=== PATIENT | male | born 1955 | race Caucasian/White ===

== ENCOUNTER 2017-04-25 14:02 | Inpatient (IN) | payer MEDICARE, MEDICAID ==
[~2017-04-25] VITALS: Ht 177.8 cm; Wt 103.9 kg
[2017-04-25 14:04] VITALS: BP 107/56
[2017-04-25 15:07] LABS: BASOPHILS % (AUTO) 0.5 % (0.0-2.0); EOSINOPHILS % (AUTO) 0.4 % (0.0-3.0); HEMATOCRIT 26.7 % (42.0-52.0); HEMOGLOBIN 8.1 G/DL (14.2-18.0); LYMPHOCYTES % (AUTO) 16.9 % (20.0-45.0); MEAN CORPUSCULAR VOLUME 71 FL (80-99); MONOCYTES % (AUTO) 6.1 % (1.0-10.0); NEUTROPHILS % (AUTO) 76.1 % (45.0-75.0); PLATELET COUNT 514 K/UL (150-450); RED BLOOD COUNT 3.78 M/UL (4.70-6.10); RED CELL DISTRIBUTION WIDTH 16.4 % (11.6-14.8); WHITE BLOOD COUNT 12.7 K/UL (4.8-10.8)
[2017-04-25 15:17] LABS: ANION GAP 4 mmol/L (5-15); BLOOD UREA NITROGEN 12 mg/dL (7-18); CARBON DIOXIDE 29 MMOL/L (21-32); CHLORIDE 102 MMOL/L (98-107); CREATININE 0.6 MG/DL (0.55-1.30); POTASSIUM 3.9 MMOL/L (3.5-5.1); SODIUM 135 MMOL/L (136-145)
[2017-04-25 15:19] LABS: INR 1.4 (0.9-1.1)
[2017-04-25] MEDS ORDERED: ATIVAN1 MG ORAL (15:22)
[2017-04-25] MEDS ORDERED: XARELTO10 MG ORAL (15:22)
[2017-04-25] MEDS ORDERED: ASPIR 8181 MG ORAL (15:22)
[2017-04-25] MEDS ORDERED: ZYPREXA5 MG ORAL (15:22)
[2017-04-25] MEDS ORDERED: METOPROLOL SUCC25 MG ORAL (15:22)
[2017-04-25] MEDS ORDERED: HYDRALAZINE HCL50 MG ORAL (15:22)
[2017-04-25] MEDS ORDERED: TRAZODONE HCL50 MG ORAL (15:22)
[2017-04-25] MEDS ORDERED: NORCO 10-325 T1 EACH ORAL (15:22)
[2017-04-25] MEDS ORDERED: ABILIFY2 MG ORAL (15:22)
[2017-04-25] MEDS ORDERED: FERROUS SULFAT325 MG ORAL (15:22)
[2017-04-25] MEDS ORDERED: CARDIZEM30 M1 PO (15:22)
[2017-04-25] MEDS ORDERED: BISACODYL5 MG ORAL (15:22)
--- NOTE | 2017-04-25 15:27 | Diagnostic Imaging Report ---
Indication: Cough, shortness of breath Technique: One view of the chest Comparison: none Findings: The heart is enlarged. There is pleural fluid on the left. Hazy opacities are seen at both lung bases, may reflect overlying soft tissue but infiltrates/edema suspected Impression: Left-sided pleural effusion Bibasilar infiltrates or edema Cardiomegaly
[2017-04-25 15:28] LABS: APPEARANCE,URINE CLEAR; BILIRUBIN, URINE NEGATIVE (NEGATIVE); GLUCOSE, URINE (UA) NEGATIVE (NEGATIVE); KETONES,URINE 1+ (NEGATIVE); LEUKOCYTE ESTERASE ,URINE 1+ (NEGATIVE); NITRITE,URINE NEGATIVE (NEGATIVE); PH,URINE 5 (4.5-8.0); PROTEIN,URINE 1+ (NEGATIVE); UROBILINOGEN,URINE 1 MG/DL (0.0-1.0)
[2017-04-25 15:31] LABS: COLOR,URINE YELLOW
[2017-04-25 15:31] LABS: ALANINE AMINOTRANSFERASE 52 U/L (12-78); ALBUMIN 1.5 G/DL (3.4-5.0); ALBUMIN/GLOBULIN RATIO 0.3 (1.0-2.7); ALKALINE PHOSPHATASE 108 U/L (46-116); ASPARTATE AMINO TRANSFERASE 67 U/L (15-37); BILIRUBIN,TOTAL 0.4 MG/DL (0.2-1.0); CKMB < 0.5 NG/ML (0.0-3.6); CREATINE KINASE 32 U/L (26-308)
[2017-04-25 16:05] VITALS: BP 119/70
--- NOTE | 2017-04-25 16:12 | Diagnostic Imaging Report ---
Indications: Head trauma Technique: Spiral acquisitions obtained through the brain. Angled axial and coronal 5 x 5 mm slices were reconstructed. Total dose length product 1537.87 mGycm. CTDI vol(s) 70.38 mGy. Dose reduction achieved using automated exposure control Comparison: None. Findings: There is a bilobed subcutaneous lesion in the left posterior temporal parietal scalp which measures 3.7 cm AP by 4.3 cm craniocaudad, elevates the overlying skin. No acute intracranial hemorrhage or edema, mass effect, nor midline shift. Normal burger-white differentiation. There is minimal age-related enlargement of the ventricles and extra axial CSF spaces and minimal periventricular deep white matter low-attenuation. The calvarium is intact. There is mastoid opacification on the left, and minimal mastoid opacification on the right. Visualized orbits and sinuses are unremarkable Impression: Negative for acute intracranial bleed or mass effect Mild chronic and age-related changes, as described Left temporoparietal subcutaneous scalp lesion, presumably a dermal lesion, should be clinically evident The CT scanner at [facility] is accredited by the [employer] and the scans are performed using protocols designed to limit radiation exposure to as low as reasonably achievable to attain images of sufficient resolution adequate for diagnostic evaluation.
[2017-04-25] MEDS ORDERED: Albuterol/Ipratropium 3ml neb HHN PRN (18:45)
--- NOTE | 2017-04-25 19:13 | Emergency Room Report ---
History of Present Illness General Chief Complaint: Abnormal Labs Source: Patient, EMS Present Illness HPI 62-year-old male presents ED for evaluation. Patient coming from intermediate for low hemoglobin. Patient also complaining of shortness of breath. Denies any chest pain. Denies any cough. Denies any fevers or chills. Denies any blood in stool. No other aggravating or relieving factors. 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 Hx Gastrointestinal Problems: No Review of Systems All Other Systems: negative except mentioned in HPI Physical Exam Vital Signs Date Time Temp Pulse Resp B/P (MAP) Pulse Ox O2 Delivery O2 Flow Rate FiO2 04/25/17 13:54 97.9 73 19 102/67 97 Nasal Cannula 3.0 97.9 Sp02 EP Interpretation: reviewed, normal General Appearance: no apparent distress, alert, GCS 15, non-toxic Head: normocephalic, atraumatic Eyes: bilateral eye normal inspection, bilateral eye PERRL ENT: hearing grossly normal, normal pharynx, no angioedema, normal voice Neck: full range of motion, supple/symm/no masses Respiratory: chest non-tender, lungs clear, normal breath sounds, speaking full sentences Cardiovascular #1: regular rate, rhythm, no edema Cardiovascular #2: 2+ carotid (R), 2+ carotid (L), 2+ radial (R), 2+ radial (L) , 2+ dorsalis pedis (R), 2+ dorsalis pedis (L) Gastrointestinal: normal bowel sounds, non tender, soft, non-distended, no guarding, no rebound Rectal: deferred Genitourinary: normal inspection, no CVA tenderness Musculoskeletal: back normal, gait/station normal, normal range of motion, non- tender Neurologic: alert, oriented x3, responsive, motor strength/tone normal, sensory intact, speech normal Psychiatric: judgement/insight normal, memory normal, mood/affect normal, no suicidal/homicidal ideation Reflexes: 3+ bicep (R), 3+ bicep (L), 3+ tricep (R), 3+ tricep (L), 3+ knee (R) , 3+ knee (L) Skin: normal color, no rash, warm/dry, well hydrated Lymphatic: no adenopathy Medical Decision Making Diagnostic Impression: Primary Impression: Shortness of breath Additional Impressions: Pneumonia Qualified Codes: J18.1 - Lobar pneumonia, unspecified organism Anemia Qualified Codes: D64.9 - Anemia, unspecified ER Course Hospital Course 62-year-old male presents ED with shortness of breath, weakness, sent in for low hemoglobin Differential diagnoses include: Pneumonia, CHF exacerbation, pneumothorax, fluid overload Clinical course Patient placed on stretcher. 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 After initial history and physical, I ordered labs, IV fluids, EKG, chest x-ray, blood cultures, UA. Patient placed on nasal cannula with O2 saturation improving Labs -leukocytosis noted, hemoglobin 8.1, electrolytes ok, trop negative CXR - bilateral interstitial edema vs infiltrates abx given. no indication for tranfusions at this time Case discussed with Dr. Lira and he agreed to the patient to his service for further care and support I feel this is a highly complex case requiring extensive working including EKG/ Rhythm strip, Xray/CT/US, Blood/urine lab work, repeat exams while in ED, and administration of strong opiates/narcotics for pain control, admission to hospital or close patient follow up. Diagnosis - pneumonia, sob, anemia Patient admitted to telemetry in serious condition Labs Test 04/25/17 14:40 04/25/17 14:50 White Blood Count 12.7 K/UL (4.8-10.8) Red Blood Count 3.78 M/UL (4.70-6.10) Hemoglobin 8.1 G/DL (14.2-18.0) Hematocrit 26.7 % (42.0-52.0) Mean Corpuscular Volume 71 FL (80-99) Mean Corpuscular Hemoglobin 21.4 PG (27.0-31.0) Mean Corpuscular Hemoglobin Concent 30.4 G/DL (32.0-36.0) Red Cell Distribution Width 16.4 % (11.6-14.8) Platelet Count 514 K/UL (150-450) Mean Platelet Volume 5.0 FL (6.5-10.1) Neutrophils (%) (Auto) 76.1 % (45.0-75.0) Lymphocytes (%) (Auto) 16.9 % (20.0-45.0) Monocytes (%) (Auto) 6.1 % (1.0-10.0) Eosinophils (%) (Auto) 0.4 % (0.0-3.0) Basophils (%) (Auto) 0.5 % (0.0-2.0) Prothrombin Time 14.7 SEC (9.30-11.50) Prothromb Time International Ratio 1.4 (0.9-1.1) Activated Partial Thromboplast Time 41 SEC (23-33) Sodium Level 135 MMOL/L (136-145) Potassium Level 3.9 MMOL/L (3.5-5.1) Chloride Level 102 MMOL/L (98-107) Carbon Dioxide Level 29 MMOL/L (21-32) Anion Gap 4 mmol/L (5-15) Blood Urea Nitrogen 12 mg/dL (7-18) Creatinine 0.6 MG/DL (0.55-1.30) Estimat Glomerular Filtration Rate > 60 mL/min (>60) Glucose Level 115 MG/DL (74-106) Lactic Acid Level 0.80 mmol/L (0.66-2.22) Calcium Level 10.0 MG/DL (8.5-10.1) Total Bilirubin 0.4 MG/DL (0.2-1.0) Aspartate Amino Transf (AST/SGOT) 67 U/L (15-37) Alanine Aminotransferase (ALT/SGPT) 52 U/L (12-78) Alkaline Phosphatase 108 U/L (46-116) Total Creatine Kinase 32 U/L (26-308) Creatine Kinase MB < 0.5 NG/ML (0.0-3.6) Creatine Kinase MB Relative Index 1.5 Troponin I 0.000 ng/mL (0.000-0.056) Pro-B-Type Natriuretic Peptide 454 pg/mL (0-125) Total Protein 7.2 G/DL (6.4-8.2) Albumin 1.5 G/DL (3.4-5.0) Globulin 5.7 g/dL Albumin/Globulin Ratio 0.3 (1.0-2.7) Urine Color Yellow Urine Appearance Clear Urine pH 5 (4.5-8.0) Urine Specific [place] 1.020 (1.005-1.035) Urine Protein 1+ (NEGATIVE) Urine Glucose (UA) Negative (NEGATIVE) Urine Ketones 1+ (NEGATIVE) Urine Occult Blood Negative (NEGATIVE) Urine Nitrite Negative (NEGATIVE) Urine Bilirubin Negative (NEGATIVE) Urine Urobilinogen 1 MG/DL (0.0-1.0) Urine Leukocyte Esterase 1+ (NEGATIVE) Urine RBC 0-2 /HPF (0 - 0) Urine WBC 0-2 /HPF (0 - 0) Urine Squamous Epithelial Cells Occasional /LPF Urine Bacteria Occasional /HPF (NONE) Urine Mucus Occasional /LPF Chest X-Ray Diagnostic Results Chest X-Ray Diagnostic Results : Chest X-Ray Ordered: Yes # of Views/Limited/Complete: 1 View Indication: Shortness of Breath EP Interpretation: Yes Interpretation: no pneumothorax, other - bilateral effusion ? infiltrates Impression: Other - chf vs pna Electronically Signed by: Electronically signed by Phoenix Snyder MD Last Vital Signs Date Time Temp Pulse Resp B/P (MAP) Pulse Ox O2 Delivery O2 Flow Rate FiO2 04/25/17 17:01 98.0 65 15 119/70 97 Nasal Cannula 3.0 98.0 Status: improved Disposition: ADMITTED INPATIENT Condition: Serious Referrals: ANNA LIRA (PCP) PHOENIX SNYDER M.D. Apr 25, 2017 19:13
[2017-04-25 20:00] VITALS: BP 130/67
[2017-04-25] MEDS: Zoysn 3.37gm in NS 100ML IVPB SCH (20:00)
[2017-04-25] MEDS: Heparin 5000 units/ml inj SUBQ SCH (21:02)
[2017-04-25] MEDS: Albuterol ud Inhalation HHN SCH (21:31)
[2017-04-25] MEDS: HYDROcodone/Acetamin 10/325 tab ORAL PRN (23:03)
[2017-04-26] VITALS (7 sets, daily range): BP systolic 99–152; BP diastolic 55–81
[2017-04-26] MEDS: Zoysn 3.37gm in NS 100ML IVPB SCH ×2 (04:23→12:27)
[2017-04-26] MEDS: Heparin 5000 units/ml inj SUBQ SCH ×2 (09:59→20:51)
--- NOTE | 2017-04-26 10:42 | Consultation ---
History of Present Illness General Date patient seen: Apr 26, 2017 Time patient seen: 10:35 Chief Complaint: Abnormal Labs Present Illness HPI 62 y/o M with hx of HTN, Afib presents to ED on 04/25 from [place] for anemia, SOB, cough. Denies CP, f/c, melena, rash n/v/d Leukocytosis to 12.7, afebrile. CXR with bibasilar infiltartes. u/a neg. Allergies: Coded Allergies: FUROSEMIDE (Verified Allergy, Unknown, 04/25/17) Medication History Scheduled Aripiprazole* (Abilify*), 2 MG ORAL BID, (Reported) Aspirin* (Aspir 81*), 81 MG ORAL DAILY, (Reported) Bisacodyl* (Dulcolax*), 5 MG ORAL DAILY, (Reported) Diltiazem Hcl* (Cardizem*), 30 MG PO QID, (Reported) Ferrous Sulfate* (Ferrous Sulfate*), 325 MG ORAL DAILY, (Reported) Hydralazine Hcl* (Hydralazine Hcl*), 50 MG ORAL EVERY 8 HOURS, (Reported) Lorazepam* (Ativan*), 1 MG ORAL EVERY 8 HOURS, (Reported) Metoprolol Succinate* (Metoprolol Succinate*), 12.5 MG ORAL BID, (Reported) Olanzapine* (Zyprexa*), 5 MG ORAL DAILY, (Reported) Rivaroxaban (Xarelto*), 20 MG ORAL DAILY, (Reported) Trazodone Hcl* (Desyrel*), 50 MG ORAL BEDTIME, (Reported) Scheduled PRN Hydrocodone Bit/Acetaminophen 10-325* ([place] 10-325*), 1 TAB ORAL Q6H PRN for For Pain, (Reported) Patient History Healthcare decision maker PT Resuscitation status Advanced Directive on File Patient History Narrative Pmhx: as above Shx: Denies: smoking, alcohol use, drug use Fhx: non contributory Review of Systems All Other Systems: negative except mentioned in HPI Physical Exam Physical Exam Narrative General Appearance: no apparent distress, alert,non-toxic HEENT: normocephalic, atraumatic, normal pharynx, Neck: full range of motion, supple/symm/no masses Respiratory: chest non-tender, lungs clear, normal breath sounds, speaking full sentences Cardiovascular : regular rate, rhythm, no edema Gastrointestinal: normal bowel sounds, non tender, soft, non-distended, no guarding, no rebound Genitourinary: normal inspection, no CVA tenderness Musculoskeletal: back normal, gait/station normal, normal range of motion, non- tender Neurologic: alert, oriented x3, responsive, motor strength/tone normal, sensory intact, speech normal Skin: normal color, no rash, warm/dry, well hydrated Lymphatic: no adenopathy Last 24 Hour Vital Signs Date Time Temp Pulse Resp B/P (MAP) Pulse Ox O2 Delivery O2 Flow Rate FiO2 04/26/17 08:00 98.2 81 19 129/81 96 Room Air 98.2 04/26/17 04:00 77 04/26/17 04:00 98.6 81 20 99/56 95 Room Air 98.6 04/26/17 00:00 98.2 89 24 106/55 92 Room Air 98.2 04/26/17 00:00 94 04/25/17 21:42 87 18 97 Nasal Cannula 2.0 28 04/25/17 21:41 28 04/25/17 21:32 81 18 93 Nasal Cannula 2.0 28 04/25/17 21:29 Nasal Cannula 2.0 28 04/25/17 21:27 94 18 Nasal Cannula 2.0 28 04/25/17 20:00 98.1 72 20 130/67 96 Nasal Cannula 3.0 98.1 04/25/17 20:00 77 04/25/17 17:01 98.0 65 15 119/70 97 Nasal Cannula 3.0 98.0 04/25/17 16:05 98.0 65 15 119/70 97 Nasal Cannula 3.0 98.0 04/25/17 14:04 97.7 71 23 107/56 98 Nasal Cannula 3.0 97.7 04/25/17 13:54 97.9 73 19 102/67 97 Nasal Cannula 3.0 97.9 Intake and Output 04/25/17 04/26/17 19:00 07:00 Intake Total 1000 ml Output Total 100 ml 200 ml Balance 900 ml -200 ml Intake IV Total 1000 ml Output Urine Total 100 ml 200 ml # Voids 1 Laboratory Tests Test 04/25/17 14:40 04/25/17 14:50 White Blood Count 12.7 K/UL (4.8-10.8) H Red Blood Count 3.78 M/UL (4.70-6.10) L Hemoglobin 8.1 G/DL (14.2-18.0) L Hematocrit 26.7 % (42.0-52.0) L Mean Corpuscular Volume 71 FL (80-99) L Mean Corpuscular Hemoglobin 21.4 PG (27.0-31.0) L Mean Corpuscular Hemoglobin Concent 30.4 G/DL (32.0-36.0) L Red Cell Distribution Width 16.4 % (11.6-14.8) H Platelet Count 514 K/UL (150-450) H Mean Platelet Volume 5.0 FL (6.5-10.1) L Neutrophils (%) (Auto) 76.1 % (45.0-75.0) H Lymphocytes (%) (Auto) 16.9 % (20.0-45.0) L Monocytes (%) (Auto) 6.1 % (1.0-10.0) Eosinophils (%) (Auto) 0.4 % (0.0-3.0) Basophils (%) (Auto) 0.5 % (0.0-2.0) Prothrombin Time 14.7 SEC (9.30-11.50) H Prothromb Time International Ratio 1.4 (0.9-1.1) H Activated Partial Thromboplast Time 41 SEC (23-33) H Sodium Level 135 MMOL/L (136-145) L Potassium Level 3.9 MMOL/L (3.5-5.1) Chloride Level 102 MMOL/L (98-107) Carbon Dioxide Level 29 MMOL/L (21-32) Anion Gap 4 mmol/L (5-15) L Blood Urea Nitrogen 12 mg/dL (7-18) Creatinine 0.6 MG/DL (0.55-1.30) Estimat Glomerular Filtration Rate > 60 mL/min (>60) Glucose Level 115 MG/DL (74-106) H Lactic Acid Level 0.80 mmol/L (0.66-2.22) Calcium Level 10.0 MG/DL (8.5-10.1) Total Bilirubin 0.4 MG/DL (0.2-1.0) Aspartate Amino Transf (AST/SGOT) 67 U/L (15-37) H Alanine Aminotransferase (ALT/SGPT) 52 U/L (12-78) Alkaline Phosphatase 108 U/L (46-116) Total Creatine Kinase 32 U/L (26-308) Creatine Kinase MB < 0.5 NG/ML (0.0-3.6) Creatine Kinase MB Relative Index 1.5 Troponin I 0.000 ng/mL (0.000-0.056) Pro-B-Type Natriuretic Peptide 454 pg/mL (0-125) H Total Protein 7.2 G/DL (6.4-8.2) Albumin 1.5 G/DL (3.4-5.0) L Globulin 5.7 g/dL Albumin/Globulin Ratio 0.3 (1.0-2.7) L Urine Color Yellow Urine Appearance Clear Urine pH 5 (4.5-8.0) Urine Specific [place] 1.020 (1.005-1.035) Urine Protein 1+ (NEGATIVE) H Urine Glucose (UA) Negative (NEGATIVE) Urine Ketones 1+ (NEGATIVE) H Urine Occult Blood Negative (NEGATIVE) Urine Nitrite Negative (NEGATIVE) Urine Bilirubin Negative (NEGATIVE) Urine Urobilinogen 1 MG/DL (0.0-1.0) H Urine Leukocyte Esterase 1+ (NEGATIVE) H Urine RBC 0-2 /HPF (0 - 0) H Urine WBC 0-2 /HPF (0 - 0) Urine Squamous Epithelial Cells Occasional /LPF Urine Bacteria Occasional /HPF (NONE) Urine Mucus Occasional /LPF Height (Feet): 5 Height (Inches): 10.00 Weight (Pounds): 230 Medications Current Medications Medications (Trade) Dose Ordered Sig/[place] Route PRN Reason Start Time Stop Time Status Last Admin Dose Admin Acetaminophen (Tylenol) 650 mg Q4H PRN ORAL Mild Pain/Temp > 100.5 04/25/17 18:45 05/25/17 18:44 Acetaminophen/ Hydrocodone Bitart ([place] 10/325) 1 tab Q6HR PRN ORAL For Pain 04/25/17 22:15 05/02/17 22:14 04/25/17 23:03 Albuterol Sulfate (Proventil) 2.5 mg BIDRT HHN 04/25/17 17:15 04/30/17 17:14 04/25/17 21:31 Albuterol/ Ipratropium (Albuterol/ Ipratropium) 3 ml Q4HRT PRN HHN shortness of breath 04/25/17 18:45 04/30/17 18:44 Heparin Sodium (Porcine) (Heparin 5000 units/ml) 5,000 units EVERY 12 HOURS SUBQ 04/25/17 21:00 05/25/17 20:59 04/26/17 09:59 Piperacillin Sod/ Tazobactam Sod 3.375 gm/Sodium Chloride 110 ml @ 27.5 mls/hr Q8H IVPB 04/25/17 20:00 05/02/17 23:59 04/26/17 04:23 Assessment/Plan Assessment/Plan Abx: Zosyn 04/25- Levaquin x1 04/25 Assessment: SOB- PNA vs pulmonary edema -sp cx p -influenza sc p Mild leukocytosis -afebrile -u/a neg -Bcx p HTN Afib Plan: -Switch Zosyn #2 to Ceftrixone and Azithromycin for possible PNA -f/u cx -Monitor CBC/CMP, temperatures Thank you for this consultation. Will continue to follow along with you. Discussed with Ofelia Saravia M.D. Apr 26, 2017 10:42
[2017-04-26] MEDS: HYDROcodone/Acetamin 10/325 tab ORAL PRN ×2 (11:07→20:38)
[2017-04-26] MEDS: Albuterol ud Inhalation HHN SCH ×2 (11:15→21:17)
--- NOTE | 2017-04-26 13:23 | Consultation ---
History of Present Illness General Date patient seen: Apr 26, 2017 Chief Complaint: Abnormal Labs Present Illness HPI 62-year-old male with hx of Afib, COPD, smoking, presents ED for evaluation of shortness of breath and cough for a few days. He was smoking up to a few month ago. Denies any chest pain. Denies any cough. Denies any fevers or chills. He was borderline hypotensive and tachycardic and admitted to telemetry. Allergies: Coded Allergies: FUROSEMIDE (Verified Allergy, Unknown, 04/25/17) Medication History Scheduled Aripiprazole* (Abilify*), 2 MG ORAL BID, (Reported) Aspirin* (Aspir 81*), 81 MG ORAL DAILY, (Reported) Bisacodyl* (Dulcolax*), 5 MG ORAL DAILY, (Reported) Diltiazem Hcl* (Cardizem*), 30 MG PO QID, (Reported) Ferrous Sulfate* (Ferrous Sulfate*), 325 MG ORAL DAILY, (Reported) Hydralazine Hcl* (Hydralazine Hcl*), 50 MG ORAL EVERY 8 HOURS, (Reported) Lorazepam* (Ativan*), 1 MG ORAL EVERY 8 HOURS, (Reported) Metoprolol Succinate* (Metoprolol Succinate*), 12.5 MG ORAL BID, (Reported) Olanzapine* (Zyprexa*), 5 MG ORAL DAILY, (Reported) Rivaroxaban (Xarelto*), 20 MG ORAL DAILY, (Reported) Trazodone Hcl* (Desyrel*), 50 MG ORAL BEDTIME, (Reported) Scheduled PRN Hydrocodone Bit/Acetaminophen 10-325* ([place] 10-325*), 1 TAB ORAL Q6H PRN for For Pain, (Reported) Patient History Healthcare decision maker PT Resuscitation status Advanced Directive on File Past Medical/Surgical History Past Medical/Surgical History: (1) COPD (chronic obstructive pulmonary disease) (2) History of smoking Review of Systems All Other Systems: negative except mentioned in HPI Physical Exam General Appearance: WD/WN Lines, tubes and drains: peripheral HEENT: normocephalic, atraumatic Neck: non-tender, normal alignment Respiratory/Chest: chest wall non-tender, lungs clear Breasts: no masses Cardiovascular/Chest: normal peripheral pulses, normal rate Abdomen: normal bowel sounds, non tender Last 24 Hour Vital Signs Date Time Temp Pulse Resp B/P (MAP) Pulse Ox O2 Delivery O2 Flow Rate FiO2 04/26/17 12:06 98.2 04/26/17 12:00 98.2 89 19 136/72 97 Room Air 98.2 04/26/17 08:00 98.2 81 19 129/81 96 Room Air 98.2 04/26/17 04:00 77 04/26/17 04:00 98.6 81 20 99/56 95 Room Air 98.6 04/26/17 00:00 98.2 89 24 106/55 92 Room Air 98.2 04/26/17 00:00 94 04/25/17 21:42 87 18 97 Nasal Cannula 2.0 28 04/25/17 21:41 28 04/25/17 21:32 81 18 93 Nasal Cannula 2.0 28 04/25/17 21:29 Nasal Cannula 2.0 28 04/25/17 21:27 94 18 Nasal Cannula 2.0 28 04/25/17 20:00 98.1 72 20 130/67 96 Nasal Cannula 3.0 98.1 04/25/17 20:00 77 04/25/17 17:01 98.0 65 15 119/70 97 Nasal Cannula 3.0 98.0 04/25/17 16:05 98.0 65 15 119/70 97 Nasal Cannula 3.0 98.0 04/25/17 14:04 97.7 71 23 107/56 98 Nasal Cannula 3.0 97.7 04/25/17 13:54 97.9 73 19 102/67 97 Nasal Cannula 3.0 97.9 Intake and Output 04/25/17 04/26/17 19:00 07:00 Intake Total 1000 ml Output Total 100 ml 200 ml Balance 900 ml -200 ml Intake IV Total 1000 ml Output Urine Total 100 ml 200 ml # Voids 1 Laboratory Tests Test 04/25/17 14:40 04/25/17 14:50 White Blood Count 12.7 K/UL (4.8-10.8) H Red Blood Count 3.78 M/UL (4.70-6.10) L Hemoglobin 8.1 G/DL (14.2-18.0) L Hematocrit 26.7 % (42.0-52.0) L Mean Corpuscular Volume 71 FL (80-99) L Mean Corpuscular Hemoglobin 21.4 PG (27.0-31.0) L Mean Corpuscular Hemoglobin Concent 30.4 G/DL (32.0-36.0) L Red Cell Distribution Width 16.4 % (11.6-14.8) H Platelet Count 514 K/UL (150-450) H Mean Platelet Volume 5.0 FL (6.5-10.1) L Neutrophils (%) (Auto) 76.1 % (45.0-75.0) H Lymphocytes (%) (Auto) 16.9 % (20.0-45.0) L Monocytes (%) (Auto) 6.1 % (1.0-10.0) Eosinophils (%) (Auto) 0.4 % (0.0-3.0) Basophils (%) (Auto) 0.5 % (0.0-2.0) Prothrombin Time 14.7 SEC (9.30-11.50) H Prothromb Time International Ratio 1.4 (0.9-1.1) H Activated Partial Thromboplast Time 41 SEC (23-33) H Sodium Level 135 MMOL/L (136-145) L Potassium Level 3.9 MMOL/L (3.5-5.1) Chloride Level 102 MMOL/L (98-107) Carbon Dioxide Level 29 MMOL/L (21-32) Anion Gap 4 mmol/L (5-15) L Blood Urea Nitrogen 12 mg/dL (7-18) Creatinine 0.6 MG/DL (0.55-1.30) Estimat Glomerular Filtration Rate > 60 mL/min (>60) Glucose Level 115 MG/DL (74-106) H Lactic Acid Level 0.80 mmol/L (0.66-2.22) Calcium Level 10.0 MG/DL (8.5-10.1) Total Bilirubin 0.4 MG/DL (0.2-1.0) Aspartate Amino Transf (AST/SGOT) 67 U/L (15-37) H Alanine Aminotransferase (ALT/SGPT) 52 U/L (12-78) Alkaline Phosphatase 108 U/L (46-116) Total Creatine Kinase 32 U/L (26-308) Creatine Kinase MB < 0.5 NG/ML (0.0-3.6) Creatine Kinase MB Relative Index 1.5 Troponin I 0.000 ng/mL (0.000-0.056) Pro-B-Type Natriuretic Peptide 454 pg/mL (0-125) H Total Protein 7.2 G/DL (6.4-8.2) Albumin 1.5 G/DL (3.4-5.0) L Globulin 5.7 g/dL Albumin/Globulin Ratio 0.3 (1.0-2.7) L Urine Color Yellow Urine Appearance Clear Urine pH 5 (4.5-8.0) Urine Specific [place] 1.020 (1.005-1.035) Urine Protein 1+ (NEGATIVE) H Urine Glucose (UA) Negative (NEGATIVE) Urine Ketones 1+ (NEGATIVE) H Urine Occult Blood Negative (NEGATIVE) Urine Nitrite Negative (NEGATIVE) Urine Bilirubin Negative (NEGATIVE) Urine Urobilinogen 1 MG/DL (0.0-1.0) H Urine Leukocyte Esterase 1+ (NEGATIVE) H Urine RBC 0-2 /HPF (0 - 0) H Urine WBC 0-2 /HPF (0 - 0) Urine Squamous Epithelial Cells Occasional /LPF Urine Bacteria Occasional /HPF (NONE) Urine Mucus Occasional /LPF Height (Feet): 5 Height (Inches): 10.00 Weight (Pounds): 230 Medications Current Medications Medications (Trade) Dose Ordered Sig/[place] Route PRN Reason Start Time Stop Time Status Last Admin Dose Admin Acetaminophen (Tylenol) 650 mg Q4H PRN ORAL Mild Pain/Temp > 100.5 04/25/17 18:45 05/25/17 18:44 Acetaminophen/ Hydrocodone Bitart ([place] 10/325) 1 tab Q6HR PRN ORAL For Pain 04/25/17 22:15 05/02/17 22:14 04/26/17 11:07 Albuterol Sulfate (Proventil) 2.5 mg BIDRT HHN 04/25/17 17:15 04/30/17 17:14 04/26/17 11:15 Albuterol/ Ipratropium (Albuterol/ Ipratropium) 3 ml Q4HRT PRN HHN shortness of breath 04/25/17 18:45 04/30/17 18:44 Heparin Sodium (Porcine) (Heparin 5000 units/ml) 5,000 units EVERY 12 HOURS SUBQ 04/25/17 21:00 05/25/17 20:59 04/26/17 09:59 Piperacillin Sod/ Tazobactam Sod 3.375 gm/Sodium Chloride 110 ml @ 27.5 mls/hr Q8H IVPB 04/25/17 20:00 05/02/17 23:59 04/26/17 12:27 Assessment/Plan Problem List: (1) Shortness of breath ICD Codes: R06.02 - Shortness of breath SNOMED: 685947608 (2) COPD (chronic obstructive pulmonary disease) ICD Codes: J44.9 - Chronic obstructive pulmonary disease, unspecified SNOMED: 37765155 (3) History of smoking ICD Codes: Z87.891 - Personal history of nicotine dependence SNOMED: [id number] (4) Urinary tract infection ICD Codes: N39.0 - Urinary tract infection, site not specified SNOMED: 90182598 (5) Anemia ICD Codes: D64.9 - Anemia, unspecified SNOMED: 558977626 Qualifiers: Qualified Codes: D64.9 - Anemia, unspecified Assessment/Plan respiratory treatment check sputum titrate fio2 chest pt ID evaluation cardiac evaluation echo anemia w/u Iker Avina MD Apr 26, 2017 13:23
--- NOTE | 2017-04-26 15:54 | Cardiology Report ---
APPROVED REPORT EKG Measurement Heart [id number] Normal sinus rhythm with sinus arrhythmia Right bundle branch block T wave abnormality, consider inferolateral ischemia Abnormal ECG
--- NOTE | 2017-04-26 19:30 | History and Physical Report ---
DATE OF ADMISSION: 04/25/2017 ATTENDING PHYSICIAN: Ameya Fulton D.O. CONSULTANTS: 1. Iker Avina M.D. 2. Law Ann M.D. 3. Juaquin Carpenter M.D. CHIEF COMPLAINT: Shortness of breath, respiratory distress, pneumonia, sepsis, and anemia. BRIEF HISTORY: This is a 62-year-old male from [facility], presented with the above-mentioned diagnosis with shortness of breath for two days, getting worse, slight coughing, came in to [facility], diagnosed with pneumonia and sepsis, admitted to telemetry for further care. Currently slightly weak, slightly short of breath in bed. No complaint. PAST MEDICAL HISTORY: COPD, hypertension, and psychiatric history. PAST SURGICAL HISTORY: Unknown. The patient does not know. MEDICATIONS: [place], heparin, Zosyn, albuterol, Tylenol, levofloxacin, and IV fluids. ALLERGIES: Lasix. SOCIAL HISTORY: No smoking. No alcohol. No intravenous drug abuse. FAMILY HISTORY: Noncontributory. REVIEW OF SYSTEMS: No chest pain. Slight shortness of breath. No nausea, vomiting, or diarrhea. PHYSICAL EXAMINATION: GENERAL: Calm in bed, oriented x2, slightly short of breath. VITAL SIGNS: Temperature is 98 degrees, pulse 89, respirations 19, and blood pressure 136/72. CARDIOVASCULAR: No murmur. LUNGS: Poor air exchange. ABDOMEN: Bowel sounds distant. EXTREMITIES: No cyanosis, clubbing, or edema. NEUROLOGIC: The patient moves all extremities, but slightly weak. LABORATORY AND DIAGNOSTIC DATA: Labs at this time show white count 12.7, hemoglobin and hematocrit 8.1 and 26 and platelets 514. BMP shows sodium 135, glucose 115. AST 67. Troponin 0.00. BNP is 454. Albumin 1.5. INR is 1.4 and PTT is 41. Urinalysis shows 1+ leukocyte esterase. ASSESSMENT: 1. Shortness of breath. 2. Pneumonia. 3. Urinary tract infection. 4. Sepsis. 5. Chronic obstructive pulmonary disease. 6. Hypertension. 7. Psychiatric history. 8. Hypoalbumin. 9. Respiratory distress. 10. Anemia. PLAN: Continue previous medications. O2 and pulmonary treatment. Antibiotics per Infectious Disease. OT/PT. Dietary evaluation. CBC and BMP in the morning. Dr. Avina, Dr. Ann, Dr. Carpenter and Dr. Dahl to consult. We will continue to follow this patient medically. Ameya Fulton D.O. DR: MERNA JOB#: [id number] CC:
[2017-04-26] MEDS: Azithromycin 250mg tab ORAL SCH (20:32)
[2017-04-26] MEDS: cefTRIAXone 1 GM in NS 55 ML IVPB SCH (20:39)
--- NOTE | 2017-04-26 23:40 | Cardiology Progress Note ---
Assessment/Plan Assessment/Plan The patient is seen and examined, full consult note will be dictated shortly. Objective Last 24 Hour Vital Signs Date Time Temp Pulse Resp B/P (MAP) Pulse Ox O2 Delivery O2 Flow Rate FiO2 04/26/17 22:14 86 04/26/17 22:06 98.0 86 20 152/78 91 Room Air 98.0 04/26/17 20:38 98.0 04/26/17 20:00 98.0 86 20 152/78 91 Room Air 98.0 04/26/17 19:43 88 18 96 Room Air 21 04/26/17 19:37 Room Air 21 04/26/17 19:36 87 18 Room Air 21 04/26/17 19:36 82 17 93 Room Air 21 04/26/17 16:00 91 04/26/17 16:00 98.0 89 19 121/68 94 Room Air 98.0 04/26/17 12:06 98.2 04/26/17 12:00 109 04/26/17 12:00 98.2 89 19 136/72 97 Room Air 98.2 04/26/17 11:00 84 18 97 Room Air 04/26/17 10:50 89 17 97 Room Air 04/26/17 10:50 Room Air 04/26/17 10:50 89 17 Room Air 04/26/17 08:00 98.2 81 19 129/81 96 Room Air 98.2 04/26/17 08:00 75 04/26/17 04:00 77 04/26/17 04:00 98.6 81 20 99/56 95 Room Air 98.6 04/26/17 00:00 98.2 89 24 106/55 92 Room Air 98.2 04/26/17 00:00 94 Intake and Output 04/25/17 04/26/17 19:00 07:00 Intake Total 1000 ml Output Total 100 ml 200 ml Balance 900 ml -200 ml Intake IV Total 1000 ml Output Urine Total 100 ml 200 ml # Voids 1 ELISABETH CONTE Apr 26, 2017 23:40
[2017-04-27] VITALS: BP 152/72
[2017-04-27 04:00] VITALS: BP 130/75
[2017-04-27 08:00] LABS: HEMATOCRIT 25.5 % (42.0-52.0); HEMOGLOBIN 7.9 G/DL (14.2-18.0); MEAN CORPUSCULAR VOLUME 71 FL (80-99); PLATELET COUNT 420 K/UL (150-450); RED BLOOD COUNT 3.61 M/UL (4.70-6.10); WHITE BLOOD COUNT 12.3 K/UL (4.8-10.8)
[2017-04-27] MEDS: Heparin 5000 units/ml inj SUBQ SCH ×2 (08:06→20:15)
[2017-04-27 08:17] LABS: ANION GAP 9 mmol/L (5-15); BLOOD UREA NITROGEN 8 mg/dL (7-18); CALCIUM 9.3 MG/DL (8.5-10.1); CARBON DIOXIDE 26 MMOL/L (21-32); CHLORIDE 104 MMOL/L (98-107); CREATININE 0.6 MG/DL (0.55-1.30); POTASSIUM 3.6 MMOL/L (3.5-5.1); SODIUM 139 MMOL/L (136-145)
[2017-04-27] MEDS: HYDROcodone/Acetamin 10/325 tab ORAL PRN ×2 (08:30→14:40)
[2017-04-27 08:36] VITALS: BP 132/74
[2017-04-27] MEDS: dilTIAZem HCl 30mg tab ORAL SCH ×3 (09:35→21:16)
[2017-04-27] MEDS: Metoprolol Tartrate 12.5mg TAB ORAL SCH ×2 (09:35→21:16)
[2017-04-27] MEDS: HydrALAZINE 50mg tab ORAL SCH ×3 (09:35→21:16)
--- NOTE | 2017-04-27 10:43 | GI Initial Consult Note ---
History of Present Illness General Date patient seen: Apr 27, 2017 Time patient seen: 10:36 Reason for Hospitalization: Abnormal Labs Referring physician: ANNA LIRA Reason for Consultation: GI BLEED Present Illness HPI 62-year-old male presents ED for evaluation. Patient coming [facility] for low hemoglobin. Patient also complaining of shortness of breath. Denies any chest pain. Denies any cough. Denies any fevers or chills. Denies any blood in stool. No other aggravating or relieving factors. Denies any other associated symptoms. GI consulted for anemia, possible GI bleed per reports of black stools. Pt seen, awake A&Ox4 NAD with no active s/sx of N/V/D. Per RN report, the patient had recent BM reported as black. No reports of any iron supplementation or uses of pepto bismo. He presents today with anemia and mild leukocytosis. Last colonoscopy was over 10 years ago. Home Meds Reported Medications Hydrocodone Bit/Acetaminophen 10-325* (NORCO 10-325*) 1 Each Tablet, 1 TAB ORAL Q6H Y for For Pain, #10 TAB 0 Refills PRN PAIN 04/25/17 Lorazepam* (ATIVAN*) 1 Mg Tablet, 1 MG ORAL EVERY 8 HOURS, TAB 04/25/17 Bisacodyl* (DULCOLAX*) 5 Mg Tablet.dr, 5 MG ORAL DAILY, #10 TAB 0 Refills 04/25/17 Trazodone Hcl* (DESYREL*) 50 Mg Tablet, 50 MG ORAL BEDTIME, TAB 04/25/17 Aspirin* (ASPIR 81*) 81 Mg Tablet.dr, 81 MG ORAL DAILY, TAB 04/25/17 Rivaroxaban (XARELTO*) 10 Mg Tablet, 20 MG ORAL DAILY, #30 TAB 0 Refills 04/25/17 Metoprolol Succinate* (METOPROLOL SUCCINATE*) 25 Mg Tab.er.24h, 12.5 MG ORAL BID , TAB 04/25/17 Ferrous Sulfate* (FERROUS SULFATE*) 325 Mg Tablet, 325 MG ORAL DAILY, #30 TAB 0 Refills 04/25/17 Aripiprazole* (ABILIFY*) 2 Mg Tablet, 2 MG ORAL BID, TAB 04/25/17 Olanzapine* (ZYPREXA*) 5 Mg Tablet, 5 MG ORAL DAILY, TAB 04/25/17 Hydralazine Hcl* (HYDRALAZINE HCL*) 50 Mg Tablet, 50 MG ORAL EVERY 8 HOURS, TAB 04/25/17 Diltiazem Hcl* (CARDIZEM*) 30 Mg Tablet, 30 MG PO QID, TAB 04/25/17 Med list reviewed/reconciled: Yes Allergies: Coded Allergies: FUROSEMIDE (Verified Allergy, Unknown, 04/25/17) Patient History Limited by: medical condition History Provided By: Patient, Medical Record PMH Narrative Past Medical History: HTN, AFib Past Surgical History: none Pertinent Family History: none Social History: Denies: smoking, alcohol use, drug use Immunizations: UTD Reviewed Nursing Documentation: PMH: Agreed, PSxH: Agreed Nursing Documentation-PMH Hx Cardiac Problems: Yes - AFIB, CP Hx Hypertension: Yes 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 Hx Gastrointestinal Problems: No Review of Systems All Other Systems: negative except mentioned in HPI Physical Exam Vital Signs Date Time Temp Pulse Resp B/P (MAP) Pulse Ox O2 Delivery O2 Flow Rate FiO2 04/25/17 13:54 97.9 73 19 102/67 97 Nasal Cannula 3.0 97.9 04/25/17 21:27 28 Sp02 EP Interpretation: reviewed, normal Labs Laboratory Tests Test 04/27/17 07:10 04/27/17 09:00 White Blood Count 12.3 K/UL (4.8-10.8) H Red Blood Count 3.61 M/UL (4.70-6.10) L Hemoglobin 7.9 G/DL (14.2-18.0) L Hematocrit 25.5 % (42.0-52.0) L Mean Corpuscular Volume 71 FL (80-99) L Mean Corpuscular Hemoglobin 21.9 PG (27.0-31.0) L Mean Corpuscular Hemoglobin Concent 30.9 G/DL (32.0-36.0) L Red Cell Distribution Width 17.0 % (11.6-14.8) H Platelet Count 420 K/UL (150-450) Mean Platelet Volume 5.0 FL (6.5-10.1) L Neutrophils (%) (Auto) % (45.0-75.0) Lymphocytes (%) (Auto) % (20.0-45.0) Monocytes (%) (Auto) % (1.0-10.0) Eosinophils (%) (Auto) % (0.0-3.0) Basophils (%) (Auto) % (0.0-2.0) Differential Total Cells Counted 100 Neutrophils % (Manual) 80 % (45-75) H Lymphocytes % (Manual) 13 % (20-45) L Monocytes % (Manual) 7 % (1-10) Eosinophils % (Manual) 0 % (0-3) Basophils % (Manual) 0 % (0-2) Band Neutrophils 0 % (0-8) Platelet Estimate Adequate Platelet Morphology Normal Hypochromasia 1+ Anisocytosis 1+ Microcytosis 1+ Sodium Level 139 MMOL/L (136-145) Potassium Level 3.6 MMOL/L (3.5-5.1) Chloride Level 104 MMOL/L (98-107) Carbon Dioxide Level 26 MMOL/L (21-32) Anion Gap 9 mmol/L (5-15) Blood Urea Nitrogen 8 mg/dL (7-18) Creatinine 0.6 MG/DL (0.55-1.30) Estimat Glomerular Filtration Rate > 60 mL/min (>60) Glucose Level 92 MG/DL (74-106) Calcium Level 9.3 MG/DL (8.5-10.1) Stool Occult Blood Pending General Appearance: well appearing, no apparent distress, alert Head: normocephalic EENT: PERRL/EOMI, normal ENT inspection Neck: supple Respiratory: normal breath sounds, no respiratory distress Cardiovascular: normal rate Gastrointestinal: normal inspection, non tender, soft, normal bowel sounds, non -distended Rectal: deferred Genitourinary: deferred Musculoskeletal: normal inspection, back normal Neurologic: normal inspection, alert, oriented x3, responsive Psychiatric: normal inspection, judgement/insight normal, memory normal Skin: normal inspection, normal color, no rash, warm/dry, palpation normal, well hydrated Lymphatic: normal inspection, no adenopathy Current Medications Current Medications Medications (Trade) Dose Ordered Sig/Juan Pablo Route PRN Reason Start Time Stop Time Status Last Admin Dose Admin Acetaminophen (Tylenol) 650 mg Q4H PRN ORAL Mild Pain/Temp > 100.5 04/25/17 18:45 05/25/17 18:44 Acetaminophen/ Hydrocodone Bitart (Dracut 10/325) 1 tab Q6HR PRN ORAL For Pain 04/25/17 22:15 05/02/17 22:14 04/27/17 08:30 Albuterol/ Ipratropium (Albuterol/ Ipratropium) 3 ml Q4HRT PRN HHN shortness of breath 04/25/17 18:45 04/30/17 18:44 Azithromycin (Zithromax) 500 mg Q24H ORAL 04/26/17 20:00 05/03/17 19:59 04/26/17 20:32 Ceftriaxone Sodium 1 gm/ Sodium Chloride 55 ml @ 110 mls/hr Q24H IVPB 04/26/17 20:00 05/03/17 19:59 04/26/17 20:39 Diltiazem HCl (Cardizem) 30 mg EVERY 8 HOURS ORAL 04/27/17 09:15 05/27/17 09:14 04/27/17 09:35 Heparin Sodium (Porcine) (Heparin 5000 units/ml) 5,000 units EVERY 12 HOURS SUBQ 04/25/17 21:00 05/25/17 20:59 04/26/17 20:51 Hydralazine HCl (Apresoline) 50 mg Q8HR ORAL 04/27/17 09:15 05/27/17 09:14 04/27/17 09:35 Metoprolol Tartrate (Lopressor) 12.5 mg Q12HR ORAL 04/27/17 09:15 05/27/17 09:14 04/27/17 09:35 GI: Plan Problems: (1) GI bleed (2) Anemia Plan OB stool pending EGD/colonoscopy tentatively scheduled for tomorrow. - maintain CLD, NPO @ [facility]. - hold all blood thinners tonight prn transfusions ppi fu labs additional recommendations to follow Discussed with Dr. Milner. Thank you for this patient referral, we will follow. Jammie Cote N.P. Apr 27, 2017 10:42
[2017-04-27 12:10] VITALS: BP 107/62
[2017-04-27] MEDS: Pantoprazole Inj IVP SCH ×2 (12:56→20:13)
--- NOTE | 2017-04-27 13:21 | Infectious Diseases Prog Note ---
Assessment/Plan Assessment/Plan Assessment: SOB- PNA vs pulmonary edema -CXR: Left-sided pleural effusion. Bibasilar infiltrates or edema. Cardiomegaly -sp cx normal winnie to date -influenza sc p Mild leukocytosis, stable -afebrile -u/a neg -Bcx NTD Anemia- -occult blood neg HTN Afib Plan: -Continue Ceftriaxone and Azithromycin abx d #3/ for possible PNA -04/26 SP ZOsyn #2 -04/25 SP LEvaquin x1 -f/u cx -Monitor CBC/CMP, temperatures -For EGD/COlo per GI -CBC, CXR am -f/u influenza Thank you for this consultation. Will continue to follow along with you. Discussed with RN. Subjective Allergies: Coded Allergies: FUROSEMIDE (Verified Allergy, Unknown, 04/25/17) Subjective afebrile leukocytosis stable sp cx NF to date Bcx NTD Objective Vital Signs Last 24 Hour Vital Signs Date Time Temp Pulse Resp B/P (MAP) Pulse Ox O2 Delivery O2 Flow Rate FiO2 04/27/17 12:10 98.2 75 18 107/62 90 Room Air 98.2 04/27/17 09:35 79 132/74 04/27/17 09:35 79 132/74 04/27/17 09:35 132/74 04/27/17 09:29 98.2 04/27/17 08:59 79 04/27/17 08:41 84 18 Room Air 04/27/17 08:41 Room Air 04/27/17 08:36 98.2 80 18 132/74 90 Room Air 98.2 04/27/17 08:30 98.2 04/27/17 04:00 83 04/27/17 04:00 98.2 76 20 130/75 90 Room Air 98.2 04/27/17 00:42 80 04/27/17 00:00 98.2 82 16 152/72 93 Room Air 98.2 04/26/17 22:14 86 04/26/17 22:06 98.0 86 20 152/78 91 Room Air 98.0 04/26/17 20:38 98.0 04/26/17 20:00 98.0 86 20 152/78 91 Room Air 98.0 04/26/17 19:43 88 18 96 Room Air 21 3/14/18 19:37 Room Air 21 04/26/17 19:36 87 18 Room Air 21 04/26/17 19:36 82 17 93 Room Air 21 04/26/17 16:00 91 04/26/17 16:00 98.0 89 19 121/68 94 Room Air 98.0 Height (Feet): 5 Height (Inches): 10.00 Weight (Pounds): 230 Objective General Appearance: no apparent distress, alert,non-toxic HEENT: normocephalic, atraumatic, normal pharynx, Neck: full range of motion, supple/symm/no masses Respiratory: chest non-tender, lungs clear, normal breath sounds, speaking full sentences Cardiovascular : regular rate, rhythm, no edema Gastrointestinal: normal bowel sounds, non tender, soft, non-distended, no guarding, no rebound Genitourinary: normal inspection, no CVA tenderness Musculoskeletal: back normal, gait/station normal, normal range of motion, non- tender Neurologic: alert, oriented x3, responsive, motor strength/tone normal, sensory intact, speech normal Skin: normal color, no rash, warm/dry, well hydrated Lymphatic: no adenopathy Microbiology Date/Time Source Procedure Growth Status 04/25/17 14:35 Blood Blood Culture - Preliminary NO GROWTH AFTER 24 HOURS Resulted 04/25/17 14:30 Blood Blood Culture - Preliminary NO GROWTH AFTER 24 HOURS Resulted 04/25/17 21:57 Sputum Induced Gram Stain Pending Resulted 04/25/17 21:57 Sputum Induced Sputum Culture - Preliminary NORMAL UPPER RESPIRATORY WINNIE AT 24 ... Resulted 04/25/17 17:00 Nasal Nares MRSA Culture - Final NO METHICILLIN RESISTANT STAPH AUREUS... Complete 04/25/17 17:00 Rectum VRE Culture - Final NO VANCOMYCIN RESISTANT ENTEROCOCCUS ... Complete Laboratory Tests Test 04/27/17 07:10 04/27/17 09:00 White Blood Count 12.3 K/UL (4.8-10.8) H Red Blood Count 3.61 M/UL (4.70-6.10) L Hemoglobin 7.9 G/DL (14.2-18.0) L Hematocrit 25.5 % (42.0-52.0) L Mean Corpuscular Volume 71 FL (80-99) L Mean Corpuscular Hemoglobin 21.9 PG (27.0-31.0) L Mean Corpuscular Hemoglobin Concent 30.9 G/DL (32.0-36.0) L Red Cell Distribution Width 17.0 % (11.6-14.8) H Platelet Count 420 K/UL (150-450) Mean Platelet Volume 5.0 FL (6.5-10.1) L Neutrophils (%) (Auto) % (45.0-75.0) Lymphocytes (%) (Auto) % (20.0-45.0) Monocytes (%) (Auto) % (1.0-10.0) Eosinophils (%) (Auto) % (0.0-3.0) Basophils (%) (Auto) % (0.0-2.0) Differential Total Cells Counted 100 Neutrophils % (Manual) 80 % (45-75) H Lymphocytes % (Manual) 13 % (20-45) L Monocytes % (Manual) 7 % (1-10) Eosinophils % (Manual) 0 % (0-3) Basophils % (Manual) 0 % (0-2) Band Neutrophils 0 % (0-8) Platelet Estimate Adequate Platelet Morphology Normal Hypochromasia 1+ Anisocytosis 1+ Microcytosis 1+ Sodium Level 139 MMOL/L (136-145) Potassium Level 3.6 MMOL/L (3.5-5.1) Chloride Level 104 MMOL/L (98-107) Carbon Dioxide Level 26 MMOL/L (21-32) Anion Gap 9 mmol/L (5-15) Blood Urea Nitrogen 8 mg/dL (7-18) Creatinine 0.6 MG/DL (0.55-1.30) Estimat Glomerular Filtration Rate > 60 mL/min (>60) Glucose Level 92 MG/DL (74-106) Calcium Level 9.3 MG/DL (8.5-10.1) Stool Occult Blood Negative (NEGATIVE) Current Medications Medications (Trade) Dose Ordered Sig/Juan Pablo Route PRN Reason Start Time Stop Time Status Last Admin Dose Admin Acetaminophen (Tylenol) 650 mg Q4H PRN ORAL Mild Pain/Temp > 100.5 04/25/17 18:45 05/25/17 18:44 Acetaminophen/ Hydrocodone Bitart (Ruth 10/325) 1 tab Q6HR PRN ORAL For Pain 04/25/17 22:15 05/02/17 22:14 04/27/17 08:30 Albuterol/ Ipratropium (Albuterol/ Ipratropium) 3 ml Q4HRT PRN HHN shortness of breath 04/25/17 18:45 04/30/17 18:44 Azithromycin (Zithromax) 500 mg Q24H ORAL 04/26/17 20:00 05/03/17 19:59 04/26/17 20:32 Ceftriaxone Sodium 1 gm/ Sodium Chloride 55 ml @ 110 mls/hr Q24H IVPB 04/26/17 20:00 05/03/17 19:59 04/26/17 20:39 Diltiazem HCl (Cardizem) 30 mg EVERY 8 HOURS ORAL 04/27/17 09:15 05/27/17 09:14 04/27/17 09:35 Heparin Sodium (Porcine) (Heparin 5000 units/ml) 5,000 units EVERY 12 HOURS SUBQ 04/25/17 21:00 05/25/17 20:59 04/26/17 20:51 Hydralazine HCl (Apresoline) 50 mg Q8HR ORAL 04/27/17 09:15 05/27/17 09:14 04/27/17 09:35 Metoprolol Tartrate (Lopressor) 12.5 mg Q12HR ORAL 04/27/17 09:15 05/27/17 09:14 04/27/17 09:35 Pantoprazole (Protonix) 40 mg Q12HR IVP 04/27/17 11:00 05/27/17 10:59 04/27/17 12:56 Ofelia Mak M.D. Apr 27, 2017 13:21
--- NOTE | 2017-04-27 13:48 | Pulmonology Progress Note ---
Assessment/Plan Problems: (1) Pneumonia (2) Pleural effusion (3) COPD (chronic obstructive pulmonary disease) (4) History of smoking (5) Urinary tract infection (6) Anemia (7) Arrhythmia Assessment/Plan respiratory treatment US of chest to assess the pleural effusion iv abx echo reviewed cardiology following check electrolytes check labs in am all notes reviewed. Subjective Interval Events: feeding better Allergies: Coded Allergies: FUROSEMIDE (Verified Allergy, Unknown, 04/25/17) Objective Last 24 Hour Vital Signs Date Time Temp Pulse Resp B/P (MAP) Pulse Ox O2 Delivery O2 Flow Rate FiO2 04/27/17 13:26 75 107/62 04/27/17 13:26 107/62 04/27/17 12:10 98.2 75 18 107/62 90 Room Air 98.2 04/27/17 09:35 79 132/74 04/27/17 09:35 79 132/74 04/27/17 09:35 132/74 04/27/17 09:29 98.2 04/27/17 08:59 79 04/27/17 08:41 84 18 Room Air 04/27/17 08:41 Room Air 04/27/17 08:36 98.2 80 18 132/74 90 Room Air 98.2 04/27/17 08:30 98.2 04/27/17 04:00 83 04/27/17 04:00 98.2 76 20 130/75 90 Room Air 98.2 04/27/17 00:42 80 04/27/17 00:00 98.2 82 16 152/72 93 Room Air 98.2 04/26/17 22:14 86 04/26/17 22:06 98.0 86 20 152/78 91 Room Air 98.0 04/26/17 20:38 98.0 04/26/17 20:00 98.0 86 20 152/78 91 Room Air 98.0 04/26/17 19:43 88 18 96 Room Air 21 04/26/17 19:37 Room Air 21 04/26/17 19:36 87 18 Room Air 21 04/26/17 19:36 82 17 93 Room Air 21 04/26/17 16:00 91 04/26/17 16:00 98.0 89 19 121/68 94 Room Air 98.0 Intake and Output 04/26/17 04/27/17 19:00 07:00 Output Total 450 ml Balance -450 ml Output Urine Total 450 ml # Voids 3 3 # Bowel Movements 1 2 Objective General Appearance: cachetic HEENT: normocephalic Neck: non-tender, normal alignment Respiratory/Chest: chest wall non-tender, lungs clear Breasts: no masses Cardiovascular/Chest: normal peripheral pulses Abdomen: normal bowel sounds, non tender, no organomegaly Extremities: normal range of motion Skin Exam: normal pigmentation Microbiology Date/Time Source Procedure Growth Status 04/25/17 14:35 Blood Blood Culture - Preliminary NO GROWTH AFTER 24 HOURS Resulted 04/25/17 14:30 Blood Blood Culture - Preliminary NO GROWTH AFTER 24 HOURS Resulted 04/25/17 21:57 Sputum Induced Gram Stain Pending Resulted 04/25/17 21:57 Sputum Induced Sputum Culture - Preliminary NORMAL UPPER RESPIRATORY RUKHSANA AT 24 ... Resulted 04/25/17 17:00 Nasal Nares MRSA Culture - Final NO METHICILLIN RESISTANT STAPH AUREUS... Complete 04/25/17 17:00 Rectum VRE Culture - Final NO VANCOMYCIN RESISTANT ENTEROCOCCUS ... Complete Laboratory Tests 04/27/17 07:10: White Blood Count 12.3H, Red Blood Count 3.61L, Hemoglobin 7.9L, Hematocrit 25.5L, Mean Corpuscular Volume 71L, Mean Corpuscular Hemoglobin 21.9L, Mean Corpuscular Hemoglobin Concent 30.9L, Red Cell Distribution Width 17.0H, Platelet Count 420, Mean Platelet Volume 5.0L, Neutrophils (%) (Auto) , Lymphocytes (%) (Auto) , Monocytes (%) (Auto) , Eosinophils (%) (Auto) , Basophils (%) (Auto) , Differential Total Cells Counted 100, Neutrophils % ( Manual) 80H, Lymphocytes % (Manual) 13L, Monocytes % (Manual) 7, Eosinophils % ( Manual) 0, Basophils % (Manual) 0, Band Neutrophils 0, Platelet Estimate Adequate, Platelet Morphology Normal, Hypochromasia 1+, Anisocytosis 1+, Microcytosis 1+, Sodium Level 139, Potassium Level 3.6, Chloride Level 104, Carbon Dioxide Level 26, Anion Gap 9, Blood Urea Nitrogen 8, Creatinine 0.6, Estimat Glomerular Filtration Rate > 60, Glucose Level 92, Calcium Level 9.3 04/27/17 09:00: Stool Occult Blood Negative Current Medications Medications (Trade) Dose Ordered Sig/Juan Pablo Route PRN Reason Start Time Stop Time Status Last Admin Dose Admin Acetaminophen (Tylenol) 650 mg Q4H PRN ORAL Mild Pain/Temp > 100.5 04/25/17 18:45 05/25/17 18:44 Acetaminophen/ Hydrocodone Bitart (Effie 10/325) 1 tab Q6HR PRN ORAL For Pain 04/25/17 22:15 05/02/17 22:14 04/27/17 08:30 Albuterol/ Ipratropium (Albuterol/ Ipratropium) 3 ml Q4HRT PRN HHN shortness of breath 04/25/17 18:45 04/30/17 18:44 Azithromycin (Zithromax) 500 mg Q24H ORAL 04/26/17 20:00 05/03/17 19:59 04/26/17 20:32 Ceftriaxone Sodium 1 gm/ Sodium Chloride 55 ml @ 110 mls/hr Q24H IVPB 04/26/17 20:00 05/03/17 19:59 04/26/17 20:39 Diltiazem HCl (Cardizem) 30 mg EVERY 8 HOURS ORAL 04/27/17 09:15 05/27/17 09:14 04/27/17 09:35 Heparin Sodium (Porcine) (Heparin 5000 units/ml) 5,000 units EVERY 12 HOURS SUBQ 04/25/17 21:00 05/25/17 20:59 04/26/17 20:51 Hydralazine HCl (Apresoline) 50 mg Q8HR ORAL 04/27/17 09:15 05/27/17 09:14 04/27/17 09:35 Metoprolol Tartrate (Lopressor) 12.5 mg Q12HR ORAL 04/27/17 09:15 05/27/17 09:14 04/27/17 09:35 Pantoprazole (Protonix) 40 mg Q12HR IVP 04/27/17 11:00 05/27/17 10:59 04/27/17 12:56 Iker Avina MD Apr 27, 2017 13:48
--- NOTE | 2017-04-27 14:32 | General Progress Note ---
Assessment/Plan Problem List: (1) HTN (hypertension) ICD Codes: I10 - Essential (primary) hypertension SNOMED: 46553928 (2) Hypoalbuminemia ICD Codes: E88.09 - Other disorders of plasma-protein metabolism, not elsewhere classified SNOMED: 675611264 (3) Anemia ICD Codes: D64.9 - Anemia, unspecified SNOMED: 991557311 Qualifiers: Qualified Codes: D64.9 - Anemia, unspecified (4) Pneumonia ICD Codes: J18.9 - Pneumonia, unspecified organism SNOMED: 258583471 Qualifiers: Qualified Codes: J18.1 - Lobar pneumonia, unspecified organism (5) COPD (chronic obstructive pulmonary disease) ICD Codes: J44.9 - Chronic obstructive pulmonary disease, unspecified SNOMED: 62595822 (6) Urinary tract infection ICD Codes: N39.0 - Urinary tract infection, site not specified SNOMED: 94931333 (7) Shortness of breath ICD Codes: R06.02 - Shortness of breath SNOMED: 898791478 Status: unchanged Assessment/Plan ot pt diet abx cbc bmp am Subjective Constitutional: Reports: weakness Allergies: Coded Allergies: FUROSEMIDE (Verified Allergy, Unknown, 04/25/17) All Systems: reviewed and negative except above Subjective calm in bed sl confused Objective Last 24 Hour Vital Signs Date Time Temp Pulse Resp B/P (MAP) Pulse Ox O2 Delivery O2 Flow Rate FiO2 04/27/17 13:26 75 107/62 04/27/17 13:26 107/62 04/27/17 12:10 98.2 75 18 107/62 90 Room Air 98.2 04/27/17 09:35 79 132/74 04/27/17 09:35 79 132/74 04/27/17 09:35 132/74 04/27/17 09:29 98.2 04/27/17 08:59 79 04/27/17 08:41 84 18 Room Air 04/27/17 08:41 Room Air 04/27/17 08:36 98.2 80 18 132/74 90 Room Air 98.2 04/27/17 08:30 98.2 04/27/17 04:00 83 04/27/17 04:00 98.2 76 20 130/75 90 Room Air 98.2 04/27/17 00:42 80 04/27/17 00:00 98.2 82 16 152/72 93 Room Air 98.2 04/26/17 22:14 86 04/26/17 22:06 98.0 86 20 152/78 91 Room Air 98.0 04/26/17 20:38 98.0 04/26/17 20:00 98.0 86 20 152/78 91 Room Air 98.0 04/26/17 19:43 88 18 96 Room Air 21 04/26/17 19:37 Room Air 21 04/26/17 19:36 87 18 Room Air 21 04/26/17 19:36 82 17 93 Room Air 21 04/26/17 16:00 91 04/26/17 16:00 98.0 89 19 121/68 94 Room Air 98.0 Intake and Output 04/26/17 04/27/17 19:00 07:00 Output Total 450 ml Balance -450 ml Output Urine Total 450 ml # Voids 3 3 # Bowel Movements 1 2 Laboratory Tests 04/27/17 07:10: White Blood Count 12.3H, Red Blood Count 3.61L, Hemoglobin 7.9L, Hematocrit 25.5L, Mean Corpuscular Volume 71L, Mean Corpuscular Hemoglobin 21.9L, Mean Corpuscular Hemoglobin Concent 30.9L, Red Cell Distribution Width 17.0H, Platelet Count 420, Mean Platelet Volume 5.0L, Neutrophils (%) (Auto) , Lymphocytes (%) (Auto) , Monocytes (%) (Auto) , Eosinophils (%) (Auto) , Basophils (%) (Auto) , Differential Total Cells Counted 100, Neutrophils % ( Manual) 80H, Lymphocytes % (Manual) 13L, Monocytes % (Manual) 7, Eosinophils % ( Manual) 0, Basophils % (Manual) 0, Band Neutrophils 0, Platelet Estimate Adequate, Platelet Morphology Normal, Hypochromasia 1+, Anisocytosis 1+, Microcytosis 1+, Sodium Level 139, Potassium Level 3.6, Chloride Level 104, Carbon Dioxide Level 26, Anion Gap 9, Blood Urea Nitrogen 8, Creatinine 0.6, Estimat Glomerular Filtration Rate > 60, Glucose Level 92, Calcium Level 9.3 04/27/17 09:00: Stool Occult Blood Negative Height (Feet): 5 Height (Inches): 10.00 Weight (Pounds): 230 General Appearance: lethargic, confused EENT: normal ENT inspection Neck: normal alignment Cardiovascular: normal peripheral pulses, normal rate, regular rhythm Respiratory/Chest: decreased breath sounds Abdomen: normal bowel sounds, non tender, soft Extremities: normal inspection Edema: no edema noted Arm (L), no edema noted Arm (R), no edema noted Leg (L), no edema noted Leg (R), no edema noted Pedal (L), no edema noted Pedal (R), no edema noted Generalized Neurologic: motor weakness Skin: normal pigmentation, warm/dry ANNA LIRA Apr 27, 2017 14:32
[2017-04-27] MEDS ORDERED: Nulytely 4L ORAL ONE (16:00)
[2017-04-27] MEDS ORDERED: Bisacodyl EC 5mg tab ORAL ONE (16:00)
[2017-04-27 19:01] VITALS: BP 110/68
[2017-04-27 20:00] VITALS: BP 129/73
[2017-04-27] MEDS: cefTRIAXone 1 GM in NS 55 ML IVPB SCH (20:12)
[2017-04-27] MEDS: Azithromycin 250mg tab ORAL SCH (20:13)
[2017-04-27] MEDS ORDERED: Fleet's Enema 133ml RECTAL ONE (23:00)
[2017-04-27] MEDS: HydrALAZINE 25mg tab ORAL SCH (23:15)
--- NOTE | 2017-04-27 23:50 | Cardiology Progress Note ---
Assessment/Plan Assessment/Plan 1. Paroxysmal atrial fibrillation, in sinus rhythm at this time, continue metoprolol, consider Xarelto for protection against stroke. 2. History of hypertension, will monitor the patient's blood pressure as he was hypotensive on admission. A 2D echocardiography reviewed, had shown hyperdynamic left ventricle with left ventricular ejection fraction above 75%. 3. Large left pleural effusion. 4. History of anemia. 5. History of psychiatric disorder. Subjective Subjective Sinus rhythm at 86. Objective Last 24 Hour Vital Signs Date Time Temp Pulse Resp B/P (MAP) Pulse Ox O2 Delivery O2 Flow Rate FiO2 04/27/17 23:15 141/81 04/27/17 21:16 86 129/73 04/27/17 21:16 86 129/73 04/27/17 20:26 Room Air 04/27/17 20:26 86 18 Room Air 04/27/17 20:00 98.6 92 20 129/73 91 Room Air 98.6 04/27/17 19:01 98.2 75 18 110/68 90 Room Air 98.2 04/27/17 15:39 98.2 04/27/17 15:15 69 04/27/17 14:40 98.2 04/27/17 13:26 75 107/62 04/27/17 13:26 107/62 04/27/17 12:10 98.2 75 18 107/62 90 Room Air 98.2 04/27/17 11:47 66 04/27/17 09:35 79 132/74 04/27/17 09:35 79 132/74 04/27/17 09:35 132/74 04/27/17 08:59 79 04/27/17 08:41 84 18 Room Air 04/27/17 08:41 Room Air 04/27/17 08:36 98.2 80 18 132/74 90 Room Air 98.2 04/27/17 08:30 98.2 04/27/17 04:00 83 04/27/17 04:00 98.2 76 20 130/75 90 Room Air 98.2 04/27/17 00:42 80 04/27/17 00:00 98.2 82 16 152/72 93 Room Air 98.2 Intake and Output 04/26/17 04/27/17 19:00 07:00 Output Total 450 ml Balance -450 ml Output Urine Total 450 ml # Voids 3 3 # Bowel Movements 1 2 2D Echo: EF 60%,Mod LVH,Grade I LVDD,mild MR,Pleural eff.,RVSP 41, Small Pericar Eff Laboratory Tests Test 04/27/17 07:10 04/27/17 09:00 White Blood Count 12.3 K/UL (4.8-10.8) H Red Blood Count 3.61 M/UL (4.70-6.10) L Hemoglobin 7.9 G/DL (14.2-18.0) L Hematocrit 25.5 % (42.0-52.0) L Mean Corpuscular Volume 71 FL (80-99) L Mean Corpuscular Hemoglobin 21.9 PG (27.0-31.0) L Mean Corpuscular Hemoglobin Concent 30.9 G/DL (32.0-36.0) L Red Cell Distribution Width 17.0 % (11.6-14.8) H Platelet Count 420 K/UL (150-450) Mean Platelet Volume 5.0 FL (6.5-10.1) L Neutrophils (%) (Auto) % (45.0-75.0) Lymphocytes (%) (Auto) % (20.0-45.0) Monocytes (%) (Auto) % (1.0-10.0) Eosinophils (%) (Auto) % (0.0-3.0) Basophils (%) (Auto) % (0.0-2.0) Differential Total Cells Counted 100 Neutrophils % (Manual) 80 % (45-75) H Lymphocytes % (Manual) 13 % (20-45) L Monocytes % (Manual) 7 % (1-10) Eosinophils % (Manual) 0 % (0-3) Basophils % (Manual) 0 % (0-2) Band Neutrophils 0 % (0-8) Platelet Estimate Adequate Platelet Morphology Normal Hypochromasia 1+ Anisocytosis 1+ Microcytosis 1+ Sodium Level 139 MMOL/L (136-145) Potassium Level 3.6 MMOL/L (3.5-5.1) Chloride Level 104 MMOL/L (98-107) Carbon Dioxide Level 26 MMOL/L (21-32) Anion Gap 9 mmol/L (5-15) Blood Urea Nitrogen 8 mg/dL (7-18) Creatinine 0.6 MG/DL (0.55-1.30) Estimat Glomerular Filtration Rate > 60 mL/min (>60) Glucose Level 92 MG/DL (74-106) Calcium Level 9.3 MG/DL (8.5-10.1) Stool Occult Blood Negative (NEGATIVE) Microbiology Date/Time Source Procedure Growth Status 04/25/17 14:35 Blood Blood Culture - Preliminary NO GROWTH AFTER 24 HOURS Resulted 04/25/17 14:30 Blood Blood Culture - Preliminary NO GROWTH AFTER 24 HOURS Resulted 04/25/17 21:57 Sputum Induced Gram Stain - Final Resulted 04/25/17 21:57 Sputum Induced Sputum Culture - Preliminary NORMAL UPPER RESPIRATORY RUKHSANA AT 24 ... Resulted 04/25/17 17:00 Nasal Nares MRSA Culture - Final NO METHICILLIN RESISTANT STAPH AUREUS... Complete 04/25/17 17:00 Rectum VRE Culture - Final NO VANCOMYCIN RESISTANT ENTEROCOCCUS ... Complete Objective HEENT: Atraumatic and normocephalic. Anicteric. Pupils are equal, round, and reactive to light and accommodation. Extraocular muscles intact. There is poor dentition. NECK: JVP less than 5 centimeter. No carotid bruit. Carotid upstrokes 2+ bilaterally. CARDIOVASCULAR: Normal S1 and S2. Regular rate and rhythm. No murmurs, gallops, or rubs. PMI is at fourth intercostal space in the midclavicular line. LUNGS: Diminished breath sounds in both bases. ABDOMEN: Soft, nontender, and nondistended. No hepatosplenomegaly. Positive bowel sounds. EXTREMITIES: No evidence of edema, clubbing, or cyanosis. ELISABETH CONTE Apr 27, 2017 23:50
[2017-04-28] VITALS (9 sets, daily range): BP systolic 119–168; BP diastolic 65–86
--- NOTE | 2017-04-28 01:00 | Consultation ---
DATE OF CONSULTATION: 04/26/2017 CARDIOLOGY CONSULTATION CONSULTING PHYSICIAN: Juaquin Carpenter M.D. REFERRING PHYSICIAN: Ameya Fulton D.O. REASON FOR CONSULTATION: Management of shortness of breath. HISTORY OF PRESENT ILLNESS: The patient is a very unfortunate 62-year-old gentleman who is a resident of a nursing facility, who was brought in for evaluation of low hemoglobin and shortness of breath. The patient has underlying psychiatric disorder and is not capable of providing any history. The patient at time of arrival to the hospital had a blood pressure of 102/67 and heart rate of 73. His chest x-ray showed cardiomegaly and pulmonary edema. A 12-lead electrocardiogram done in the emergency department was significant for sinus rhythm with right bundle-branch block and prolongation of QT interval. The patient admitted to the hospital for management of shortness of breath and low hemoglobin level. PAST MEDICAL HISTORY: History of hypertension, history of paroxysmal atrial fibrillation. 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 PAST SURGICAL HISTORY: None. MEDICATIONS: List of medications in the nursing facility including Abilify mg p.o. twice daily, aspirin 81 mg p.o. daily, Dulcolax 5 mg p.o. daily, Cardizem 30 mg p.o. q.i.d., ferrous sulfate 325 mg daily, hydralazine 50 mg q.8 h., [place] 10/325 mg one tablet q.6 h. p.r.n. pain, Ativan 1 mg p.o. q.8 h., metoprolol 12.5 mg twice daily, Zyprexa 5 mg p.o. daily, Xarelto 20 mg p.o. daily, and Desyrel 50 mg p.o. at bedtime. ALLERGIES: Furosemide. SOCIAL HISTORY: Denies any history of tobacco, alcohol, or illicit drug use. FAMILY HISTORY: No premature coronary artery disease in first-degree relatives. REVIEW OF SYSTEMS: HEENT: Denies any headache, diplopia, or blurred vision. CONSTITUTIONAL: Denies any fever, chills, night sweats, or weight loss. CARDIOVASCULAR: Complains of shortness of breath, but no chest pain. No PND, orthopnea, leg swelling, syncope, or palpitation. PULMONARY: Denies any cough, hemoptysis, or wheezing. GASTROINTESTINAL: Denies any nausea, vomiting, diarrhea, constipation, abdominal pain, or GI bleed. GENITOURINARY: Denies any hematuria, dysuria, or incontinence. NEUROLOGY: Denies any motor dysfunction, sensory deficit, or altered speech. PHYSICAL EXAMINATION: VITAL SIGNS: Blood pressure at time of arrival to the hospital was 102/67, respirations 19, pulse of 73, temperature 97.9 degrees Fahrenheit, and O2 saturation 97% on nasal cannula. GENERAL: The patient is a very unfortunate 62-year-old gentleman, in no apparent respiratory distress. Awake and answers to my questions appropriately. HEENT: Atraumatic and normocephalic. Anicteric. Pupils are equal, round, and reactive to light and accommodation. Extraocular muscles intact. There is poor dentition. NECK: JVP less than 5 centimeter. No carotid bruit. Carotid upstrokes 2+ bilaterally. CARDIOVASCULAR: Normal S1 and S2. Regular rate and rhythm. No murmurs, gallops, or rubs. PMI is at fourth intercostal space in the midclavicular line. LUNGS: Diminished breath sounds in both bases. ABDOMEN: Soft, nontender, and nondistended. No hepatosplenomegaly. Positive bowel sounds. EXTREMITIES: No evidence of edema, clubbing, or cyanosis. LABORATORY AND DIAGNOSTIC DATA: WBC is 12.7, hemoglobin 8.1, hematocrit 26.7, and platelet count is 514. Sodium is 135, potassium is 3.9, chloride 102, bicarbonate 29, BUN of 12, creatinine 0.6, and glucose is 115. Calcium is 10.0. Troponin I is 0.0 and proBNP was 454. INR is 1.4. Chest x-ray showed cardiomegaly with left-sided pleural effusion, bibasilar infiltrates or edema. ASSESSMENT AND PLAN: The patient is a very unfortunate 62-year-old gentleman, who is seen in Cardiology consultation at request of Dr. Fulton. 1. Paroxysmal atrial fibrillation. The patient's rhythm is currently sinus with frequent premature atrial complexes at times. There is short runs of supraventricular tachycardia, which could be atrial flutter versus atrial tachycardia and we would like to switch to higher dose of metoprolol 50 mg twice daily and discontinuing Cardizem. There is no need for two different AV phill agents. The patient will also benefit from continuation of Xarelto for protection against stroke. I would also make sure that the patient is not hypovolemic, clinically appears to be dry. I would avoid diuretics. 2. History of hypertension. At the time of arrival to the hospital, the patient was borderline hypotensive. I would like to taper down hydralazine and monitor the patient's blood pressure throughout the hospitalization. A 2D echocardiography reviewed, had shown hyperdynamic left ventricle with left ventricular ejection fraction above 75%. 3. Large left pleural effusion. Pulmonary consideration for left thoracentesis as the patient is symptomatic. 4. History of anemia. 5. History of psychiatric disorder. 6. Elevated beta-natriuretic peptide, in this patient is most likely due to short runs of Supraventricular tachycardia/atrial flutter that is evident on the rhythm strip. I would like to thank, Dr. Fulton, for the courtesy of this consultation. Juaquin Carpenter M.D. DR: SAROJ JOB#: [id number] CC:
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
[2017-04-28] MEDS: HydrALAZINE 25mg tab ORAL SCH ×3 (06:31→21:42)
--- NOTE | 2017-04-28 06:32 | Anethesia Preoperative Eval ---
Anesthesia Pre-op PMH/ROS General Date of Evaluation: Apr 28, 2017 Time of Evaluation: 06:29 Anesthesiologist: bev ASA Score: ASA 3 Mallampati Score Class I : Soft palate, uvula, fauces, pillars visible Class II: Soft palate, uvula, fauces visible Class III: Soft palate, base of uvula visible Class IV: Only hard plate visible Mallampati Classification: Class II Surgeon: huey Diagnosis: anemia, gi bleed Surgical Procedure: egd/colonoscopy Anesthesia History: none Social History: smoking Family History: no anesthesia problems Allergies: Coded Allergies: FUROSEMIDE (Verified Allergy, Unknown, 04/25/17) Medications: see eMAR Past Medical History Cardiovascular: Reports: HTN, arrhythmia Pulmonary: Reports: COPD, other - pneumonia, pleural effusion Gastrointestinal/Genitourinary: Reports: other - uti Other: obesity Anesthesia Pre-op Phys. Exam Physician Exam Last Vital Signs Date Time Temp Pulse Resp B/P (MAP) Pulse Ox O2 Delivery O2 Flow Rate FiO2 04/28/17 04:00 95.0 81 20 143/78 91 Room Air 95.0 04/26/17 19:43 21 04/25/17 21:42 2.0 Constitutional: NAD Neurologic: CN 2-12 intact Cardiovascular: RRR Respiratory: CTA Gastrointestinal: S/NT/ND Airway Exam Mallampati Score: Class II MO: limited Neck: short TMD: 2fb ROM: limited Teeth: missing Anesthesia Pre-op A/P Labs Hematology Test 04/27/17 07:10 White Blood Count 12.3 K/UL (4.8-10.8) H Red Blood Count 3.61 M/UL (4.70-6.10) L Hemoglobin 7.9 G/DL (14.2-18.0) L Hematocrit 25.5 % (42.0-52.0) L Mean Corpuscular Volume 71 FL (80-99) L Mean Corpuscular Hemoglobin 21.9 PG (27.0-31.0) L Mean Corpuscular Hemoglobin Concent 30.9 G/DL (32.0-36.0) L Red Cell Distribution Width 17.0 % (11.6-14.8) H Platelet Count 420 K/UL (150-450) Mean Platelet Volume 5.0 FL (6.5-10.1) L Neutrophils (%) (Auto) % (45.0-75.0) Lymphocytes (%) (Auto) % (20.0-45.0) Monocytes (%) (Auto) % (1.0-10.0) Eosinophils (%) (Auto) % (0.0-3.0) Basophils (%) (Auto) % (0.0-2.0) Differential Total Cells Counted 100 Neutrophils % (Manual) 80 % (45-75) H Lymphocytes % (Manual) 13 % (20-45) L Monocytes % (Manual) 7 % (1-10) Eosinophils % (Manual) 0 % (0-3) Basophils % (Manual) 0 % (0-2) Band Neutrophils 0 % (0-8) Platelet Estimate Adequate Platelet Morphology Normal Hypochromasia 1+ Anisocytosis 1+ Microcytosis 1+ Chemistry Test 04/27/17 07:10 Sodium Level 139 MMOL/L (136-145) Potassium Level 3.6 MMOL/L (3.5-5.1) Chloride Level 104 MMOL/L (98-107) Carbon Dioxide Level 26 MMOL/L (21-32) Anion Gap 9 mmol/L (5-15) Blood Urea Nitrogen 8 mg/dL (7-18) Creatinine 0.6 MG/DL (0.55-1.30) Estimat Glomerular Filtration Rate > 60 mL/min (>60) Glucose Level 92 MG/DL (74-106) Calcium Level 9.3 MG/DL (8.5-10.1) Risk Assessment & Plan Assessment: asa3 Plan: mac Status Change Before Surgery: No Pre-Antibiotics Drug: YUMI Angelo Apr 28, 2017 06:31
[2017-04-28] MEDS ORDERED: fentaNYL 100 mcg/2 mL IV PRN (06:45)
[2017-04-28] MEDS ORDERED: Midazolam 2mg/2ml Inj IVP PRN (06:45)
[2017-04-28] MEDS ORDERED: DiphenhydrAMINE 50mg/ml Inj IVP PRN (06:45)
[2017-04-28] MEDS ORDERED: Atropine Inj 1mg/10ml Syr IV PRN (06:45)
[2017-04-28] MEDS: Heparin 5000 units/ml inj SUBQ SCH ×2 (07:20→20:56)
[2017-04-28] MEDS: Metoprolol Tartrate 50mg tab ORAL SCH ×2 (07:20→20:54)
[2017-04-28] MEDS: Sertraline 50mg tab ORAL SCH (07:20)
[2017-04-28] MEDS: Pantoprazole Inj IVP SCH ×2 (08:37→20:52)
[2017-04-28] MEDS ORDERED: Propofol 200mg/20ml IV ONE (10:00)
[2017-04-28] MEDS ORDERED: Lidocaine 1% MPF 10mg/ml 5ml ONE (10:00)
[2017-04-28 10:05] LABS: BASOPHILS % (AUTO) 0.6 % (0.0-2.0); EOSINOPHILS % (AUTO) 0.1 % (0.0-3.0); HEMATOCRIT 26.5 % (42.0-52.0); HEMOGLOBIN 8.1 G/DL (14.2-18.0); LYMPHOCYTES % (AUTO) 13.5 % (20.0-45.0); MEAN CORPUSCULAR VOLUME 71 FL (80-99); MONOCYTES % (AUTO) 10.1 % (1.0-10.0); NEUTROPHILS % (AUTO) 75.7 % (45.0-75.0); PLATELET COUNT 480 K/UL (150-450); RED BLOOD COUNT 3.73 M/UL (4.70-6.10); WHITE BLOOD COUNT 15.4 K/UL (4.8-10.8)
--- NOTE | 2017-04-28 10:15 | Diagnostic Imaging Report ---
Indication: Shortness of breath Technique: One view of the chest Comparison: 04/25/2017 Findings: Left midlung and bilateral basilar hazy opacities appear slightly improved, although disease persists. The heart remains enlarged. There is mild interstitial congestion still present. Impression: Persistent interstitial congestion. Suggestion of slight improvement of bilateral basilar hazy opacities, may indicate decreasing airspace disease or decreasing pleural fluid Persistent cardiomegaly
[2017-04-28 10:21] LABS: ANION GAP 8 mmol/L (5-15); BLOOD UREA NITROGEN 8 mg/dL (7-18); CALCIUM 9.3 MG/DL (8.5-10.1); CARBON DIOXIDE 29 MMOL/L (21-32); CHLORIDE 102 MMOL/L (98-107); CREATININE 0.7 MG/DL (0.55-1.30); POTASSIUM 3.5 MMOL/L (3.5-5.1); SODIUM 139 MMOL/L (136-145)
[2017-04-28 10:24] LABS: INR 1.4 (0.9-1.1)
--- NOTE | 2017-04-28 10:50 | Diagnostic Imaging Report ---
Indication: Shortness of breath, abnormal chest radiograph Technique: Grayscale imaging of the bilateral hemithoraces Comparison: Reference made to chest radiograph 04/25/2017 Findings: Bilateral moderate-sized pleural effusions are demonstrated, approximately equal in size. Atelectatic right lower lobe is also noted. Impression: Positive for bilateral pleural effusions
--- NOTE | 2017-04-28 11:17 | General Progress Note ---
Assessment/Plan Problem List: (1) GI bleed ICD Codes: K92.2 - Gastrointestinal hemorrhage, unspecified SNOMED: 30350132 (2) COPD (chronic obstructive pulmonary disease) ICD Codes: J44.9 - Chronic obstructive pulmonary disease, unspecified SNOMED: 67314766 (3) Anemia ICD Codes: D64.9 - Anemia, unspecified SNOMED: 092902089 Qualifiers: Qualified Codes: D64.9 - Anemia, unspecified (4) HTN (hypertension) ICD Codes: I10 - Essential (primary) hypertension SNOMED: 87745922 Assessment/Plan plan EGD and colonoscopy today Subjective ROS Limited/Unobtainable: Yes Allergies: Coded Allergies: FUROSEMIDE (Verified Allergy, Unknown, 04/25/17) Objective Last 24 Hour Vital Signs Date Time Temp Pulse Resp B/P (MAP) Pulse Ox O2 Delivery O2 Flow Rate FiO2 04/28/17 09:18 80 18 Room Air 04/28/17 09:18 Room Air 04/28/17 08:00 96 04/28/17 08:00 97.7 87 18 129/65 91 Room Air 97.7 04/28/17 07:20 91 143/78 04/28/17 06:31 143/78 04/28/17 04:00 95.0 81 20 143/78 91 Room Air 95.0 04/28/17 04:00 91 04/28/17 00:00 97.5 82 20 138/78 90 Room Air 97.5 04/28/17 00:00 95 04/27/17 23:15 141/81 04/27/17 21:16 86 129/73 04/27/17 21:16 86 129/73 04/27/17 20:26 Room Air 04/27/17 20:26 86 18 Room Air 04/27/17 20:00 95 04/27/17 20:00 98.6 92 20 129/73 91 Room Air 98.6 04/27/17 19:01 98.2 75 18 110/68 90 Room Air 98.2 04/27/17 15:39 98.2 04/27/17 15:15 69 04/27/17 14:40 98.2 04/27/17 13:26 75 107/62 04/27/17 13:26 107/62 04/27/17 12:10 98.2 75 18 107/62 90 Room Air 98.2 04/27/17 11:47 66 Intake and Output 04/27/17 04/28/17 19:00 07:00 Intake Total 600 ml 160 ml Output Total 300 ml Balance 300 ml 160 ml Intake Oral 600 ml 50 ml IV Total 110 ml Output Urine Total 300 ml # Voids 1 # Bowel Movements 1 4 Laboratory Tests 04/28/17 09:15: White Blood Count 15.4H, Red Blood Count 3.73L, Hemoglobin 8.1L, Hematocrit 26.5L, Mean Corpuscular Volume 71L, Mean Corpuscular Hemoglobin 21.7L, Mean Corpuscular Hemoglobin Concent 30.4L, Red Cell Distribution Width 17.0H, Platelet Count 480H, Mean Platelet Volume 5.1L, Neutrophils (%) (Auto) 75.7H, Lymphocytes (%) (Auto) 13.5L, Monocytes (%) (Auto) 10.1H, Eosinophils (%) (Auto ) 0.1, Basophils (%) (Auto) 0.6, Prothrombin Time 15.1H, Prothromb Time International Ratio 1.4H, Activated Partial Thromboplast Time 40H, Sodium Level 139, Potassium Level 3.5, Chloride Level 102, Carbon Dioxide Level 29, Anion Gap 8, Blood Urea Nitrogen 8, Creatinine 0.7, Estimat Glomerular Filtration Rate > 60, Glucose Level 88, Calcium Level 9.3 Height (Feet): 5 Height (Inches): 10.00 Weight (Pounds): 229 General Appearance: no apparent distress EENT: normal ENT inspection Neck: supple Cardiovascular: normal rate Respiratory/Chest: decreased breath sounds Abdomen: normal bowel sounds, non tender, soft Extremities: non-tender JUANITA MANCUSO Apr 28, 2017 11:17
[2017-04-28] MEDS ORDERED: NS 500ML IV ONE (11:20)
--- NOTE | 2017-04-28 11:23 | Pre-Procedure Note/Attestation ---
Pre-Procedure Note/Attestation Complete Prior to Procedure Planned Procedure: not applicable Procedure Narrative: esophagogastroduodenoscopy and colonoscopy Indications for Procedure Pre-Operative Diagnosis: GIB Attestation I attest that I discussed the nature of the procedure; its benefits; risks and complications; and alternatives (and the risks and benefits of such alternatives ), prior to the procedure, with the patient (or the patient's legal labor relations representative). I attest that, if there was a reasonable possibility of needing a blood transfusion, the patient (or the patient's legal labor relations representative) was given the [facility] standardized written summary, pursuant to the Christiano Ghazala Blood Safety Act ([place] Health and Safety Code # 1645, as amended). I attest that I re-evaluated the patient just prior to the surgery and that there has been no change in the patient's H&P, except as documented below: JUANITA MANCUSO Apr 28, 2017 11:23
--- NOTE | 2017-04-28 11:58 | Endoscopy Procedure Note ---
Endoscopy Procedure Note General Indication for Procedure: gib Procedures Performed: flexible sigmoidoscopy, EGD Operative Findings/Diagnosis: gastritis Specimen: yes Pt Tolerated Procedure Well: Yes Estimated Blood Loss: none Anesthesia Anesthesiologist: ken Anesthesia: MAC Inserted Devices Implant(s) used?: No Quality Quality of Bowel Preparation: Poor Did scope reach the cecum?: No Why scope didn't reach cecum: Bowel preparation poor Was there any complications?: No GI Core Measures 50 yrs or older w/o bx or poly: Not Applicable 10yrs. F/U not recommended: Not Applicable JUANITA MANCUSO Apr 28, 2017 11:58
--- NOTE | 2017-04-28 12:26 | Infectious Diseases Prog Note ---
Assessment/Plan Assessment/Plan Assessment: SOB- PNA vs pulmonary edema -CXR 04/28: Persistent interstitial congestion. Suggestion of slight improvement of bilateral basilar hazy opacities, may indicate decreasing airspace disease or decreasing pleural fluid -CXR: Left-sided pleural effusion. Bibasilar infiltrates or edema. Cardiomegaly -sp cx normal winnie to date Leukocytosis, increasing -afebrile -u/a neg -Bcx NTD B/L moderate pleural effusion- ?parapneumonic vs fluid related -Chest US: Bilateral moderate-sized pleural effusions are demonstrated, approximately equal in size. Atelectatic right lower lobe is also noted. Anemia- -occult blood neg HTN Afib Plan: -Continue Ceftriaxone and Azithromycin abx d #4/5-7 for possible PNA -04/26 SP ZOsyn #2 -04/25 SP LEvaquin x1 -Repeat 2 sets of Bcx -CMP, if elevated LFTs, obtain Abd US -?Thoracentesis -low thresdhold for CT abd/p w/ if worsneing leukocyotis, fever and/or abd pain -f/u cx -Monitor CBC/CMP, temperatures Thank you for this consultation. Will continue to follow along with you. Discussed with RN. Subjective Allergies: Coded Allergies: FUROSEMIDE (Verified Allergy, Unknown, 04/25/17) Subjective afebrile leukocytosis increasing sp cx NF to date Bcx NTD Colonoscopy unable to be done due to poor prep Objective Vital Signs Last 24 Hour Vital Signs Date Time Temp Pulse Resp B/P (MAP) Pulse Ox O2 Delivery O2 Flow Rate FiO2 04/28/17 12:10 90 20 125/75 95 Nasal Cannula 3.0 04/28/17 12:05 91 22 128/77 94 Nasal Cannula 3.0 04/28/17 12:00 98.8 94 20 119/69 95 Nasal Cannula 3.0 98.8 04/28/17 09:18 80 18 Room Air 04/28/17 09:18 Room Air 04/28/17 08:00 96 04/28/17 08:00 97.7 87 18 129/65 91 Room Air 97.7 04/28/17 07:20 91 143/78 04/28/17 06:31 143/78 04/28/17 04:00 95.0 81 20 143/78 91 Room Air 95.0 04/28/17 04:00 91 04/28/17 00:00 97.5 82 20 138/78 90 Room Air 97.5 04/28/17 00:00 95 04/27/17 23:15 141/81 04/27/17 21:16 86 129/73 04/27/17 21:16 86 129/73 04/27/17 20:26 Room Air 04/27/17 20:26 86 18 Room Air 04/27/17 20:00 95 04/27/17 20:00 98.6 92 20 129/73 91 Room Air 98.6 04/27/17 19:01 98.2 75 18 110/68 90 Room Air 98.2 04/27/17 15:39 98.2 04/27/17 15:15 69 04/27/17 14:40 98.2 04/27/17 13:26 75 107/62 04/27/17 13:26 107/62 Height (Feet): 5 Height (Inches): 10.00 Weight (Pounds): 229 Objective General Appearance: no apparent distress, alert,non-toxic HEENT: normocephalic, atraumatic, normal pharynx, Neck: full range of motion, supple/symm/no masses Respiratory: chest non-tender, lungs clear, normal breath sounds, speaking full sentences Cardiovascular : regular rate, rhythm, no edema Gastrointestinal: normal bowel sounds, non tender, soft, non-distended, no guarding, no rebound Genitourinary: normal inspection, no CVA tenderness Musculoskeletal: back normal, gait/station normal, normal range of motion, non- tender Neurologic: alert, oriented x3, responsive, motor strength/tone normal, sensory intact, speech normal Skin: normal color, no rash, warm/dry, well hydrated Lymphatic: no adenopathy Microbiology Date/Time Source Procedure Growth Status 04/25/17 14:35 Blood Blood Culture - Preliminary NO GROWTH AFTER 48 HOURS Resulted 04/25/17 14:30 Blood Blood Culture - Preliminary NO GROWTH AFTER 48 HOURS Resulted 04/25/17 21:57 Sputum Induced Gram Stain - Final Resulted 04/25/17 21:57 Sputum Culture - Preliminary YEAST Usual Respiratory Winnie Resulted 04/25/17 17:00 Nasal Nares MRSA Culture - Final NO METHICILLIN RESISTANT STAPH AUREUS... Complete 04/25/17 17:00 Rectum VRE Culture - Final NO VANCOMYCIN RESISTANT ENTEROCOCCUS ... Complete Laboratory Tests Test 04/28/17 09:15 White Blood Count 15.4 K/UL (4.8-10.8) H Red Blood Count 3.73 M/UL (4.70-6.10) L Hemoglobin 8.1 G/DL (14.2-18.0) L Hematocrit 26.5 % (42.0-52.0) L Mean Corpuscular Volume 71 FL (80-99) L Mean Corpuscular Hemoglobin 21.7 PG (27.0-31.0) L Mean Corpuscular Hemoglobin Concent 30.4 G/DL (32.0-36.0) L Red Cell Distribution Width 17.0 % (11.6-14.8) H Platelet Count 480 K/UL (150-450) H Mean Platelet Volume 5.1 FL (6.5-10.1) L Neutrophils (%) (Auto) 75.7 % (45.0-75.0) H Lymphocytes (%) (Auto) 13.5 % (20.0-45.0) L Monocytes (%) (Auto) 10.1 % (1.0-10.0) H Eosinophils (%) (Auto) 0.1 % (0.0-3.0) Basophils (%) (Auto) 0.6 % (0.0-2.0) Prothrombin Time 15.1 SEC (9.30-11.50) H Prothromb Time International Ratio 1.4 (0.9-1.1) H Activated Partial Thromboplast Time 40 SEC (23-33) H Sodium Level 139 MMOL/L (136-145) Potassium Level 3.5 MMOL/L (3.5-5.1) Chloride Level 102 MMOL/L (98-107) Carbon Dioxide Level 29 MMOL/L (21-32) Anion Gap 8 mmol/L (5-15) Blood Urea Nitrogen 8 mg/dL (7-18) Creatinine 0.7 MG/DL (0.55-1.30) Estimat Glomerular Filtration Rate > 60 mL/min (>60) Glucose Level 88 MG/DL (74-106) Calcium Level 9.3 MG/DL (8.5-10.1) Current Medications Medications (Trade) Dose Ordered Sig/Juan Pablo Route PRN Reason Start Time Stop Time Status Last Admin Dose Admin Acetaminophen (Tylenol) 650 mg Q4H PRN ORAL Mild Pain/Temp > 100.5 04/25/17 18:45 05/25/17 18:44 Acetaminophen/ Hydrocodone Bitart ([place] 10/325) 1 tab Q6HR PRN ORAL For Pain 04/25/17 22:15 05/02/17 22:14 04/27/17 14:40 Al Hydroxide/Mg Hydroxide (Mylanta) 15 ml Q1H PRN ORAL gi upset 04/28/17 06:45 04/28/17 13:00 Albuterol/ Ipratropium (Albuterol/ Ipratropium) 3 ml Q4HRT PRN HHN shortness of breath 04/25/17 18:45 04/30/17 18:44 Atropine Sulfate (Atropine) 0.5 mg Q5M PRN IV HR less than 45 BPM 04/28/17 06:45 04/28/17 13:00 Azithromycin (Zithromax) 500 mg Q24H ORAL 04/26/17 20:00 05/03/17 19:59 04/27/17 20:13 Ceftriaxone Sodium 1 gm/ Sodium Chloride 55 ml @ 110 mls/hr Q24H IVPB 04/26/17 20:00 05/03/17 19:59 04/27/17 20:12 Diphenhydramine HCl (Benadryl) 25 mg Q15M PRN IVP Itching 04/28/17 06:45 04/28/17 13:00 Fentanyl Citrate (Sublimaze 100 mcg/2 mL) 25 mcg Q10M PRN IV Moderate Pain (Pain Scale 4-6) 04/28/17 06:45 04/28/17 13:00 Heparin Sodium (Porcine) (Heparin 5000 units/ml) 5,000 units EVERY 12 HOURS SUBQ 04/25/17 21:00 05/25/17 20:59 04/26/17 20:51 Hydralazine HCl (Apresoline) 5 mg Q30M PRN IV SBP>160 /DBP>90 04/28/17 06:45 04/28/17 13:00 Hydralazine HCl (Apresoline) 25 mg Q8HR ORAL 04/27/17 22:30 05/27/17 22:29 04/28/17 06:31 Metoprolol Tartrate (Lopressor) 50 mg Q12HR ORAL 04/28/17 09:00 05/28/17 08:59 Midazolam HCl (Versed 2mg/2ml vial) 1 mg Q15M PRN IVP For Anxiety 04/28/17 06:45 04/28/17 13:00 Ondansetron HCl (Zofran) 4 mg Q1H PRN IVP Nausea & Vomiting 04/28/17 06:45 04/28/17 13:00 Pantoprazole (Protonix) 40 mg Q12HR IVP 04/27/17 11:00 05/27/17 10:59 04/28/17 08:37 Sertraline HCl (Zoloft) 25 mg DAILY ORAL 04/28/17 09:00 05/28/17 08:59 Ofelia Mak M.D. Apr 28, 2017 12:26
--- NOTE | 2017-04-28 13:13 | Immediate Post-Op Evaluation ---
Immediate Post-Op Evalulation Immediate Post-Op Evalulation Procedure: egd/colonoscopy Date of Evaluation: Apr 28, 2017 Time of Evaluation: 12:09 IV Fluids: 150ml 0.9ns Blood Products: none Estimated Blood Loss: negligble Blood Pressure Systolic: 119 Blood Pressure Diastolic: 69 Pulse Rate: 94 Respiratory Rate: 18 O2 Sat by Pulse Oximetry: 99 Temperature (Fahrenheit): 98.8 Pain Score (1-10): 0 Nausea: No Vomiting: No Complications none Patient Status: awake, reacts, patent Hydration Status: adequate Drug: YUMI Angelo Apr 28, 2017 13:13
--- NOTE | 2017-04-28 13:16 | 48 Hour Post Anesthesia Eval ---
Post Anesthesia Evaluation Procedure: egd/colonoscopy Date of Evaluation: Apr 28, 2017 Time of Evaluation: 12:11 Blood Pressure Systolic: 128 0: 77 Pulse Rate: 88 Respiratory Rate: 18 Temperature (Fahrenheit): 98.8 O2 Sat by Pulse Oximetry: 99 Airway: patent Nausea: No Vomiting: No Pain Intensity: 0 Hydration Status: adequate Cardiopulmonary Status: stable Mental Status/LOC: patient returned to baseline Post-Anesthesia Complications: none Follow-up care needed: N/A YUMI BURKS Apr 28, 2017 13:16
--- NOTE | 2017-04-28 13:34 | Pulmonology Progress Note ---
Assessment/Plan Problems: (1) Pneumonia (2) Pleural effusion (3) COPD (chronic obstructive pulmonary disease) (4) Arrhythmia (5) Anemia (6) Urinary tract infection (7) History of smoking Assessment/Plan svt controlled sinus tach with PAC's, cardiology following respiratory treatment US of chest to assess the pleural effusion, reviewed, equal size, iv abx echo reviewed check electrolytes check labs in am all notes reviewed. transfer to med/surg if ok with cardiology Subjective ROS Limited/Unobtainable: No Constitutional: Reports: no symptoms HEENT: Repors: no symptoms Respiratory: Reports: no symptoms Allergies: Coded Allergies: FUROSEMIDE (Verified Allergy, Unknown, 04/25/17) Objective Last 24 Hour Vital Signs Date Time Temp Pulse Resp B/P (MAP) Pulse Ox O2 Delivery O2 Flow Rate FiO2 04/28/17 13:16 209.8 88 18 99 04/28/17 13:13 209.8 94 18 99 04/28/17 12:30 98.6 90 19 129/74 94 Nasal Cannula 3.0 98.6 04/28/17 12:10 90 20 125/75 95 Nasal Cannula 3.0 04/28/17 12:05 91 22 128/77 94 Nasal Cannula 3.0 04/28/17 12:00 98.8 94 20 119/69 95 Nasal Cannula 3.0 98.8 04/28/17 09:18 80 18 Room Air 04/28/17 09:18 Room Air 04/28/17 08:00 96 04/28/17 08:00 97.7 87 18 129/65 91 Room Air 97.7 04/28/17 07:20 91 143/78 04/28/17 06:31 143/78 04/28/17 04:00 95.0 81 20 143/78 91 Room Air 95.0 04/28/17 04:00 91 04/28/17 00:00 97.5 82 20 138/78 90 Room Air 97.5 04/28/17 00:00 95 04/27/17 23:15 141/81 04/27/17 21:16 86 129/73 04/27/17 21:16 86 129/73 04/27/17 20:26 Room Air 04/27/17 20:26 86 18 Room Air 04/27/17 20:00 95 04/27/17 20:00 98.6 92 20 129/73 91 Room Air 98.6 04/27/17 19:01 98.2 75 18 110/68 90 Room Air 98.2 04/27/17 15:39 98.2 04/27/17 15:15 69 04/27/17 14:40 98.2 Intake and Output 04/27/17 04/28/17 19:00 07:00 Intake Total 600 ml 160 ml Output Total 300 ml Balance 300 ml 160 ml Intake Oral 600 ml 50 ml IV Total 110 ml Output Urine Total 300 ml # Voids 1 # Bowel Movements 1 4 Objective General Appearance: cachetic HEENT: normocephalic Neck: non-tender, normal alignment Respiratory/Chest: chest wall non-tender, lungs clear Breasts: no masses Cardiovascular/Chest: normal peripheral pulses Abdomen: normal bowel sounds, non tender, no organomegaly Extremities: normal range of motion Skin Exam: normal pigmentation Microbiology Date/Time Source Procedure Growth Status 04/25/17 14:35 Blood Blood Culture - Preliminary NO GROWTH AFTER 48 HOURS Resulted 04/25/17 14:30 Blood Blood Culture - Preliminary NO GROWTH AFTER 48 HOURS Resulted 04/25/17 21:57 Sputum Induced Gram Stain - Final Resulted 04/25/17 21:57 Sputum Culture - Preliminary YEAST Usual Respiratory [place] Resulted 04/25/17 17:00 Nasal Nares MRSA Culture - Final NO METHICILLIN RESISTANT STAPH AUREUS... Complete 04/25/17 17:00 Rectum VRE Culture - Final NO VANCOMYCIN RESISTANT ENTEROCOCCUS ... Complete Laboratory Tests 04/28/17 09:15: White Blood Count 15.4H, Red Blood Count 3.73L, Hemoglobin 8.1L, Hematocrit 26.5L, Mean Corpuscular Volume 71L, Mean Corpuscular Hemoglobin 21.7L, Mean Corpuscular Hemoglobin Concent 30.4L, Red Cell Distribution Width 17.0H, Platelet Count 480H, Mean Platelet Volume 5.1L, Neutrophils (%) (Auto) 75.7H, Lymphocytes (%) (Auto) 13.5L, Monocytes (%) (Auto) 10.1H, Eosinophils (%) (Auto ) 0.1, Basophils (%) (Auto) 0.6, Prothrombin Time 15.1H, Prothromb Time International Ratio 1.4H, Activated Partial Thromboplast Time 40H, Sodium Level 139, Potassium Level 3.5, Chloride Level 102, Carbon Dioxide Level 29, Anion Gap 8, Blood Urea Nitrogen 8, Creatinine 0.7, Estimat Glomerular Filtration Rate > 60, Glucose Level 88, Calcium Level 9.3 Current Medications Medications (Trade) Dose Ordered Sig/Juan Pablo Route PRN Reason Start Time Stop Time Status Last Admin Dose Admin Acetaminophen (Tylenol) 650 mg Q4H PRN ORAL Mild Pain/Temp > 100.5 04/25/17 18:45 05/25/17 18:44 Acetaminophen/ Hydrocodone Bitart ([place] 10/325) 1 tab Q6HR PRN ORAL For Pain 04/25/17 22:15 05/02/17 22:14 04/27/17 14:40 Albuterol/ Ipratropium (Albuterol/ Ipratropium) 3 ml Q4HRT PRN HHN shortness of breath 04/25/17 18:45 04/30/17 18:44 Azithromycin (Zithromax) 500 mg Q24H ORAL 04/26/17 20:00 05/03/17 19:59 04/27/17 20:13 Ceftriaxone Sodium 1 gm/ Sodium Chloride 55 ml @ 110 mls/hr Q24H IVPB 04/26/17 20:00 05/03/17 19:59 04/27/17 20:12 Heparin Sodium (Porcine) (Heparin 5000 units/ml) 5,000 units EVERY 12 HOURS SUBQ 04/25/17 21:00 05/25/17 20:59 04/26/17 20:51 Hydralazine HCl (Apresoline) 25 mg Q8HR ORAL 04/27/17 22:30 05/27/17 22:29 04/28/17 06:31 Metoprolol Tartrate (Lopressor) 50 mg Q12HR ORAL 04/28/17 09:00 05/28/17 08:59 Pantoprazole (Protonix) 40 mg Q12HR IVP 04/27/17 11:00 05/27/17 10:59 04/28/17 08:37 Sertraline HCl (Zoloft) 25 mg DAILY ORAL 04/28/17 09:00 05/28/17 08:59 Iker Avina MD Apr 28, 2017 13:33
--- NOTE | 2017-04-28 13:48 | General Progress Note ---
Assessment/Plan Problem List: (1) HTN (hypertension) ICD Codes: I10 - Essential (primary) hypertension SNOMED: 40557591 (2) Hypoalbuminemia ICD Codes: E88.09 - Other disorders of plasma-protein metabolism, not elsewhere classified SNOMED: 165281354 (3) Anemia ICD Codes: D64.9 - Anemia, unspecified SNOMED: 929405786 Qualifiers: Qualified Codes: D64.9 - Anemia, unspecified (4) Pneumonia ICD Codes: J18.9 - Pneumonia, unspecified organism SNOMED: 271785101 Qualifiers: Qualified Codes: J18.1 - Lobar pneumonia, unspecified organism (5) COPD (chronic obstructive pulmonary disease) ICD Codes: J44.9 - Chronic obstructive pulmonary disease, unspecified SNOMED: 77177868 (6) Urinary tract infection ICD Codes: N39.0 - Urinary tract infection, site not specified SNOMED: 95513250 (7) Shortness of breath ICD Codes: R06.02 - Shortness of breath SNOMED: 243133329 Status: unchanged Assessment/Plan ot pt diet abx cbc bmp am ltach eval Subjective Constitutional: Reports: weakness Allergies: Coded Allergies: FUROSEMIDE (Verified Allergy, Unknown, 04/25/17) All Systems: reviewed and negative except above Subjective calm in bed sl confused Objective Last 24 Hour Vital Signs Date Time Temp Pulse Resp B/P (MAP) Pulse Ox O2 Delivery O2 Flow Rate FiO2 04/28/17 13:16 209.8 88 18 99 04/28/17 13:13 209.8 94 18 99 04/28/17 12:30 98.6 90 19 129/74 94 Nasal Cannula 3.0 98.6 04/28/17 12:10 90 20 125/75 95 Nasal Cannula 3.0 04/28/17 12:05 91 22 128/77 94 Nasal Cannula 3.0 04/28/17 12:00 98.8 94 20 119/69 95 Nasal Cannula 3.0 98.8 04/28/17 09:18 80 18 Room Air 04/28/17 09:18 Room Air 04/28/17 08:00 96 04/28/17 08:00 97.7 87 18 129/65 91 Room Air 97.7 04/28/17 07:20 91 143/78 04/28/17 06:31 143/78 04/28/17 04:00 95.0 81 20 143/78 91 Room Air 95.0 04/28/17 04:00 91 04/28/17 00:00 97.5 82 20 138/78 90 Room Air 97.5 04/28/17 00:00 95 04/27/17 23:15 141/81 04/27/17 21:16 86 129/73 04/27/17 21:16 86 129/73 04/27/17 20:26 Room Air 04/27/17 20:26 86 18 Room Air 04/27/17 20:00 95 04/27/17 20:00 98.6 92 20 129/73 91 Room Air 98.6 04/27/17 19:01 98.2 75 18 110/68 90 Room Air 98.2 04/27/17 15:39 98.2 04/27/17 15:15 69 04/27/17 14:40 98.2 Intake and Output 04/27/17 04/28/17 19:00 07:00 Intake Total 600 ml 160 ml Output Total 300 ml Balance 300 ml 160 ml Intake Oral 600 ml 50 ml IV Total 110 ml Output Urine Total 300 ml # Voids 1 # Bowel Movements 1 4 Laboratory Tests 04/28/17 09:15: White Blood Count 15.4H, Red Blood Count 3.73L, Hemoglobin 8.1L, Hematocrit 26.5L, Mean Corpuscular Volume 71L, Mean Corpuscular Hemoglobin 21.7L, Mean Corpuscular Hemoglobin Concent 30.4L, Red Cell Distribution Width 17.0H, Platelet Count 480H, Mean Platelet Volume 5.1L, Neutrophils (%) (Auto) 75.7H, Lymphocytes (%) (Auto) 13.5L, Monocytes (%) (Auto) 10.1H, Eosinophils (%) (Auto ) 0.1, Basophils (%) (Auto) 0.6, Prothrombin Time 15.1H, Prothromb Time International Ratio 1.4H, Activated Partial Thromboplast Time 40H, Sodium Level 139, Potassium Level 3.5, Chloride Level 102, Carbon Dioxide Level 29, Anion Gap 8, Blood Urea Nitrogen 8, Creatinine 0.7, Estimat Glomerular Filtration Rate > 60, Glucose Level 88, Calcium Level 9.3 Height (Feet): 5 Height (Inches): 10.00 Weight (Pounds): 229 General Appearance: lethargic EENT: normal ENT inspection Neck: normal alignment Cardiovascular: normal peripheral pulses, normal rate, regular rhythm Respiratory/Chest: chest wall non-tender, lungs clear, normal breath sounds Abdomen: normal bowel sounds, non tender, soft Extremities: normal inspection Edema: no edema noted Arm (L), no edema noted Arm (R), no edema noted Leg (L), no edema noted Leg (R), no edema noted Pedal (L), no edema noted Pedal (R), no edema noted Generalized Neurologic: motor weakness Skin: normal pigmentation, warm/dry ANNA LIRA Apr 28, 2017 13:48
--- NOTE | 2017-04-28 16:00 | Progress Note ---
DATE: 04/28/2017 SUBJECTIVE: This is a 62-year-old male patient with shortness of breath and weakness. This is a male patient, who has confusion and disorganized thought process and got mood lability. He has got . He has shortness of breath and generalized weakness. He also has high levels of anxiety and depression worsened by the stress of his medical illness. That is why, his attending physician has requested daily psychiatric consultation. MENTAL STATUS EXAMINATION: This is a 62-year-old male with psychomotor agitation. Mood is irritable and agitated. Affect guarded and restricted. Thought process disorganized and illogical. No signs of any suicidal or homicidal thoughts. Insight and judgment is poor. He does have mood lability and tearfulness. DIAGNOSIS: Major depressive disorder, mild, recurrent without psychotic features. PLAN: Treat him with Zoloft 25 mg daily. Provided 20 minutes of supportive therapy. Encouraged him to interact appropriately with staff. Chart was reviewed. Discussed with staff. Seen and assessed at bedside. Jazmyn Dahl M.D. DR: BECKIE JOB#: [id number] CC:
[2017-04-28] MEDS: HYDROcodone/Acetamin 10/325 tab ORAL PRN (17:53)
--- NOTE | 2017-04-28 19:02 | Cardiology Progress Note ---
Assessment/Plan Assessment/Plan 1. Paroxysmal atrial fibrillation, in sinus rhythm, continue metoprolol, consider Xarelto for protection against stroke. 2. History of hypertension, will monitor the patient's blood pressure as he was hypotensive on admission, left ventricular ejection fraction is ~75%. 3. Large left pleural effusion. 4. History of anemia. 5. History of psychiatric disorder. Subjective Subjective Sinus rhythm at 95. Objective Last 24 Hour Vital Signs Date Time Temp Pulse Resp B/P (MAP) Pulse Ox O2 Delivery O2 Flow Rate FiO2 04/28/17 17:53 98.2 04/28/17 16:00 98.2 95 16 168/86 95 Nasal Cannula 3.0 98.2 04/28/17 16:00 112 04/28/17 14:24 131/71 04/28/17 13:16 209.8 88 18 99 04/28/17 13:13 209.8 94 18 99 04/28/17 12:30 98.6 90 19 129/74 94 Nasal Cannula 3.0 98.6 04/28/17 12:10 90 20 125/75 95 Nasal Cannula 3.0 04/28/17 12:05 91 22 128/77 94 Nasal Cannula 3.0 04/28/17 12:00 98.8 94 20 119/69 95 Nasal Cannula 3.0 98.8 04/28/17 12:00 84 04/28/17 09:18 80 18 Room Air 04/28/17 09:18 Room Air 04/28/17 08:00 96 04/28/17 08:00 97.7 87 18 129/65 91 Room Air 97.7 04/28/17 07:20 91 143/78 04/28/17 06:31 143/78 04/28/17 04:00 95.0 81 20 143/78 91 Room Air 95.0 04/28/17 04:00 91 04/28/17 00:00 97.5 82 20 138/78 90 Room Air 97.5 04/28/17 00:00 95 04/27/17 23:15 141/81 04/27/17 21:16 86 129/73 04/27/17 21:16 86 129/73 04/27/17 20:26 Room Air 04/27/17 20:26 86 18 Room Air 04/27/17 20:00 95 04/27/17 20:00 98.6 92 20 129/73 91 Room Air 98.6 Intake and Output 04/27/17 04/28/17 19:00 07:00 Intake Total 600 ml 160 ml Output Total 300 ml Balance 300 ml 160 ml Intake Oral 600 ml 50 ml IV Total 110 ml Output Urine Total 300 ml # Voids 1 # Bowel Movements 1 4 2D Echo: EF 60%,Mod LVH,Grade I LVDD,mild MR,Pleural eff.,RVSP 41, Small Pericar Ef Laboratory Tests Test 04/28/17 09:15 04/28/17 15:55 White Blood Count 15.4 K/UL (4.8-10.8) H Red Blood Count 3.73 M/UL (4.70-6.10) L Hemoglobin 8.1 G/DL (14.2-18.0) L Hematocrit 26.5 % (42.0-52.0) L Mean Corpuscular Volume 71 FL (80-99) L Mean Corpuscular Hemoglobin 21.7 PG (27.0-31.0) L Mean Corpuscular Hemoglobin Concent 30.4 G/DL (32.0-36.0) L Red Cell Distribution Width 17.0 % (11.6-14.8) H Platelet Count 480 K/UL (150-450) H Mean Platelet Volume 5.1 FL (6.5-10.1) L Neutrophils (%) (Auto) 75.7 % (45.0-75.0) H Lymphocytes (%) (Auto) 13.5 % (20.0-45.0) L Monocytes (%) (Auto) 10.1 % (1.0-10.0) H Eosinophils (%) (Auto) 0.1 % (0.0-3.0) Basophils (%) (Auto) 0.6 % (0.0-2.0) Prothrombin Time 15.1 SEC (9.30-11.50) H Prothromb Time International Ratio 1.4 (0.9-1.1) H Activated Partial Thromboplast Time 40 SEC (23-33) H Sodium Level 139 MMOL/L (136-145) Potassium Level 3.5 MMOL/L (3.5-5.1) Chloride Level 102 MMOL/L (98-107) Carbon Dioxide Level 29 MMOL/L (21-32) Anion Gap 8 mmol/L (5-15) Blood Urea Nitrogen 8 mg/dL (7-18) Creatinine 0.7 MG/DL (0.55-1.30) Estimat Glomerular Filtration Rate > 60 mL/min (>60) Glucose Level 88 MG/DL (74-106) Calcium Level 9.3 MG/DL (8.5-10.1) Urine Random Sodium 95 mmol/L (20-110) Urine Creatinine 171.0 MG/DL (30.0-125.0) H Stool Occult Blood Pending Microbiology Date/Time Source Procedure Growth Status 04/25/17 21:57 Sputum Induced Gram Stain - Final Resulted 04/25/17 21:57 Sputum Culture - Preliminary YEAST Usual Respiratory [place] Resulted Objective HEENT: Atraumatic and normocephalic. Anicteric. Pupils are equal, round, and reactive to light and accommodation. Extraocular muscles intact. There is poor dentition. NECK: JVP less than 5 centimeter. No carotid bruit. Carotid upstrokes 2+ bilaterally. CARDIOVASCULAR: Normal S1 and S2. Regular rate and rhythm. No murmurs, gallops, or rubs. PMI is at fourth intercostal space in the midclavicular line. LUNGS: Diminished breath sounds in both bases. ABDOMEN: Soft, nontender, and nondistended. No hepatosplenomegaly. Positive bowel sounds. EXTREMITIES: No evidence of edema, clubbing, or cyanosis. ELISABETH CONTE Apr 28, 2017 19:02
[2017-04-28] MEDS: cefTRIAXone 1 GM in NS 55 ML IVPB SCH (20:22)
[2017-04-28] MEDS: Azithromycin 250mg tab ORAL SCH (21:41)
--- NOTE | 2017-04-28 21:45 | Procedure Note ---
DATE OF PROCEDURE: 04/28/2017 SURGEON: Kali Milner M.D. REFERRING PHYSICIAN: Ameya Fulton D.O. PROCEDURE: Upper endoscopy with biopsy and attempt colonoscopy was given the poor prep. INDICATION: Anemia, GI bleeding. The procedure, risks, benefits, and possible consequences, including hemorrhage, aspiration, perforation and infection, and alternative treatments, were explained to the patient/legal guardian by Dr. Kali Milner and the patient/legal guardian understood and accepted these risks. PROCEDURE: After informed consent was obtained and the patient was adequately sedated, first Olympus upper endoscope was advanced from mouth into the second portion of duodenum and retroflexion was performed in the stomach. The patient has evidence of prominent folds right in the cardia of the stomach seen on retroflexion and had some hyperpigmentation biopsied this area. In the stomach, there were multiple gastric polyps, most probably fundic gland polyps, which were not biopsied. Random biopsy from antrum and body was obtained to rule out H. pylori infection. Then, the scope was advanced to the duodenal bulb. 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 At this time, the upper endoscope was retrieved. The patient was turned over for colonoscopy. First, a rectal exam was performed, which was positive for internal hemorrhoids. Then, the scope was advanced from rectum into the sigmoid. This procedure was incomplete, we could not see anything. That is why, we did not continue doing the procedure. It was full of solid stool, greenish in color and we could not visualize any mucosa. So we came back and we finally terminated the case. SUMMARY OF FINDINGS: 1. Prominent fold at the cardia, status post biopsy. 2. Multiple gastric polyps. 3. Gastritis, status post biopsy. 4. 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 5. Incomplete colonoscopy examination, poor prep. 6. Hemorrhoids. RECOMMENDATIONS: 1. Follow biopsy and treat accordingly. 2. The patient would need monitoring H and H. 3. If there is any evidence of active lower GI bleeding, we will recommend colonoscopy next week on Monday as an inpatient. Otherwise, the patient to follow up as an outpatient for colonoscopy. I want to thank Dr. Ameya Fulton for this kind referral. Kali Milner M.D. DR: ANTHONY JOB#: [id number] CC: Ameya Fulton D.O.
[2017-04-29] VITALS: BP 128/68
[2017-04-29 04:00] VITALS: BP 111/53
[2017-04-29] MEDS: HYDROcodone/Acetamin 10/325 tab ORAL PRN ×4 (04:38→22:35)
[2017-04-29] MEDS: HydrALAZINE 25mg tab ORAL SCH ×3 (05:35→22:15)
[2017-04-29 07:29] LABS: HEMATOCRIT 24.2 % (42.0-52.0); HEMOGLOBIN 7.6 G/DL (14.2-18.0); MEAN CORPUSCULAR VOLUME 71 FL (80-99); PLATELET COUNT 427 K/UL (150-450); RED BLOOD COUNT 3.42 M/UL (4.70-6.10); RED CELL DISTRIBUTION WIDTH 16.4 % (11.6-14.8); WHITE BLOOD COUNT 15.7 K/UL (4.8-10.8)
[2017-04-29 07:55] LABS: ALANINE AMINOTRANSFERASE 34 U/L (12-78); ALBUMIN 1.4 G/DL (3.4-5.0); ALBUMIN/GLOBULIN RATIO 0.3 (1.0-2.7); ALKALINE PHOSPHATASE 102 U/L (46-116); ANION GAP 6 mmol/L (5-15); ASPARTATE AMINO TRANSFERASE 66 U/L (15-37); BILIRUBIN,TOTAL 0.4 MG/DL (0.2-1.0); BLOOD UREA NITROGEN 9 mg/dL (7-18); CALCIUM 8.9 MG/DL (8.5-10.1); CARBON DIOXIDE 29 MMOL/L (21-32); CHLORIDE 103 MMOL/L (98-107); CREATININE 0.6 MG/DL (0.55-1.30); POTASSIUM 3.4 MMOL/L (3.5-5.1); SODIUM 138 MMOL/L (136-145)
[2017-04-29 08:00] VITALS: BP 120/62
[2017-04-29 08:15] LABS: % IRON SATURATION 12 % (15-50); IRON 12 ug/dL (50-175); TOTAL IRON BINDING CAPACITY 98 ug/dL (250-450)
--- NOTE | 2017-04-29 08:42 | General Progress Note ---
Assessment/Plan Problem List: (1) HTN (hypertension) ICD Codes: I10 - Essential (primary) hypertension SNOMED: 37192878 (2) Hypoalbuminemia ICD Codes: E88.09 - Other disorders of plasma-protein metabolism, not elsewhere classified SNOMED: 312493287 (3) Anemia ICD Codes: D64.9 - Anemia, unspecified SNOMED: 799020395 Qualifiers: Qualified Codes: D64.9 - Anemia, unspecified (4) Pneumonia ICD Codes: J18.9 - Pneumonia, unspecified organism SNOMED: 439784341 Qualifiers: Qualified Codes: J18.1 - Lobar pneumonia, unspecified organism (5) COPD (chronic obstructive pulmonary disease) ICD Codes: J44.9 - Chronic obstructive pulmonary disease, unspecified SNOMED: 67310052 (6) Urinary tract infection ICD Codes: N39.0 - Urinary tract infection, site not specified SNOMED: 51680971 (7) Shortness of breath ICD Codes: R06.02 - Shortness of breath SNOMED: 865198224 Status: unchanged Assessment/Plan ot pt diet abx cbc bmp am ltach eval Subjective Constitutional: Reports: weakness Allergies: Coded Allergies: FUROSEMIDE (Verified Allergy, Unknown, 04/25/17) All Systems: reviewed and negative except above Subjective calm in bed sl confused Objective Last 24 Hour Vital Signs Date Time Temp Pulse Resp B/P (MAP) Pulse Ox O2 Delivery O2 Flow Rate FiO2 04/29/17 05:35 146/67 04/29/17 04:00 98.2 71 20 111/53 94 Nasal Cannula 2.0 98.2 04/29/17 03:43 105 04/29/17 00:00 98.6 70 20 128/68 97 Nasal Cannula 2.0 98.6 04/28/17 23:44 67 04/28/17 21:42 135/74 04/28/17 20:54 105 135/74 04/28/17 20:11 Room Air 04/28/17 20:11 117 20 Room Air 04/28/17 20:00 115 04/28/17 20:00 101.8 105 20 135/74 92 Nasal Cannula 2.0 101.8 04/28/17 18:52 98.2 04/28/17 17:53 98.2 04/28/17 16:00 98.2 95 16 168/86 95 Nasal Cannula 3.0 98.2 04/28/17 16:00 112 04/28/17 14:24 131/71 04/28/17 13:16 209.8 88 18 99 04/28/17 13:13 209.8 94 18 99 04/28/17 12:30 98.6 90 19 129/74 94 Nasal Cannula 3.0 98.6 04/28/17 12:10 90 20 125/75 95 Nasal Cannula 3.0 04/28/17 12:05 91 22 128/77 94 Nasal Cannula 3.0 04/28/17 12:00 98.8 94 20 119/69 95 Nasal Cannula 3.0 98.8 04/28/17 12:00 84 04/28/17 09:18 80 18 Room Air 04/28/17 09:18 Room Air Intake and Output 04/28/17 04/29/17 19:00 07:00 Intake Total 200 ml Output Total 300 ml Balance 200 ml -300 ml Intake Oral 200 ml Output Urine Total 300 ml # Voids 4 2 # Bowel Movements 7 3 Laboratory Tests 04/28/17 09:15: White Blood Count 15.4H, Red Blood Count 3.73L, Hemoglobin 8.1L, Hematocrit 26.5L, Mean Corpuscular Volume 71L, Mean Corpuscular Hemoglobin 21.7L, Mean Corpuscular Hemoglobin Concent 30.4L, Red Cell Distribution Width 17.0H, Platelet Count 480H, Mean Platelet Volume 5.1L, Neutrophils (%) (Auto) 75.7H, Lymphocytes (%) (Auto) 13.5L, Monocytes (%) (Auto) 10.1H, Eosinophils (%) (Auto ) 0.1, Basophils (%) (Auto) 0.6, Prothrombin Time 15.1H, Prothromb Time International Ratio 1.4H, Activated Partial Thromboplast Time 40H, Sodium Level 139, Potassium Level 3.5, Chloride Level 102, Carbon Dioxide Level 29, Anion Gap 8, Blood Urea Nitrogen 8, Creatinine 0.7, Estimat Glomerular Filtration Rate > 60, Glucose Level 88, Calcium Level 9.3 04/28/17 15:55: Urine Random Sodium 95, Urine Creatinine 171.0H, Stool Occult Blood [Pending] 04/29/17 06:45: White Blood Count 15.7H, Red Blood Count 3.42L, Hemoglobin 7.6L, Hematocrit 24.2L, Mean Corpuscular Volume 71L, Mean Corpuscular Hemoglobin 22.2L, Mean Corpuscular Hemoglobin Concent 31.4L, Red Cell Distribution Width 16.4H, Platelet Count 427, Mean Platelet Volume 5.3L, Neutrophils (%) (Auto) , Lymphocytes (%) (Auto) , Monocytes (%) (Auto) , Eosinophils (%) (Auto) , Basophils (%) (Auto) , Sodium Level 138, Potassium Level 3.4L, Chloride Level 103, Carbon Dioxide Level 29, Anion Gap 6, Blood Urea Nitrogen 9, Creatinine 0.6 , Estimat Glomerular Filtration Rate > 60, Glucose Level 93, Calcium Level 8.9, Neutrophils % (Manual) [Pending], Lymphocytes % (Manual) [Pending], Platelet Estimate [Pending], Platelet Morphology [Pending], Iron Level 12L, Total Iron Binding Capacity 98L, Percent Iron Saturation 12L, Unsaturated Iron Binding 86L , Total Bilirubin 0.4, Aspartate Amino Transf (AST/SGOT) 66H, Alanine Aminotransferase (ALT/SGPT) 34, Alkaline Phosphatase 102, Total Protein 6.3L, Albumin 1.4L, Globulin 4.9, Albumin/Globulin Ratio 0.3L Height (Feet): 5 Height (Inches): 10.00 Weight (Pounds): 229 General Appearance: lethargic EENT: normal ENT inspection Neck: normal alignment Cardiovascular: normal peripheral pulses, normal rate, regular rhythm Respiratory/Chest: chest wall non-tender, decreased breath sounds Abdomen: normal bowel sounds, non tender, soft Extremities: normal inspection Edema: no edema noted Arm (L), no edema noted Arm (R), no edema noted Leg (L), no edema noted Leg (R), no edema noted Pedal (L), no edema noted Pedal (R), no edema noted Generalized Neurologic: motor weakness Skin: normal pigmentation, warm/dry ANNA LIRA Apr 29, 2017 08:42
--- NOTE | 2017-04-29 08:55 | General Progress Note ---
Assessment/Plan Problem List: (1) GI bleed ICD Codes: K92.2 - Gastrointestinal hemorrhage, unspecified SNOMED: 35468452 (2) COPD (chronic obstructive pulmonary disease) ICD Codes: J44.9 - Chronic obstructive pulmonary disease, unspecified SNOMED: 77176694 (3) Anemia ICD Codes: D64.9 - Anemia, unspecified SNOMED: 377205380 Qualifiers: Qualified Codes: D64.9 - Anemia, unspecified (4) HTN (hypertension) ICD Codes: I10 - Essential (primary) hypertension SNOMED: 66664929 Assessment/Plan s/p EGD fu biopsy results first stool ob negative iv iron possible Colonoscopy on Monday Subjective ROS Limited/Unobtainable: Yes Allergies: Coded Allergies: FUROSEMIDE (Verified Allergy, Unknown, 04/25/17) Subjective no event Objective Last 24 Hour Vital Signs Date Time Temp Pulse Resp B/P (MAP) Pulse Ox O2 Delivery O2 Flow Rate FiO2 04/29/17 08:43 92 20 Room Air 21 04/29/17 05:35 146/67 04/29/17 04:00 98.2 71 20 111/53 94 Nasal Cannula 2.0 98.2 04/29/17 03:43 105 04/29/17 00:00 98.6 70 20 128/68 97 Nasal Cannula 2.0 98.6 04/28/17 23:44 67 04/28/17 21:42 135/74 04/28/17 20:54 105 135/74 04/28/17 20:11 Room Air 04/28/17 20:11 117 20 Room Air 04/28/17 20:00 115 04/28/17 20:00 101.8 105 20 135/74 92 Nasal Cannula 2.0 101.8 04/28/17 18:52 98.2 04/28/17 17:53 98.2 04/28/17 16:00 98.2 95 16 168/86 95 Nasal Cannula 3.0 98.2 04/28/17 16:00 112 04/28/17 14:24 131/71 04/28/17 13:16 209.8 88 18 99 04/28/17 13:13 209.8 94 18 99 04/28/17 12:30 98.6 90 19 129/74 94 Nasal Cannula 3.0 98.6 04/28/17 12:10 90 20 125/75 95 Nasal Cannula 3.0 04/28/17 12:05 91 22 128/77 94 Nasal Cannula 3.0 04/28/17 12:00 98.8 94 20 119/69 95 Nasal Cannula 3.0 98.8 04/28/17 12:00 84 04/28/17 09:18 80 18 Room Air 04/28/17 09:18 Room Air Intake and Output 04/28/17 04/29/17 19:00 07:00 Intake Total 200 ml Output Total 300 ml Balance 200 ml -300 ml Intake Oral 200 ml Output Urine Total 300 ml # Voids 4 2 # Bowel Movements 7 3 Laboratory Tests 04/28/17 09:15: White Blood Count 15.4H, Red Blood Count 3.73L, Hemoglobin 8.1L, Hematocrit 26.5L, Mean Corpuscular Volume 71L, Mean Corpuscular Hemoglobin 21.7L, Mean Corpuscular Hemoglobin Concent 30.4L, Red Cell Distribution Width 17.0H, Platelet Count 480H, Mean Platelet Volume 5.1L, Neutrophils (%) (Auto) 75.7H, Lymphocytes (%) (Auto) 13.5L, Monocytes (%) (Auto) 10.1H, Eosinophils (%) (Auto ) 0.1, Basophils (%) (Auto) 0.6, Prothrombin Time 15.1H, Prothromb Time International Ratio 1.4H, Activated Partial Thromboplast Time 40H, Sodium Level 139, Potassium Level 3.5, Chloride Level 102, Carbon Dioxide Level 29, Anion Gap 8, Blood Urea Nitrogen 8, Creatinine 0.7, Estimat Glomerular Filtration Rate > 60, Glucose Level 88, Calcium Level 9.3 04/28/17 15:55: Urine Random Sodium 95, Urine Creatinine 171.0H, Stool Occult Blood [Pending] 04/29/17 06:45: White Blood Count 15.7H, Red Blood Count 3.42L, Hemoglobin 7.6L, Hematocrit 24.2L, Mean Corpuscular Volume 71L, Mean Corpuscular Hemoglobin 22.2L, Mean Corpuscular Hemoglobin Concent 31.4L, Red Cell Distribution Width 16.4H, Platelet Count 427, Mean Platelet Volume 5.3L, Neutrophils (%) (Auto) , Lymphocytes (%) (Auto) , Monocytes (%) (Auto) , Eosinophils (%) (Auto) , Basophils (%) (Auto) , Sodium Level 138, Potassium Level 3.4L, Chloride Level 103, Carbon Dioxide Level 29, Anion Gap 6, Blood Urea Nitrogen 9, Creatinine 0.6 , Estimat Glomerular Filtration Rate > 60, Glucose Level 93, Calcium Level 8.9, Differential Total Cells Counted 100, Neutrophils % (Manual) 88H, Lymphocytes % (Manual) 4L, Monocytes % (Manual) 7, Eosinophils % (Manual) 0, Basophils % ( Manual) 0, Band Neutrophils 1, Platelet Estimate Adequate, Platelet Morphology Normal, Hypochromasia 1+, Anisocytosis 1+, Microcytosis 1+, Iron Level 12L, Total Iron Binding Capacity 98L, Percent Iron Saturation 12L, Unsaturated Iron Binding 86L, Total Bilirubin 0.4, Aspartate Amino Transf (AST/SGOT) 66H, Alanine Aminotransferase (ALT/SGPT) 34, Alkaline Phosphatase 102, Total Protein 6.3L, Albumin 1.4L, Globulin 4.9, Albumin/Globulin Ratio 0.3L Height (Feet): 5 Height (Inches): 10.00 Weight (Pounds): 229 General Appearance: no apparent distress EENT: normal ENT inspection Neck: supple Cardiovascular: normal rate Respiratory/Chest: decreased breath sounds Abdomen: normal bowel sounds, non tender, soft Extremities: non-tender JUANITA MANCUSO Apr 29, 2017 08:55
[2017-04-29] MEDS: Sertraline 50mg tab ORAL SCH (09:04)
[2017-04-29] MEDS: Pantoprazole Inj IVP SCH ×2 (09:04→22:14)
[2017-04-29] MEDS: Heparin 5000 units/ml inj SUBQ SCH ×2 (09:05→22:17)
[2017-04-29] MEDS: Metoprolol Tartrate 50mg tab ORAL SCH ×2 (09:08→22:14)
--- NOTE | 2017-04-29 09:58 | Pulmonology Progress Note ---
Assessment/Plan Problems: (1) Pneumonia (2) Pleural effusion (3) COPD (chronic obstructive pulmonary disease) (4) Arrhythmia (5) Anemia (6) Urinary tract infection (7) History of smoking Assessment/Plan svt controlled sinus tach with PAC's, cardiology following respiratory treatment US of chest to assess the pleural effusion, reviewed, equal size, iv abx check electrolytes check labs in am all notes reviewed. transfer to med/surg if ok with cardiology Subjective ROS Limited/Unobtainable: No Constitutional: Reports: no symptoms HEENT: Repors: no symptoms Allergies: Coded Allergies: FUROSEMIDE (Verified Allergy, Unknown, 04/25/17) Objective Last 24 Hour Vital Signs Date Time Temp Pulse Resp B/P (MAP) Pulse Ox O2 Delivery O2 Flow Rate FiO2 04/29/17 09:08 86 120/62 04/29/17 08:43 92 20 Room Air 21 04/29/17 05:35 146/67 04/29/17 04:00 98.2 71 20 111/53 94 Nasal Cannula 2.0 98.2 04/29/17 03:43 105 04/29/17 00:00 98.6 70 20 128/68 97 Nasal Cannula 2.0 98.6 04/28/17 23:44 67 04/28/17 21:42 135/74 04/28/17 20:54 105 135/74 04/28/17 20:11 Room Air 04/28/17 20:11 117 20 Room Air 04/28/17 20:00 115 04/28/17 20:00 101.8 105 20 135/74 92 Nasal Cannula 2.0 101.8 04/28/17 18:52 98.2 04/28/17 17:53 98.2 04/28/17 16:00 98.2 95 16 168/86 95 Nasal Cannula 3.0 98.2 04/28/17 16:00 112 04/28/17 14:24 131/71 04/28/17 13:16 209.8 88 18 99 04/28/17 13:13 209.8 94 18 99 04/28/17 12:30 98.6 90 19 129/74 94 Nasal Cannula 3.0 98.6 04/28/17 12:10 90 20 125/75 95 Nasal Cannula 3.0 04/28/17 12:05 91 22 128/77 94 Nasal Cannula 3.0 04/28/17 12:00 98.8 94 20 119/69 95 Nasal Cannula 3.0 98.8 04/28/17 12:00 84 Intake and Output 04/28/17 04/29/17 19:00 07:00 Intake Total 200 ml Output Total 300 ml Balance 200 ml -300 ml Intake Oral 200 ml Output Urine Total 300 ml # Voids 4 2 # Bowel Movements 7 3 Objective General Appearance: cachetic HEENT: normocephalic Neck: non-tender, normal alignment Respiratory/Chest: chest wall non-tender, lungs clear Breasts: no masses Cardiovascular/Chest: normal peripheral pulses Abdomen: normal bowel sounds, non tender, no organomegaly Extremities: normal range of motion Skin Exam: normal pigmentation Laboratory Tests 04/28/17 15:55: Urine Random Sodium 95, Urine Creatinine 171.0H, Stool Occult Blood [Pending] 04/29/17 06:45: White Blood Count 15.7H, Red Blood Count 3.42L, Hemoglobin 7.6L, Hematocrit 24.2L, Mean Corpuscular Volume 71L, Mean Corpuscular Hemoglobin 22.2L, Mean Corpuscular Hemoglobin Concent 31.4L, Red Cell Distribution Width 16.4H, Platelet Count 427, Mean Platelet Volume 5.3L, Neutrophils (%) (Auto) , Lymphocytes (%) (Auto) , Monocytes (%) (Auto) , Eosinophils (%) (Auto) , Basophils (%) (Auto) , Differential Total Cells Counted 100, Neutrophils % ( Manual) 88H, Lymphocytes % (Manual) 4L, Monocytes % (Manual) 7, Eosinophils % ( Manual) 0, Basophils % (Manual) 0, Band Neutrophils 1, Platelet Estimate Adequate, Platelet Morphology Normal, Hypochromasia 1+, Anisocytosis 1+, Microcytosis 1+, Sodium Level 138, Potassium Level 3.4L, Chloride Level 103, Carbon Dioxide Level 29, Anion Gap 6, Blood Urea Nitrogen 9, Creatinine 0.6, Estimat Glomerular Filtration Rate > 60, Glucose Level 93, Calcium Level 8.9, Iron Level 12L, Total Iron Binding Capacity 98L, Percent Iron Saturation 12L, Unsaturated Iron Binding 86L, Total Bilirubin 0.4, Aspartate Amino Transf (AST/ SGOT) 66H, Alanine Aminotransferase (ALT/SGPT) 34, Alkaline Phosphatase 102, Total Protein 6.3L, Albumin 1.4L, Globulin 4.9, Albumin/Globulin Ratio 0.3L Current Medications Medications (Trade) Dose Ordered Sig/Juan Pablo Route PRN Reason Start Time Stop Time Status Last Admin Dose Admin Acetaminophen (Tylenol) 650 mg Q4H PRN ORAL Mild Pain/Temp > 100.5 04/25/17 18:45 05/25/17 18:44 Acetaminophen/ Hydrocodone Bitart ([place] 10/325) 1 tab Q6HR PRN ORAL For Pain 04/25/17 22:15 05/02/17 22:14 04/29/17 04:38 Albuterol/ Ipratropium (Albuterol/ Ipratropium) 3 ml Q4HRT PRN HHN shortness of breath 04/25/17 18:45 04/30/17 18:44 Azithromycin (Zithromax) 500 mg Q24H ORAL 04/26/17 20:00 05/03/17 19:59 04/28/17 21:41 Ceftriaxone Sodium 1 gm/ Sodium Chloride 55 ml @ 110 mls/hr Q24H IVPB 04/26/17 20:00 05/03/17 19:59 04/28/17 20:22 Heparin Sodium (Porcine) (Heparin 5000 units/ml) 5,000 units EVERY 12 HOURS SUBQ 04/25/17 21:00 05/25/17 20:59 04/29/17 09:05 Hydralazine HCl (Apresoline) 25 mg Q8HR ORAL 04/27/17 22:30 05/27/17 22:29 04/29/17 05:35 Iron Sucrose 100 mg/Sodium Chloride 60 ml @ 240 mls/hr BEDTIME IV 04/29/17 21:00 05/03/17 21:14 Metoprolol Tartrate (Lopressor) 50 mg Q12HR ORAL 04/28/17 09:00 05/28/17 08:59 04/29/17 09:08 Pantoprazole (Protonix) 40 mg Q12HR IVP 04/27/17 11:00 05/27/17 10:59 04/29/17 09:04 Sertraline HCl (Zoloft) 25 mg DAILY ORAL 04/28/17 09:00 05/28/17 08:59 04/29/17 09:04 Iker Avina MD Apr 29, 2017 09:58
--- NOTE | 2017-04-29 11:38 | Infectious Diseases Prog Note ---
Assessment/Plan Assessment/Plan Assessment: SOB- PNA vs pulmonary edema -CXR 04/28: Persistent interstitial congestion. Suggestion of slight improvement of bilateral basilar hazy opacities, may indicate decreasing airspace disease or decreasing pleural fluid -CXR: Left-sided pleural effusion. Bibasilar infiltrates or edema. Cardiomegaly -sp cx normal winnie to date Fever Leukocytosis, increasing B/L moderate pleural effusion- ?parapneumonic vs fluid related -Chest US: Bilateral moderate-sized pleural effusions are demonstrated, approximately equal in size. Atelectatic right lower lobe is also noted. Anemia- Probable lower GI bleed, ( tarry stool ) -occult blood neg repeat : P HTN Afib Plan: -Continue IV Zosyn d# 1 ( probable GI translocation vs intra-abd source ) and DC Ceftriaxone and Azithromycin abx d # 4 -04/26 SP ZOsyn #2 -04/25 SP LEvaquin x1 -Repeat 2 sets of Bcx -CMP, if elevated LFTs, obtain Abd US -?Thoracentesis -f/u cx -Monitor CBC/CMP, temperatures possible Colonoscopy on Monday -CT C/abd/p w/ if worsneing leukocyotis, fever Subjective Constitutional: Denies: no symptoms, fever, chills, fatigue, anorexia, drenching sweats, other Allergies: Coded Allergies: FUROSEMIDE (Verified Allergy, Unknown, 04/25/17) Objective Vital Signs Last 24 Hour Vital Signs Date Time Temp Pulse Resp B/P (MAP) Pulse Ox O2 Delivery O2 Flow Rate FiO2 04/29/17 11:14 99.0 04/29/17 09:08 86 120/62 04/29/17 08:43 92 20 Room Air 21 04/29/17 08:00 79 04/29/17 08:00 99.0 86 20 120/62 96 Nasal Cannula 2.0 99.0 04/29/17 05:35 146/67 04/29/17 04:00 98.2 71 20 111/53 94 Nasal Cannula 2.0 98.2 04/29/17 03:43 105 04/29/17 00:00 98.6 70 20 128/68 97 Nasal Cannula 2.0 98.6 04/28/17 23:44 67 04/28/17 21:42 135/74 04/28/17 20:54 105 135/74 04/28/17 20:11 Room Air 04/28/17 20:11 117 20 Room Air 04/28/17 20:00 115 04/28/17 20:00 101.8 105 20 135/74 92 Nasal Cannula 2.0 101.8 04/28/17 18:52 98.2 04/28/17 17:53 98.2 04/28/17 16:00 98.2 95 16 168/86 95 Nasal Cannula 3.0 98.2 04/28/17 16:00 112 04/28/17 14:24 131/71 04/28/17 13:16 209.8 88 18 99 04/28/17 13:13 209.8 94 18 99 04/28/17 12:30 98.6 90 19 129/74 94 Nasal Cannula 3.0 98.6 04/28/17 12:10 90 20 125/75 95 Nasal Cannula 3.0 04/28/17 12:05 91 22 128/77 94 Nasal Cannula 3.0 04/28/17 12:00 98.8 94 20 119/69 95 Nasal Cannula 3.0 98.8 04/28/17 12:00 84 Height (Feet): 5 Height (Inches): 10.00 Weight (Pounds): 229 HEENT: anicteric Respiratory/Chest: no respiratory distress Cardiovascular: regular rhythm Abdomen: soft, non tender Laboratory Tests Test 04/28/17 15:55 04/29/17 06:45 Urine Random Sodium 95 mmol/L (20-110) Urine Creatinine 171.0 MG/DL (30.0-125.0) H Stool Occult Blood Pending White Blood Count 15.7 K/UL (4.8-10.8) H Red Blood Count 3.42 M/UL (4.70-6.10) L Hemoglobin 7.6 G/DL (14.2-18.0) L Hematocrit 24.2 % (42.0-52.0) L Mean Corpuscular Volume 71 FL (80-99) L Mean Corpuscular Hemoglobin 22.2 PG (27.0-31.0) L Mean Corpuscular Hemoglobin Concent 31.4 G/DL (32.0-36.0) L Red Cell Distribution Width 16.4 % (11.6-14.8) H Platelet Count 427 K/UL (150-450) Mean Platelet Volume 5.3 FL (6.5-10.1) L Neutrophils (%) (Auto) % (45.0-75.0) Lymphocytes (%) (Auto) % (20.0-45.0) Monocytes (%) (Auto) % (1.0-10.0) Eosinophils (%) (Auto) % (0.0-3.0) Basophils (%) (Auto) % (0.0-2.0) Differential Total Cells Counted 100 Neutrophils % (Manual) 88 % (45-75) H Lymphocytes % (Manual) 4 % (20-45) L Monocytes % (Manual) 7 % (1-10) Eosinophils % (Manual) 0 % (0-3) Basophils % (Manual) 0 % (0-2) Band Neutrophils 1 % (0-8) Platelet Estimate Adequate Platelet Morphology Normal Hypochromasia 1+ Anisocytosis 1+ Microcytosis 1+ Sodium Level 138 MMOL/L (136-145) Potassium Level 3.4 MMOL/L (3.5-5.1) L Chloride Level 103 MMOL/L (98-107) Carbon Dioxide Level 29 MMOL/L (21-32) Anion Gap 6 mmol/L (5-15) Blood Urea Nitrogen 9 mg/dL (7-18) Creatinine 0.6 MG/DL (0.55-1.30) Estimat Glomerular Filtration Rate > 60 mL/min (>60) Glucose Level 93 MG/DL (74-106) Calcium Level 8.9 MG/DL (8.5-10.1) Iron Level 12 ug/dL (50-175) L Total Iron Binding Capacity 98 ug/dL (250-450) L Percent Iron Saturation 12 % (15-50) L Unsaturated Iron Binding 86 ug/dL (112-346) L Total Bilirubin 0.4 MG/DL (0.2-1.0) Aspartate Amino Transf (AST/SGOT) 66 U/L (15-37) H Alanine Aminotransferase (ALT/SGPT) 34 U/L (12-78) Alkaline Phosphatase 102 U/L (46-116) Total Protein 6.3 G/DL (6.4-8.2) L Albumin 1.4 G/DL (3.4-5.0) L Globulin 4.9 g/dL Albumin/Globulin Ratio 0.3 (1.0-2.7) L Current Medications Medications (Trade) Dose Ordered Sig/Juan Pablo Route PRN Reason Start Time Stop Time Status Last Admin Dose Admin Acetaminophen (Tylenol) 650 mg Q4H PRN ORAL Mild Pain/Temp > 100.5 04/25/17 18:45 05/25/17 18:44 Acetaminophen/ Hydrocodone Bitart ([place] 10/325) 1 tab Q6HR PRN ORAL For Pain 04/25/17 22:15 05/02/17 22:14 04/29/17 11:14 Albuterol/ Ipratropium (Albuterol/ Ipratropium) 3 ml Q4HRT PRN HHN shortness of breath 04/25/17 18:45 04/30/17 18:44 Azithromycin (Zithromax) 500 mg Q24H ORAL 04/26/17 20:00 05/03/17 19:59 04/28/17 21:41 Ceftriaxone Sodium 1 gm/ Sodium Chloride 55 ml @ 110 mls/hr Q24H IVPB 04/26/17 20:00 05/03/17 19:59 04/28/17 20:22 Heparin Sodium (Porcine) (Heparin 5000 units/ml) 5,000 units EVERY 12 HOURS SUBQ 04/25/17 21:00 05/25/17 20:59 04/29/17 09:05 Hydralazine HCl (Apresoline) 25 mg Q8HR ORAL 04/27/17 22:30 05/27/17 22:29 04/29/17 05:35 Iron Sucrose 100 mg/Sodium Chloride 60 ml @ 240 mls/hr BEDTIME IV 04/29/17 21:00 05/03/17 21:14 Metoprolol Tartrate (Lopressor) 50 mg Q12HR ORAL 04/28/17 09:00 05/28/17 08:59 04/29/17 09:08 Pantoprazole (Protonix) 40 mg Q12HR IVP 04/27/17 11:00 05/27/17 10:59 04/29/17 09:04 Sertraline HCl (Zoloft) 25 mg DAILY ORAL 04/28/17 09:00 05/28/17 08:59 04/29/17 09:04 HELEN CASTRO M.D. Apr 29, 2017 11:38
[2017-04-29 12:00] VITALS: BP 135/74
--- NOTE | 2017-04-29 12:35 | General Progress Note ---
Assessment/Plan Problem List: (1) GI bleed ICD Codes: K92.2 - Gastrointestinal hemorrhage, unspecified SNOMED: 54317159 (2) COPD (chronic obstructive pulmonary disease) ICD Codes: J44.9 - Chronic obstructive pulmonary disease, unspecified SNOMED: 07570532 (3) Anemia ICD Codes: D64.9 - Anemia, unspecified SNOMED: 592412022 Qualifiers: Qualified Codes: D64.9 - Anemia, unspecified (4) HTN (hypertension) ICD Codes: I10 - Essential (primary) hypertension SNOMED: 15838684 Assessment/Plan s/p EGD fu biopsy results first stool ob negative iv iron possible Colonoscopy on Monday Subjective ROS Limited/Unobtainable: Yes Allergies: Coded Allergies: FUROSEMIDE (Verified Allergy, Unknown, 04/25/17) Subjective no event Objective Last 24 Hour Vital Signs Date Time Temp Pulse Resp B/P (MAP) Pulse Ox O2 Delivery O2 Flow Rate FiO2 04/29/17 12:13 99.0 04/29/17 11:14 99.0 04/29/17 09:08 86 120/62 04/29/17 08:43 92 20 Room Air 21 04/29/17 08:00 79 04/29/17 08:00 99.0 86 20 120/62 96 Nasal Cannula 2.0 99.0 04/29/17 05:35 146/67 04/29/17 04:00 98.2 71 20 111/53 94 Nasal Cannula 2.0 98.2 04/29/17 03:43 105 04/29/17 00:00 98.6 70 20 128/68 97 Nasal Cannula 2.0 98.6 04/28/17 23:44 67 04/28/17 21:42 135/74 04/28/17 20:54 105 135/74 04/28/17 20:11 Room Air 04/28/17 20:11 117 20 Room Air 04/28/17 20:00 115 04/28/17 20:00 101.8 105 20 135/74 92 Nasal Cannula 2.0 101.8 04/28/17 17:53 98.2 04/28/17 16:00 98.2 95 16 168/86 95 Nasal Cannula 3.0 98.2 04/28/17 16:00 112 04/28/17 14:24 131/71 04/28/17 13:16 209.8 88 18 99 04/28/17 13:13 209.8 94 18 99 Intake and Output 04/28/17 04/29/17 19:00 07:00 Intake Total 200 ml 55 ml Output Total 300 ml Balance 200 ml -245 ml Intake Oral 200 ml IV Total 55 ml Output Urine Total 300 ml # Voids 4 2 # Bowel Movements 7 3 Laboratory Tests 04/28/17 15:55: Urine Random Sodium 95, Urine Creatinine 171.0H, Stool Occult Blood [Pending] 04/29/17 06:45: White Blood Count 15.7H, Red Blood Count 3.42L, Hemoglobin 7.6L, Hematocrit 24.2L, Mean Corpuscular Volume 71L, Mean Corpuscular Hemoglobin 22.2L, Mean Corpuscular Hemoglobin Concent 31.4L, Red Cell Distribution Width 16.4H, Platelet Count 427, Mean Platelet Volume 5.3L, Neutrophils (%) (Auto) , Lymphocytes (%) (Auto) , Monocytes (%) (Auto) , Eosinophils (%) (Auto) , Basophils (%) (Auto) , Differential Total Cells Counted 100, Neutrophils % ( Manual) 88H, Lymphocytes % (Manual) 4L, Monocytes % (Manual) 7, Eosinophils % ( Manual) 0, Basophils % (Manual) 0, Band Neutrophils 1, Platelet Estimate Adequate, Platelet Morphology Normal, Hypochromasia 1+, Anisocytosis 1+, Microcytosis 1+, Sodium Level 138, Potassium Level 3.4L, Chloride Level 103, Carbon Dioxide Level 29, Anion Gap 6, Blood Urea Nitrogen 9, Creatinine 0.6, Estimat Glomerular Filtration Rate > 60, Glucose Level 93, Calcium Level 8.9, Iron Level 12L, Total Iron Binding Capacity 98L, Percent Iron Saturation 12L, Unsaturated Iron Binding 86L, Total Bilirubin 0.4, Aspartate Amino Transf (AST/ SGOT) 66H, Alanine Aminotransferase (ALT/SGPT) 34, Alkaline Phosphatase 102, Total Protein 6.3L, Albumin 1.4L, Globulin 4.9, Albumin/Globulin Ratio 0.3L Height (Feet): 5 Height (Inches): 10.00 Weight (Pounds): 229 General Appearance: no apparent distress EENT: normal ENT inspection Neck: supple Cardiovascular: normal rate Abdomen: soft Extremities: non-tender JUANITA MANCUSO Apr 29, 2017 12:35
[2017-04-29 16:00] VITALS: BP 140/96
[2017-04-29] MEDS: Piperacillin/Tazobactam 3.375 GM in NS 110 ML IVPB SCH (16:29)
[2017-04-29 20:08] VITALS: BP 119/72
[2017-04-29] MEDS: Iron Sucrose 100 MG in NS 55 ML IV SCH (22:14)
--- NOTE | 2017-04-29 22:30 | Progress Note ---
DATE: 04/29/2017 SUBJECTIVE: The patient is a 62-year-old male patient, came into the hospital with shortness of breath. He has altered mental status, confusion, and mood lability, worsened by the stress of his medical illness. That is why, his attending has requested daily psychiatric consultation. MENTAL STATUS EXAMINATION: A 62-year-old male with psychomotor retardation. Mood is depressed. Affect guarded and restricted. Thought process disorganized and illogical. Denies suicidal or homicidal thoughts. Insight and judgment is poor. 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 PLAN: Treat the patient with Zoloft 25 mg daily. Provide 18 to 20 minutes of supportive therapy and encourage him to interact appropriately with staff and other patients. He was seen and assessed at bedside. Jazmyn Dahl M.D. DR: Vickie JOB#: [id number] CC:
[2017-04-30] MEDS: Piperacillin/Tazobactam 3.375 GM in NS 110 ML IVPB SCH ×3 (00:05→16:36)
[2017-04-30 00:14] VITALS: BP 125/56
[2017-04-30 04:10] VITALS: BP 121/67
[2017-04-30] MEDS: HYDROcodone/Acetamin 10/325 tab ORAL PRN ×3 (04:53→18:06)
[2017-04-30] MEDS: HydrALAZINE 25mg tab ORAL SCH ×3 (06:53→21:29)
[2017-04-30 08:00] VITALS: BP 113/56
--- NOTE | 2017-04-30 08:43 | General Progress Note ---
Assessment/Plan Problem List: (1) GI bleed ICD Codes: K92.2 - Gastrointestinal hemorrhage, unspecified SNOMED: 39346539 (2) COPD (chronic obstructive pulmonary disease) ICD Codes: J44.9 - Chronic obstructive pulmonary disease, unspecified SNOMED: 58103837 (3) Anemia ICD Codes: D64.9 - Anemia, unspecified SNOMED: 794306799 Qualifiers: Qualified Codes: D64.9 - Anemia, unspecified (4) HTN (hypertension) ICD Codes: I10 - Essential (primary) hypertension SNOMED: 83191735 Assessment/Plan s/p EGD fu biopsy results first stool ob>>> negative iv iron given active PNA, elevated WBC will hold colonoscopy for tomorrow fu H&H prn blood transfusion Subjective ROS Limited/Unobtainable: Yes Allergies: Coded Allergies: FUROSEMIDE (Verified Allergy, Unknown, 04/25/17) Subjective no event c/o back pain Objective Last 24 Hour Vital Signs Date Time Temp Pulse Resp B/P (MAP) Pulse Ox O2 Delivery O2 Flow Rate FiO2 04/30/17 08:00 98.1 78 19 113/56 98 98.1 04/30/17 06:53 121/67 04/30/17 04:10 98.0 79 20 121/67 94 Nasal Cannula 98.0 04/30/17 04:00 87 04/30/17 00:14 98.0 64 20 125/56 98 Nasal Cannula 98.0 04/30/17 00:00 59 04/29/17 22:15 119/72 04/29/17 22:14 81 119/72 04/29/17 20:32 81 20 Room Air 2.0 28 04/29/17 20:08 98.2 81 20 119/72 96 Room Air 98.2 04/29/17 19:06 95 04/29/17 18:30 97.9 04/29/17 17:33 97.9 04/29/17 16:00 73 04/29/17 16:00 74 04/29/17 16:00 97.9 91 20 140/96 99 Nasal Cannula 2.0 97.9 04/29/17 13:18 135/74 04/29/17 12:00 73 04/29/17 12:00 98.2 78 20 135/74 97 Nasal Cannula 2.0 98.2 04/29/17 11:14 99.0 04/29/17 09:08 86 120/62 04/29/17 08:43 92 20 Room Air 21 Intake and Output 04/29/17 04/30/17 19:00 07:00 Intake Total 760.5 ml 290.0 ml Output Total 400 ml 450 ml Balance 360.5 ml -160.0 ml Intake Oral 720 ml 120 ml IV Total 40.5 ml 170.0 ml Output Urine Total 400 ml 450 ml # Voids 1 Height (Feet): 5 Height (Inches): 10.00 Weight (Pounds): 229 General Appearance: alert EENT: normal ENT inspection Neck: supple Cardiovascular: normal rate Respiratory/Chest: decreased breath sounds Abdomen: normal bowel sounds, non tender, soft Extremities: non-tender JUANITA MANCUSO Apr 30, 2017 08:42
[2017-04-30] MEDS: Pantoprazole Inj IVP SCH ×2 (09:09→21:00)
[2017-04-30] MEDS: Sertraline 50mg tab ORAL SCH (09:10)
[2017-04-30] MEDS: Metoprolol Tartrate 50mg tab ORAL SCH ×2 (09:10→21:00)
--- NOTE | 2017-04-30 09:10 | General Progress Note ---
Assessment/Plan Problem List: (1) HTN (hypertension) ICD Codes: I10 - Essential (primary) hypertension SNOMED: 80241030 (2) Hypoalbuminemia ICD Codes: E88.09 - Other disorders of plasma-protein metabolism, not elsewhere classified SNOMED: 758165014 (3) Anemia ICD Codes: D64.9 - Anemia, unspecified SNOMED: 699088243 Qualifiers: Qualified Codes: D64.9 - Anemia, unspecified (4) Pneumonia ICD Codes: J18.9 - Pneumonia, unspecified organism SNOMED: 356665678 Qualifiers: Qualified Codes: J18.1 - Lobar pneumonia, unspecified organism (5) COPD (chronic obstructive pulmonary disease) ICD Codes: J44.9 - Chronic obstructive pulmonary disease, unspecified SNOMED: 20263160 (6) Urinary tract infection ICD Codes: N39.0 - Urinary tract infection, site not specified SNOMED: 88378797 (7) Shortness of breath ICD Codes: R06.02 - Shortness of breath SNOMED: 360622716 Status: unchanged Assessment/Plan ot pt diet abx cbc bmp am ltach eval Subjective Constitutional: Reports: weakness Allergies: Coded Allergies: FUROSEMIDE (Verified Allergy, Unknown, 04/25/17) All Systems: reviewed and negative except above Subjective calm in bed sl confused Objective Last 24 Hour Vital Signs Date Time Temp Pulse Resp B/P (MAP) Pulse Ox O2 Delivery O2 Flow Rate FiO2 04/30/17 08:00 98.1 78 19 113/56 98 98.1 04/30/17 06:53 121/67 04/30/17 04:10 98.0 79 20 121/67 94 Nasal Cannula 98.0 04/30/17 04:00 87 04/30/17 00:14 98.0 64 20 125/56 98 Nasal Cannula 98.0 04/30/17 00:00 59 04/29/17 22:15 119/72 04/29/17 22:14 81 119/72 04/29/17 20:32 81 20 Room Air 2.0 28 04/29/17 20:08 98.2 81 20 119/72 96 Room Air 98.2 04/29/17 19:06 95 04/29/17 18:30 97.9 04/29/17 17:33 97.9 04/29/17 16:00 73 04/29/17 16:00 74 04/29/17 16:00 97.9 91 20 140/96 99 Nasal Cannula 2.0 97.9 04/29/17 13:18 135/74 04/29/17 12:00 73 04/29/17 12:00 98.2 78 20 135/74 97 Nasal Cannula 2.0 98.2 04/29/17 11:14 99.0 Intake and Output 04/29/17 04/30/17 19:00 07:00 Intake Total 760.5 ml 290.0 ml Output Total 400 ml 450 ml Balance 360.5 ml -160.0 ml Intake Oral 720 ml 120 ml IV Total 40.5 ml 170.0 ml Output Urine Total 400 ml 450 ml # Voids 1 Height (Feet): 5 Height (Inches): 10.00 Weight (Pounds): 229 General Appearance: lethargic EENT: normal ENT inspection Neck: normal alignment Cardiovascular: normal peripheral pulses, normal rate, regular rhythm Respiratory/Chest: chest wall non-tender, lungs clear, normal breath sounds Abdomen: normal bowel sounds, non tender, soft Extremities: normal inspection Edema: no edema noted Arm (L), no edema noted Arm (R), no edema noted Leg (L), no edema noted Leg (R), no edema noted Pedal (L), no edema noted Pedal (R), no edema noted Generalized Neurologic: motor weakness Skin: normal pigmentation, warm/dry ANNA LIRA Apr 30, 2017 09:10
[2017-04-30] MEDS: Heparin 5000 units/ml inj SUBQ SCH ×2 (09:12→20:59)
[2017-04-30 11:16] LABS: HEMOGLOBIN 7.3 G/DL (14.2-18.0); MEAN CORPUSCULAR VOLUME 71 FL (80-99); PLATELET COUNT 391 K/UL (150-450); RED BLOOD COUNT 3.38 M/UL (4.70-6.10); RED CELL DISTRIBUTION WIDTH 16.7 % (11.6-14.8); WHITE BLOOD COUNT 12.5 K/UL (4.8-10.8)
[2017-04-30 11:28] LABS: ANION GAP 6 mmol/L (5-15); BLOOD UREA NITROGEN 9 mg/dL (7-18); CALCIUM 8.9 MG/DL (8.5-10.1); CARBON DIOXIDE 30 MMOL/L (21-32); CHLORIDE 99 MMOL/L (98-107); CREATININE 0.7 MG/DL (0.55-1.30); POTASSIUM 3.6 MMOL/L (3.5-5.1); SODIUM 135 MMOL/L (136-145)
[2017-04-30 12:00] VITALS: BP 100/70
--- NOTE | 2017-04-30 13:08 | Pulmonology Progress Note ---
Assessment/Plan Problems: (1) Pneumonia (2) Pleural effusion (3) COPD (chronic obstructive pulmonary disease) (4) Arrhythmia (5) Anemia (6) Urinary tract infection (7) History of smoking Assessment/Plan svt controlled sinus tach with PAC's, cardiology following respiratory treatment US of chest to assess the pleural effusion, reviewed, equal size, iv abx check electrolytes check labs in am all notes reviewed. colnoscopy in am CT chest and abdomen ordered for Leukocytosis transfer to med/surg if ok with cardiology Subjective ROS Limited/Unobtainable: No Constitutional: Reports: no symptoms HEENT: Repors: no symptoms Respiratory: Reports: no symptoms Cardiovascular: Reports: no symptoms Allergies: Coded Allergies: FUROSEMIDE (Verified Allergy, Unknown, 04/25/17) Objective Last 24 Hour Vital Signs Date Time Temp Pulse Resp B/P (MAP) Pulse Ox O2 Delivery O2 Flow Rate FiO2 04/30/17 12:00 98.2 70 19 100/70 97 Nasal Cannula 98.2 04/30/17 09:27 75 20 Room Air 2.0 28 04/30/17 09:10 78 113/56 04/30/17 08:03 87 04/30/17 08:00 98.1 78 19 113/56 98 98.1 04/30/17 06:53 121/67 04/30/17 04:10 98.0 79 20 121/67 94 Nasal Cannula 98.0 04/30/17 04:00 87 04/30/17 00:14 98.0 64 20 125/56 98 Nasal Cannula 98.0 04/30/17 00:00 59 04/29/17 22:15 119/72 04/29/17 22:14 81 119/72 04/29/17 20:32 81 20 Room Air 2.0 28 04/29/17 20:08 98.2 81 20 119/72 96 Room Air 98.2 04/29/17 19:06 95 04/29/17 18:30 97.9 04/29/17 17:33 97.9 04/29/17 16:00 73 04/29/17 16:00 74 04/29/17 16:00 97.9 91 20 140/96 99 Nasal Cannula 2.0 97.9 04/29/17 13:18 135/74 Intake and Output 04/29/17 04/30/17 19:00 07:00 Intake Total 760.5 ml 290.0 ml Output Total 400 ml 450 ml Balance 360.5 ml -160.0 ml Intake Oral 720 ml 120 ml IV Total 40.5 ml 170.0 ml Output Urine Total 400 ml 450 ml # Voids 1 Objective General Appearance: cachetic HEENT: normocephalic Neck: non-tender, normal alignment Respiratory/Chest: chest wall non-tender, lungs clear Breasts: no masses Cardiovascular/Chest: normal peripheral pulses Abdomen: normal bowel sounds, non tender, no organomegaly Extremities: normal range of motion Skin Exam: normal pigmentation Microbiology Date/Time Source Procedure Growth Status 04/29/17 06:45 Blood Blood Culture - Preliminary NO GROWTH AFTER 24 HOURS Resulted 04/29/17 06:35 Blood Blood Culture - Preliminary NO GROWTH AFTER 24 HOURS Resulted 04/28/17 13:57 Blood Blood Culture - Preliminary NO GROWTH AFTER 24 HOURS Resulted 04/28/17 13:45 Blood Blood Culture - Preliminary NO GROWTH AFTER 24 HOURS Resulted Laboratory Tests 04/30/17 09:35: White Blood Count 12.5H, Red Blood Count 3.38L, Hemoglobin 7.3L, Hematocrit 24.0L, Mean Corpuscular Volume 71L, Mean Corpuscular Hemoglobin 21.6L, Mean Corpuscular Hemoglobin Concent 30.4L, Red Cell Distribution Width 16.7H, Platelet Count 391, Mean Platelet Volume 5.3L, Neutrophils (%) (Auto) , Lymphocytes (%) (Auto) , Monocytes (%) (Auto) , Eosinophils (%) (Auto) , Basophils (%) (Auto) , Differential Total Cells Counted 100, Neutrophils % ( Manual) 77H, Lymphocytes % (Manual) 10L, Monocytes % (Manual) 12H, Eosinophils % (Manual) 1, Basophils % (Manual) 0, Band Neutrophils 0, Platelet Estimate Adequate, Platelet Morphology Normal, Hypochromasia 1+, Anisocytosis 1+, Microcytosis 1+, Sodium Level 135L, Potassium Level 3.6, Chloride Level 99, Carbon Dioxide Level 30, Anion Gap 6, Blood Urea Nitrogen 9, Creatinine 0.7, Estimat Glomerular Filtration Rate > 60, Glucose Level 114H, Calcium Level 8.9 Current Medications Medications (Trade) Dose Ordered Sig/Juan Pablo Route PRN Reason Start Time Stop Time Status Last Admin Dose Admin Acetaminophen (Tylenol) 650 mg Q4H PRN ORAL Mild Pain/Temp > 100.5 04/25/17 18:45 05/25/17 18:44 04/30/17 09:09 Acetaminophen/ Hydrocodone Bitart ([place] 10/325) 1 tab Q6HR PRN ORAL For Pain 04/25/17 22:15 05/02/17 22:14 04/30/17 11:56 Albuterol/ Ipratropium (Albuterol/ Ipratropium) 3 ml Q4HRT PRN HHN shortness of breath 04/25/17 18:45 04/30/17 18:44 Heparin Sodium (Porcine) (Heparin 5000 units/ml) 5,000 units EVERY 12 HOURS SUBQ 04/25/17 21:00 05/25/17 20:59 04/30/17 09:12 Hydralazine HCl (Apresoline) 25 mg Q8HR ORAL 04/27/17 22:30 05/27/17 22:29 04/30/17 06:53 Iron Sucrose 100 mg/Sodium Chloride 60 ml @ 240 mls/hr BEDTIME IV 04/29/17 21:00 05/03/17 21:14 04/29/17 22:14 Metoprolol Tartrate (Lopressor) 50 mg Q12HR ORAL 04/28/17 09:00 05/28/17 08:59 04/30/17 09:10 Pantoprazole (Protonix) 40 mg Q12HR IVP 04/27/17 11:00 05/27/17 10:59 04/30/17 09:09 Piperacillin Sod/ Tazobactam Sod 3.375 gm/Sodium Chloride 110 ml @ 27.5 mls/hr Q8HR@0000,0800,1600 IVPB 04/29/17 16:00 05/06/17 15:59 04/30/17 08:21 Sertraline HCl (Zoloft) 25 mg DAILY ORAL 04/28/17 09:00 05/28/17 08:59 04/30/17 09:10 Iker Avina MD Apr 30, 2017 13:08
[2017-04-30 16:00] VITALS: BP 110/67
[2017-04-30] MEDS ORDERED: Tubing IV Secondary IV ONE (16:35)
[2017-04-30] MEDS ORDERED: NS 275ml ONE (16:35)
[2017-04-30 20:00] VITALS: BP 116/52
[2017-04-30] MEDS: Iron Sucrose 100 MG in NS 55 ML IV SCH (21:00)
--- NOTE | 2017-04-30 22:45 | Progress Note ---
DATE: 04/30/2017 SUBJECTIVE: This is a 62-year-old male, still confused and disorganized. He has shortness of breath and respiratory insufficiency anxiety and depression has worsened secondary to stress of his medical illness. That is why his attending has requested daily psychiatric consultation. MENTAL STATUS EXAMINATION: This is a 62-year-old male with psychomotor retardation. Mood is depressed. Affect is guarded and restricted. Thought process is slightly disorganized. Denies any current suicidal or homicidal thoughts. Insight and judgment is poor. DIAGNOSIS: Major depressive disorder, severe, recurrent with psychotic features. PLAN: Titrate up on the Zoloft. Provided 20 minutes of supportive therapy. Chart is reviewed and discussed with staff. Seen and assessed at the bedside. Jazmyn Dahl M.D. DR: NIMA JOB#: [id number] CC:
--- NOTE | 2017-04-30 23:34 | Cardiology Progress Note ---
Assessment/Plan Assessment/Plan 1. Paroxysmal atrial fibrillation, in sinus rhythm, continue metoprolol, consider Xarelto as she is high risk per CHADS-Vasc scoring system. 2. History of hypertension, will monitor the patient's blood pressure as he was hypotensive on admission, left ventricular ejection fraction is ~75%. 3. Large left pleural effusion. 4. History of anemia. 5. History of psychiatric disorder. Subjective Subjective No cardiac events. Denies chest pain or SOB. Objective Last 24 Hour Vital Signs Date Time Temp Pulse Resp B/P (MAP) Pulse Ox O2 Delivery O2 Flow Rate FiO2 04/30/17 21:29 116/52 04/30/17 21:00 79 116/52 04/30/17 20:15 Nasal Cannula 2.0 28 04/30/17 20:15 96 Nasal Cannula 2.0 28 04/30/17 19:32 81 18 Nasal Cannula 2.0 28 04/30/17 16:00 97.1 69 19 110/67 95 Nasal Cannula 2.0 97.1 04/30/17 15:31 73 04/30/17 15:04 110/70 04/30/17 12:00 98.2 70 19 100/70 97 Nasal Cannula 98.2 04/30/17 12:00 72 04/30/17 09:27 75 20 Room Air 2.0 28 04/30/17 09:10 78 113/56 04/30/17 08:03 87 04/30/17 08:00 98.1 78 19 113/56 98 98.1 04/30/17 06:53 121/67 04/30/17 04:10 98.0 79 20 121/67 94 Nasal Cannula 98.0 04/30/17 04:00 87 04/30/17 00:14 98.0 64 20 125/56 98 Nasal Cannula 98.0 04/30/17 00:00 59 Intake and Output 04/29/17 04/30/17 19:00 07:00 Intake Total 760.5 ml 290.0 ml Output Total 400 ml 450 ml Balance 360.5 ml -160.0 ml Intake Oral 720 ml 120 ml IV Total 40.5 ml 170.0 ml Output Urine Total 400 ml 450 ml # Voids 1 2D Echo: EF 60%,Mod LVH,Grade I LVDD,mild MR,Pleural eff.,RVSP 41, Small Pericar Eff Laboratory Tests Test 04/30/17 09:35 White Blood Count 12.5 K/UL (4.8-10.8) H Red Blood Count 3.38 M/UL (4.70-6.10) L Hemoglobin 7.3 G/DL (14.2-18.0) L Hematocrit 24.0 % (42.0-52.0) L Mean Corpuscular Volume 71 FL (80-99) L Mean Corpuscular Hemoglobin 21.6 PG (27.0-31.0) L Mean Corpuscular Hemoglobin Concent 30.4 G/DL (32.0-36.0) L Red Cell Distribution Width 16.7 % (11.6-14.8) H Platelet Count 391 K/UL (150-450) Mean Platelet Volume 5.3 FL (6.5-10.1) L Neutrophils (%) (Auto) % (45.0-75.0) Lymphocytes (%) (Auto) % (20.0-45.0) Monocytes (%) (Auto) % (1.0-10.0) Eosinophils (%) (Auto) % (0.0-3.0) Basophils (%) (Auto) % (0.0-2.0) Differential Total Cells Counted 100 Neutrophils % (Manual) 77 % (45-75) H Lymphocytes % (Manual) 10 % (20-45) L Monocytes % (Manual) 12 % (1-10) H Eosinophils % (Manual) 1 % (0-3) Basophils % (Manual) 0 % (0-2) Band Neutrophils 0 % (0-8) Platelet Estimate Adequate Platelet Morphology Normal Hypochromasia 1+ Anisocytosis 1+ Microcytosis 1+ Sodium Level 135 MMOL/L (136-145) L Potassium Level 3.6 MMOL/L (3.5-5.1) Chloride Level 99 MMOL/L (98-107) Carbon Dioxide Level 30 MMOL/L (21-32) Anion Gap 6 mmol/L (5-15) Blood Urea Nitrogen 9 mg/dL (7-18) Creatinine 0.7 MG/DL (0.55-1.30) Estimat Glomerular Filtration Rate > 60 mL/min (>60) Glucose Level 114 MG/DL (74-106) H Calcium Level 8.9 MG/DL (8.5-10.1) Microbiology Date/Time Source Procedure Growth Status 04/29/17 06:45 Blood Blood Culture - Preliminary NO GROWTH AFTER 24 HOURS Resulted 04/29/17 06:35 Blood Blood Culture - Preliminary NO GROWTH AFTER 24 HOURS Resulted 04/28/17 13:57 Blood Blood Culture - Preliminary NO GROWTH AFTER 24 HOURS Resulted 04/28/17 13:45 Blood Blood Culture - Preliminary NO GROWTH AFTER 24 HOURS Resulted Objective HEENT: Atraumatic and normocephalic. Anicteric. Pupils are equal, round, and reactive to light and accommodation. Extraocular muscles intact. There is poor dentition. NECK: JVP less than 5 centimeter. No carotid bruit. Carotid upstrokes 2+ bilaterally. CARDIOVASCULAR: Normal S1 and S2. Regular rate and rhythm. No murmurs, gallops, or rubs. PMI is at fourth intercostal space in the midclavicular line. LUNGS: Diminished breath sounds in both bases. ABDOMEN: Soft, nontender, and nondistended. No hepatosplenomegaly. Positive bowel sounds. EXTREMITIES: No evidence of edema, clubbing, or cyanosis. ELISABETH CONTE Apr 30, 2017 23:34
[2017-05-01] VITALS: BP 127/70
[2017-05-01] MEDS: Piperacillin/Tazobactam 3.375 GM in NS 110 ML IVPB SCH ×4 (00:11→23:48)
[2017-05-01] MEDS: HYDROcodone/Acetamin 10/325 tab ORAL PRN ×3 (00:12→19:29)
[2017-05-01 04:00] VITALS: BP 107/73
[2017-05-01] MEDS: HydrALAZINE 25mg tab ORAL SCH ×3 (05:57→22:14)
[2017-05-01 08:00] VITALS: BP 124/60
[2017-05-01 09:57] LABS: HEMATOCRIT 24.7 % (42.0-52.0); HEMOGLOBIN 7.5 G/DL (14.2-18.0); MEAN CORPUSCULAR VOLUME 71 FL (80-99); PLATELET COUNT 436 K/UL (150-450); RED BLOOD COUNT 3.47 M/UL (4.70-6.10); RED CELL DISTRIBUTION WIDTH 16.7 % (11.6-14.8)
[2017-05-01 10:02] LABS: ANION GAP 3 mmol/L (5-15); BLOOD UREA NITROGEN 8 mg/dL (7-18); CALCIUM 9.2 MG/DL (8.5-10.1); CARBON DIOXIDE 32 MMOL/L (21-32); CHLORIDE 103 MMOL/L (98-107); CREATININE 0.5 MG/DL (0.55-1.30); POTASSIUM 3.8 MMOL/L (3.5-5.1); SODIUM 138 MMOL/L (136-145)
[2017-05-01] MEDS: Pantoprazole Inj IVP SCH ×2 (10:06→20:50)
[2017-05-01] MEDS: Sertraline 50mg tab ORAL SCH (10:06)
[2017-05-01] MEDS: Metoprolol Tartrate 50mg tab ORAL SCH ×2 (10:07→20:50)
[2017-05-01] MEDS: Heparin 5000 units/ml inj SUBQ SCH ×2 (10:08→20:51)
[2017-05-01 12:00] VITALS: BP 115/68
--- NOTE | 2017-05-01 12:09 | GI Progress Note ---
Assessment/Plan Problems: (1) Anemia ICD Codes: D64.9 - Anemia, unspecified SNOMED: 995230150 Qualifiers: Qualified Codes: D64.9 - Anemia, unspecified (2) GI bleed ICD Codes: K92.2 - Gastrointestinal hemorrhage, unspecified SNOMED: 53123266 Status: unchanged Status Narrative Discussed with Dr. Milner. Assessment/Plan s/p EGD fu biopsy results first stool ob>>> negative x 2 iv iron fu H&H prn blood transfusion Subjective Gastrointestinal/Abdominal: Reports: no symptoms Objective Last 24 Hour Vital Signs Date Time Temp Pulse Resp B/P (MAP) Pulse Ox O2 Delivery O2 Flow Rate FiO2 05/01/17 10:07 83 107/73 05/01/17 08:00 79 05/01/17 07:50 Nasal Cannula 2.0 28 05/01/17 07:50 83 18 Nasal Cannula 2.0 28 05/01/17 07:50 97 Nasal Cannula 2.0 28 05/01/17 05:57 107/73 05/01/17 05:14 78 05/01/17 04:00 97.9 82 20 107/73 92 Nasal Cannula 2.0 97.9 05/01/17 00:14 79 05/01/17 00:00 97.0 73 20 127/70 97 Nasal Cannula 2.0 97.0 04/30/17 21:29 116/52 04/30/17 21:00 79 116/52 04/30/17 20:15 Nasal Cannula 2.0 28 04/30/17 20:15 96 Nasal Cannula 2.0 28 04/30/17 20:00 75 04/30/17 20:00 97.1 79 20 116/52 95 Nasal Cannula 2.0 97.1 04/30/17 19:32 81 18 Nasal Cannula 2.0 28 04/30/17 16:00 97.1 69 19 110/67 95 Nasal Cannula 2.0 97.1 04/30/17 15:31 73 04/30/17 15:04 110/70 Intake and Output 04/30/17 05/01/17 19:00 07:00 Intake Total 761.0 ml 197.5 ml Output Total 300 ml 400 ml Balance 461.0 ml -202.5 ml Intake Oral 596 ml IV Total 165.0 ml 197.5 ml Output Urine Total 300 ml 400 ml # Voids 3 Laboratory Tests Test 05/01/17 09:35 White Blood Count 13.0 K/UL (4.8-10.8) H Red Blood Count 3.47 M/UL (4.70-6.10) L Hemoglobin 7.5 G/DL (14.2-18.0) L Hematocrit 24.7 % (42.0-52.0) L Mean Corpuscular Volume 71 FL (80-99) L Mean Corpuscular Hemoglobin 21.7 PG (27.0-31.0) L Mean Corpuscular Hemoglobin Concent 30.5 G/DL (32.0-36.0) L Red Cell Distribution Width 16.7 % (11.6-14.8) H Platelet Count 436 K/UL (150-450) Mean Platelet Volume 5.1 FL (6.5-10.1) L Neutrophils (%) (Auto) % (45.0-75.0) Lymphocytes (%) (Auto) % (20.0-45.0) Monocytes (%) (Auto) % (1.0-10.0) Eosinophils (%) (Auto) % (0.0-3.0) Basophils (%) (Auto) % (0.0-2.0) Differential Total Cells Counted 100 Neutrophils % (Manual) 71 % (45-75) Lymphocytes % (Manual) 10 % (20-45) L Monocytes % (Manual) 16 % (1-10) H Eosinophils % (Manual) 0 % (0-3) Basophils % (Manual) 0 % (0-2) Band Neutrophils 3 % (0-8) Platelet Estimate Adequate Platelet Morphology Normal Hypochromasia 1+ Anisocytosis 1+ Microcytosis 1+ Sodium Level 138 MMOL/L (136-145) Potassium Level 3.8 MMOL/L (3.5-5.1) Chloride Level 103 MMOL/L (98-107) Carbon Dioxide Level 32 MMOL/L (21-32) Anion Gap 3 mmol/L (5-15) L Blood Urea Nitrogen 8 mg/dL (7-18) Creatinine 0.5 MG/DL (0.55-1.30) L Estimat Glomerular Filtration Rate > 60 mL/min (>60) Glucose Level 89 MG/DL (74-106) Calcium Level 9.2 MG/DL (8.5-10.1) Height (Feet): 5 Height (Inches): 10.00 Weight (Pounds): 229 General Appearance: WD/WN, no apparent distress, alert Cardiovascular: normal rate Respiratory/Chest: normal breath sounds, no respiratory distress Abdominal Exam: normal bowel sounds, non tender, soft Extremities: normal range of motion, non-tender Jammie Cote N.P. May 01, 2017 12:09
--- NOTE | 2017-05-01 12:50 | Diagnostic Imaging Report ---
Clinical Indication: Chest pain, history of paroxysmal atrial fibrillation, history of large left pleural effusion Technique: IV administration nonionic contrast. Spiral acquisition obtained through the chest. Multiplanar reconstructions generated. Total dose length product 2541.63 mGycm. CTDIvol(s) 33.01,19.95 mGy, inclusive of abdomen and pelvis CT performed at same time. Dose reduction achieved using automated exposure control Comparison: Chest radiograph 04/28/2017 Findings: There are large bilateral pleural effusions, left slightly larger than the right. There is compressive atelectasis of nearly the entire left lower lobe and nearly entire right lower lobe. There are also mild posterior compressive atelectatic changes of the left upper lobe. The aerated portions of the lungs are clear. The heart is upper limits of normal in size. No pericardial effusion. No mediastinal or hilar mass or adenopathy demonstrated. Unremarkable esophagus. Included portions of the thyroid are unremarkable. No axillary or chest wall mass or adenopathy. The bones demonstrate degenerative spondylosis changes. There is a compression/burst fracture deformity of the T12 vertebral body with approximately 30% height loss both anteriorly and posteriorly. There is also involvement of the bilateral pedicles and laminae. There is evidence of osteolytic changes. Fragmented bone surrounding the vertebral body probably represents fractured peripheral osteophytes, but could also indicate a component of heterotopic ossification. There is a complex healed fracture deformity of the posterolateral left ninth rib, possibly with some cortical erosive change. There is a healed fracture deformity of the lateral left eighth rib. Impression: Large left greater than right bilateral pleural effusions. Resultant compressive atelectasis of most of both lower lobes T12 vertebral body compression/burst fracture deformity, as described, with posterior element involvement as well. Suspect that this is a pathologic fracture secondary to underlying osteolytic process. Posterolateral ninth rib deformity. Possibly just a healed fracture deformity, but complex appearance and some internal cortical discontinuity could indicate underlying osteolytic process. There is also a healed lateral left eighth rib fracture deformity The CT scanner at [facility] is accredited by the [employer] and the scans are performed using protocols designed to limit radiation exposure to as low as reasonably achievable to attain images of sufficient resolution adequate for diagnostic evaluation.
--- NOTE | 2017-05-01 13:19 | Pulmonology Progress Note ---
Assessment/Plan Problems: (1) Pneumonia (2) Pleural effusion (3) COPD (chronic obstructive pulmonary disease) (4) Arrhythmia (5) Anemia (6) Urinary tract infection (7) History of smoking Assessment/Plan looks comfortable svt controlled sinus tach with PAC's, cardiology following respiratory treatment US of chest to assess the pleural effusion, reviewed, equal size, iv abx check electrolytes check labs in am all notes reviewed. colnoscopy in am CT chest reviewed, large effusion. Thoracentesis ordered Ct abdomen results pending transfer to med/surg if ok with cardiology Subjective ROS Limited/Unobtainable: No Allergies: Coded Allergies: FUROSEMIDE (Verified Allergy, Unknown, 04/25/17) Objective Last 24 Hour Vital Signs Date Time Temp Pulse Resp B/P (MAP) Pulse Ox O2 Delivery O2 Flow Rate FiO2 05/01/17 12:00 97.8 59 19 115/68 98 Nasal Cannula 2.0 97.8 05/01/17 10:07 83 107/73 05/01/17 08:00 79 05/01/17 08:00 97.5 70 19 124/60 92 Nasal Cannula 2.0 97.5 05/01/17 07:50 Nasal Cannula 2.0 28 05/01/17 07:50 83 18 Nasal Cannula 2.0 28 05/01/17 07:50 97 Nasal Cannula 2.0 28 05/01/17 05:57 107/73 05/01/17 05:14 78 05/01/17 04:00 97.9 82 20 107/73 92 Nasal Cannula 2.0 97.9 05/01/17 00:14 79 05/01/17 00:00 97.0 73 20 127/70 97 Nasal Cannula 2.0 97.0 04/30/17 21:29 116/52 04/30/17 21:00 79 116/52 04/30/17 20:15 Nasal Cannula 2.0 28 04/30/17 20:15 96 Nasal Cannula 2.0 28 04/30/17 20:00 75 04/30/17 20:00 97.1 79 20 116/52 95 Nasal Cannula 2.0 97.1 04/30/17 19:32 81 18 Nasal Cannula 2.0 28 04/30/17 16:00 97.1 69 19 110/67 95 Nasal Cannula 2.0 97.1 04/30/17 15:31 73 04/30/17 15:04 110/70 Intake and Output 04/30/17 05/01/17 19:00 07:00 Intake Total 761.0 ml 197.5 ml Output Total 300 ml 400 ml Balance 461.0 ml -202.5 ml Intake Oral 596 ml IV Total 165.0 ml 197.5 ml Output Urine Total 300 ml 400 ml # Voids 3 Objective General Appearance: cachetic HEENT: normocephalic Neck: non-tender, normal alignment Respiratory/Chest: chest wall non-tender, lungs clear Breasts: no masses Cardiovascular/Chest: normal peripheral pulses Abdomen: normal bowel sounds, non tender, no organomegaly Extremities: normal range of motion Skin Exam: normal pigmentation Microbiology Date/Time Source Procedure Growth Status 04/29/17 06:45 Blood Blood Culture - Preliminary NO GROWTH AFTER 24 HOURS Resulted 04/29/17 06:35 Blood Blood Culture - Preliminary NO GROWTH AFTER 24 HOURS Resulted 04/28/17 13:57 Blood Blood Culture - Preliminary NO GROWTH AFTER 48 HOURS Resulted 04/28/17 13:45 Blood Blood Culture - Preliminary NO GROWTH AFTER 48 HOURS Resulted Laboratory Tests 05/01/17 09:35: White Blood Count 13.0H, Red Blood Count 3.47L, Hemoglobin 7.5L, Hematocrit 24.7L, Mean Corpuscular Volume 71L, Mean Corpuscular Hemoglobin 21.7L, Mean Corpuscular Hemoglobin Concent 30.5L, Red Cell Distribution Width 16.7H, Platelet Count 436, Mean Platelet Volume 5.1L, Neutrophils (%) (Auto) , Lymphocytes (%) (Auto) , Monocytes (%) (Auto) , Eosinophils (%) (Auto) , Basophils (%) (Auto) , Differential Total Cells Counted 100, Neutrophils % ( Manual) 71, Lymphocytes % (Manual) 10L, Monocytes % (Manual) 16H, Eosinophils % (Manual) 0, Basophils % (Manual) 0, Band Neutrophils 3, Platelet Estimate Adequate, Platelet Morphology Normal, Hypochromasia 1+, Anisocytosis 1+, Microcytosis 1+, Sodium Level 138, Potassium Level 3.8, Chloride Level 103, Carbon Dioxide Level 32, Anion Gap 3L, Blood Urea Nitrogen 8, Creatinine 0.5L, Estimat Glomerular Filtration Rate > 60, Glucose Level 89, Calcium Level 9.2 Current Medications Medications (Trade) Dose Ordered Sig/Juan Pablo Route PRN Reason Start Time Stop Time Status Last Admin Dose Admin Acetaminophen (Tylenol) 650 mg Q4H PRN ORAL Mild Pain/Temp > 100.5 04/25/17 18:45 05/25/17 18:44 05/01/17 04:27 Acetaminophen/ Hydrocodone Bitart ([place] 10/325) 1 tab Q6HR PRN ORAL For Pain 04/25/17 22:15 05/02/17 22:14 05/01/17 07:07 Heparin Sodium (Porcine) (Heparin 5000 units/ml) 5,000 units EVERY 12 HOURS SUBQ 04/25/17 21:00 05/25/17 20:59 05/01/17 10:08 Hydralazine HCl (Apresoline) 25 mg Q8HR ORAL 04/27/17 22:30 05/27/17 22:29 05/01/17 05:57 Iron Sucrose 100 mg/Sodium Chloride 60 ml @ 240 mls/hr BEDTIME IV 04/29/17 21:00 05/03/17 21:14 04/30/17 21:00 Metoprolol Tartrate (Lopressor) 50 mg Q12HR ORAL 04/28/17 09:00 05/28/17 08:59 05/01/17 10:07 Pantoprazole (Protonix) 40 mg Q12HR IVP 04/27/17 11:00 05/27/17 10:59 05/01/17 10:06 Piperacillin Sod/ Tazobactam Sod 3.375 gm/Sodium Chloride 110 ml @ 27.5 mls/hr Q8HR@0000,0800,1600 IVPB 04/29/17 16:00 05/06/17 15:59 05/01/17 10:06 Sertraline HCl (Zoloft) 25 mg DAILY ORAL 04/28/17 09:00 05/28/17 08:59 05/01/17 10:06 Iker Avina MD May 01, 2017 13:19
--- NOTE | 2017-05-01 14:07 | Diagnostic Imaging Report ---
Clinical Indication: Abdominal pain Technique: Patient ingested a limited amount of oral contrast. IV administration nonionic contrast. Venous phase spiral acquisition obtained through the abdomen and pelvis. Multiplanar reconstructions were generated. Total dose length product 2541.63 mGycm. CTDIvol(s) 33.01,19.95 mGy, inclusive of chest CT performed the same time. Dose reduction achieved using automated exposure control Comparison: none Findings: There is a complex mass coming off of the lower pole of the right kidney which measures 6.2 x 7.3 x 7 cm. This demonstrates an enhancement of the periphery and of multiple septations, with lower attenuation central elements which may represent areas of necrosis versus complex cysts. There is some perinephric fluid on the right. There is a 3 mm calculus in the upper pole collecting system. The left kidney is unremarkable. There is, however, some perinephric fat stranding on the left as well. The gallbladder is distended. No definite gallstones. The liver demonstrates a subcentimeter low-attenuation lesion in segment 8 which is too small to characterize. No biliary ductal dilatation. The pancreas is unremarkable. The spleen is borderline enlarged, measuring 13 cm long axis dimension. The left adrenal demonstrates a lower pole 2 cm mass that has peripheral enhancement and central lower attenuation. The right adrenal is unremarkable. No pelvic mass or adenopathy. No retroperitoneal mass or adenopathy. There is mild wall thickening of the rectum and edema of the presacral fat. The rectum is minimally distended by stool. No evidence of diverticulosis or diverticulitis. The appendix is normal. No small bowel distention or small bowel wall thickening. No free or loculated intraperitoneal air or fluid is evident. There is a burst/compression fracture of the T12 vertebral body. The vertebral body appears fragmented and there is involvement of the posterior elements. There is approximately 30% height loss. This appears to pathologic fracture, as there is evidence of considerable osteolysis. There is also abnormal attenuation of the L4 vertebral body, with a mild superior endplate compression fracture deformity. There is low attenuation of the left lateral aspect of the L5 vertebral body. There is also abnormal low attenuation of the right T8 transverse process as well as of the posterolateral left ninth rib Findings of the lower chest are discussed on separate chest CT report Impression: 6.2 x 7.3 x 7 cm complex right lower pole renal mass. Multiloculated central low-attenuation components either represent intracystic components or central necrosis. Findings are suspicious for renal cell carcinoma Evidence of multiple osseous metastases. Resultant pathologic burst/compression fracture of the T12 vertebral body and posterior elements, as well as pathologic fractures of L4 and L5, bony involvement elsewhere as described Low attenuation 2 cm left adrenal mass with enhancing periphery. This is also suspicious for metastasis, although could represent an atypical benign adenoma Mild rectal wall thickening and edema of the presacral fat, suspicious for proctitis. There appears to be mild distention of the rectum by stool, so findings could represent mild fecal impaction with stercoral colitis Borderline splenomegaly Subcentimeter low-attenuation right lobe liver lesion, too small to characterize, most likely benign simple cyst or bile hamartoma. No further follow-up necessary Findings discussed by phone with Dr. Avina at the time of interpretation Mild splenomegaly The CT scanner at [facility] is accredited by the [employer] and the scans are performed using protocols designed to limit radiation exposure to as low as reasonably achievable to attain images of sufficient resolution adequate for diagnostic evaluation.
--- NOTE | 2017-05-01 14:28 | Infectious Diseases Prog Note ---
Assessment/Plan Assessment/Plan SOB- PNA vs pulmonary edema -CT chest 05/01: Large left greater than right bilateral pleural effusions. Resultant compressive atelectasis of most of both lower lobes. T12 vertebral body compression/burst fracture deformity, as described, with posterior element involvement as well. Suspect that this is a pathologic fracture secondary to underlying osteolytic process. Posterolateral ninth rib deformity. Possibly just a healed fracture deformity, but complex appearance and some internal cortical discontinuity could indicate underlying osteolytic process. There is also a healed lateral left eighth rib fracture deformity -CXR 04/28: Persistent interstitial congestion. Suggestion of slight improvement of bilateral basilar hazy opacities, may indicate decreasing airspace disease or decreasing pleural fluid -CXR: Left-sided pleural effusion. Bibasilar infiltrates or edema. Cardiomegaly -sp cx normal winnie , C. albicans (colonizer) Fever , improving Leukocytosis, persistent but improved- suspect multifactorial to possible PNA, possible parapneumonic effusion and possible metastatic disease (?RCC) MEtastatic disease per CT findings- suggest possible RCC B/L moderate pleural effusion- ?parapneumonic vs fluid related vs malignant -Chest US: Bilateral moderate-sized pleural effusions are demonstrated, approximately equal in size. Atelectatic right lower lobe is also noted. Probable lower GI bleed, ( tarry stool ) -occult blood neg repeat :neg -CT abd/p w/: 6.2 x 7.3 x 7 cm complex right lower pole renal mass. Multiloculated central low-attenuation components either represent intracystic components or central necrosis. Findings are suspicious for renal cell carcinoma. Evidence of multiple osseous metastases. Resultant pathologic burst/ compression fracture of the T12 vertebral body and posterior elements, as well as pathologic fractures of L4 and L5, bony involvement elsewhere as described. Low attenuation 2 cm left adrenal mass with enhancing periphery. This is also suspicious for metastasis, although could represent an atypical benign adenoma. Mild rectal wall thickening and edema of the presacral fat, suspicious for proctitis.There appears to be mild distention of the rectum by stool, so findings could represent mild fecal impaction with stercoral colitis. Borderline splenomegaly. Subcentimeter low-attenuation right lobe liver lesion, too small to characterize, most likely benign simple cyst or bile hamartoma. No further follow-up necessary Anemia- Multiple rib fractures- ?pathologic , ?MM vs renal CA given CT findings Thoracic compression fracture HTN Afib Plan: -Continue empiric IV Zosyn d# 3/ pending fever and WBC curve and pleural fluid analysis -04/29 SP Ceftriaxone/azithromycin #4 -04/26 SP ZOsyn #2 -04/25 SP LEvaquin x1 -For thoracentesis -fluid analysis, cytology and culture -f/u cx -Recommend Heme ONC car/ for possible renal metastatic cancer. -for colonoscopy today Subjective Allergies: Coded Allergies: FUROSEMIDE (Verified Allergy, Unknown, 04/25/17) Subjective afebrile in 48hrs leukocytosis improving but still persisent; has not go lower than 12 Bcx NTD Objective Vital Signs Last 24 Hour Vital Signs Date Time Temp Pulse Resp B/P (MAP) Pulse Ox O2 Delivery O2 Flow Rate FiO2 05/01/17 12:00 97.8 59 19 115/68 98 Nasal Cannula 2.0 97.8 05/01/17 10:07 83 107/73 05/01/17 08:00 79 05/01/17 08:00 97.5 70 19 124/60 92 Nasal Cannula 2.0 97.5 05/01/17 07:50 Nasal Cannula 2.0 28 05/01/17 07:50 83 18 Nasal Cannula 2.0 28 05/01/17 07:50 97 Nasal Cannula 2.0 28 05/01/17 05:57 107/73 05/01/17 05:14 78 05/01/17 04:00 97.9 82 20 107/73 92 Nasal Cannula 2.0 97.9 05/01/17 00:14 79 05/01/17 00:00 97.0 73 20 127/70 97 Nasal Cannula 2.0 97.0 04/30/17 21:29 116/52 04/30/17 21:00 79 116/52 04/30/17 20:15 Nasal Cannula 2.0 28 04/30/17 20:15 96 Nasal Cannula 2.0 28 04/30/17 20:00 75 04/30/17 20:00 97.1 79 20 116/52 95 Nasal Cannula 2.0 97.1 04/30/17 19:32 81 18 Nasal Cannula 2.0 28 04/30/17 16:00 97.1 69 19 110/67 95 Nasal Cannula 2.0 97.1 04/30/17 15:31 73 04/30/17 15:04 110/70 Height (Feet): 5 Height (Inches): 10.00 Weight (Pounds): 229 Objective General Appearance: no apparent distress, alert,non-toxic HEENT: normocephalic, atraumatic, normal pharynx, Neck: full range of motion, supple/symm/no masses Respiratory: chest non-tender, lungs clear, normal breath sounds, speaking full sentences Cardiovascular : regular rate, rhythm, no edema Gastrointestinal: normal bowel sounds, non tender, soft, non-distended, no guarding, no rebound Genitourinary: normal inspection, no CVA tenderness Musculoskeletal: back normal, gait/station normal, normal range of motion, non- tender Neurologic: alert, oriented x3, responsive, motor strength/tone normal, sensory intact, speech normal Skin: normal color, no rash, warm/dry, well hydrated Lymphatic: no adenopathy Microbiology Date/Time Source Procedure Growth Status 04/29/17 06:45 Blood Blood Culture - Preliminary NO GROWTH AFTER 24 HOURS Resulted 04/29/17 06:35 Blood Blood Culture - Preliminary NO GROWTH AFTER 24 HOURS Resulted Laboratory Tests Test 05/01/17 09:35 White Blood Count 13.0 K/UL (4.8-10.8) H Red Blood Count 3.47 M/UL (4.70-6.10) L Hemoglobin 7.5 G/DL (14.2-18.0) L Hematocrit 24.7 % (42.0-52.0) L Mean Corpuscular Volume 71 FL (80-99) L Mean Corpuscular Hemoglobin 21.7 PG (27.0-31.0) L Mean Corpuscular Hemoglobin Concent 30.5 G/DL (32.0-36.0) L Red Cell Distribution Width 16.7 % (11.6-14.8) H Platelet Count 436 K/UL (150-450) Mean Platelet Volume 5.1 FL (6.5-10.1) L Neutrophils (%) (Auto) % (45.0-75.0) Lymphocytes (%) (Auto) % (20.0-45.0) Monocytes (%) (Auto) % (1.0-10.0) Eosinophils (%) (Auto) % (0.0-3.0) Basophils (%) (Auto) % (0.0-2.0) Differential Total Cells Counted 100 Neutrophils % (Manual) 71 % (45-75) Lymphocytes % (Manual) 10 % (20-45) L Monocytes % (Manual) 16 % (1-10) H Eosinophils % (Manual) 0 % (0-3) Basophils % (Manual) 0 % (0-2) Band Neutrophils 3 % (0-8) Platelet Estimate Adequate Platelet Morphology Normal Hypochromasia 1+ Anisocytosis 1+ Microcytosis 1+ Sodium Level 138 MMOL/L (136-145) Potassium Level 3.8 MMOL/L (3.5-5.1) Chloride Level 103 MMOL/L (98-107) Carbon Dioxide Level 32 MMOL/L (21-32) Anion Gap 3 mmol/L (5-15) L Blood Urea Nitrogen 8 mg/dL (7-18) Creatinine 0.5 MG/DL (0.55-1.30) L Estimat Glomerular Filtration Rate > 60 mL/min (>60) Glucose Level 89 MG/DL (74-106) Calcium Level 9.2 MG/DL (8.5-10.1) Current Medications Medications (Trade) Dose Ordered Sig/Juan Pablo Route PRN Reason Start Time Stop Time Status Last Admin Dose Admin Acetaminophen (Tylenol) 650 mg Q4H PRN ORAL Mild Pain/Temp > 100.5 04/25/17 18:45 05/25/17 18:44 05/01/17 04:27 Acetaminophen/ Hydrocodone Bitart ([place] 10/325) 1 tab Q6HR PRN ORAL For Pain 04/25/17 22:15 05/02/17 22:14 05/01/17 07:07 Heparin Sodium (Porcine) (Heparin 5000 units/ml) 5,000 units EVERY 12 HOURS SUBQ 04/25/17 21:00 05/25/17 20:59 05/01/17 10:08 Hydralazine HCl (Apresoline) 25 mg Q8HR ORAL 04/27/17 22:30 05/27/17 22:29 05/01/17 05:57 Iron Sucrose 100 mg/Sodium Chloride 60 ml @ 240 mls/hr BEDTIME IV 04/29/17 21:00 05/03/17 21:14 04/30/17 21:00 Metoprolol Tartrate (Lopressor) 50 mg Q12HR ORAL 04/28/17 09:00 4/15/18 08:59 05/01/17 10:07 Pantoprazole (Protonix) 40 mg Q12HR IVP 04/27/17 11:00 05/27/17 10:59 05/01/17 10:06 Piperacillin Sod/ Tazobactam Sod 3.375 gm/Sodium Chloride 110 ml @ 27.5 mls/hr Q8HR@0000,0800,1600 IVPB 04/29/17 16:00 05/06/17 15:59 05/01/17 10:06 Sertraline HCl (Zoloft) 25 mg DAILY ORAL 04/28/17 09:00 05/28/17 08:59 05/01/17 10:06 Ofelia Mak M.D. May 01, 2017 14:28
--- NOTE | 2017-05-01 15:08 | Pre-Procedure Note/Attestation ---
Pre-Procedure Note/Attestation Complete Prior to Procedure Planned Procedure: left Procedure Narrative: US guided thoracentesis Indications for Procedure Pre-Operative Diagnosis: Pleural effusion Attestation I attest that I discussed the nature of the procedure; its benefits; risks and complications; and alternatives (and the risks and benefits of such alternatives ), prior to the procedure, with the patient (or the patient's legal route service representative). I attest that, if there was a reasonable possibility of needing a blood transfusion, the patient (or the patient's legal route service representative) was given the [facility] standardized written summary, pursuant to the [employer] Gh[employer] Blood Safety Act ([place] Health and Safety Code # 1645, as amended). I attest that I re-evaluated the patient just prior to the surgery and that there has been no change in the patient's H&P, except as documented below: ONEIL MAIER M.D. May 01, 2017 15:08
--- NOTE | 2017-05-01 15:11 | General Progress Note ---
Assessment/Plan Problem List: (1) HTN (hypertension) ICD Codes: I10 - Essential (primary) hypertension SNOMED: 14759503 (2) Hypoalbuminemia ICD Codes: E88.09 - Other disorders of plasma-protein metabolism, not elsewhere classified SNOMED: 615629294 (3) Anemia ICD Codes: D64.9 - Anemia, unspecified SNOMED: 554929477 Qualifiers: Qualified Codes: D64.9 - Anemia, unspecified (4) Pneumonia ICD Codes: J18.9 - Pneumonia, unspecified organism SNOMED: 964779416 Qualifiers: Qualified Codes: J18.1 - Lobar pneumonia, unspecified organism (5) COPD (chronic obstructive pulmonary disease) ICD Codes: J44.9 - Chronic obstructive pulmonary disease, unspecified SNOMED: 82980051 (6) Urinary tract infection ICD Codes: N39.0 - Urinary tract infection, site not specified SNOMED: 14398335 (7) Shortness of breath ICD Codes: R06.02 - Shortness of breath SNOMED: 464690183 (8) Renal cancer ICD Codes: C64.9 - Malignant neoplasm of unspecified kidney, except renal pelvis SNOMED: 119888978 Status: unchanged Assessment/Plan ot pt diet abx cbc bmp am heme and neph eval ltach eval Subjective Constitutional: Reports: weakness Respiratory: Reports: shortness of breath Allergies: Coded Allergies: FUROSEMIDE (Verified Allergy, Unknown, 04/25/17) All Systems: reviewed and negative except above Subjective o2nc calm in bed sl confused Objective Last 24 Hour Vital Signs Date Time Temp Pulse Resp B/P (MAP) Pulse Ox O2 Delivery O2 Flow Rate FiO2 05/01/17 12:00 97.8 59 19 115/68 98 Nasal Cannula 2.0 97.8 05/01/17 10:07 83 107/73 05/01/17 08:00 79 05/01/17 08:00 97.5 70 19 124/60 92 Nasal Cannula 2.0 97.5 05/01/17 07:50 Nasal Cannula 2.0 28 05/01/17 07:50 83 18 Nasal Cannula 2.0 28 05/01/17 07:50 97 Nasal Cannula 2.0 28 05/01/17 05:57 107/73 05/01/17 05:14 78 05/01/17 04:00 97.9 82 20 107/73 92 Nasal Cannula 2.0 97.9 05/01/17 00:14 79 05/01/17 00:00 97.0 73 20 127/70 97 Nasal Cannula 2.0 97.0 04/30/17 21:29 116/52 04/30/17 21:00 79 116/52 04/30/17 20:15 Nasal Cannula 2.0 28 04/30/17 20:15 96 Nasal Cannula 2.0 28 04/30/17 20:00 75 04/30/17 20:00 97.1 79 20 116/52 95 Nasal Cannula 2.0 97.1 04/30/17 19:32 81 18 Nasal Cannula 2.0 28 04/30/17 16:00 97.1 69 19 110/67 95 Nasal Cannula 2.0 97.1 04/30/17 15:31 73 Intake and Output 04/30/17 05/01/17 19:00 07:00 Intake Total 761.0 ml 197.5 ml Output Total 300 ml 400 ml Balance 461.0 ml -202.5 ml Intake Oral 596 ml IV Total 165.0 ml 197.5 ml Output Urine Total 300 ml 400 ml # Voids 3 Laboratory Tests 05/01/17 09:35: White Blood Count 13.0H, Red Blood Count 3.47L, Hemoglobin 7.5L, Hematocrit 24.7L, Mean Corpuscular Volume 71L, Mean Corpuscular Hemoglobin 21.7L, Mean Corpuscular Hemoglobin Concent 30.5L, Red Cell Distribution Width 16.7H, Platelet Count 436, Mean Platelet Volume 5.1L, Neutrophils (%) (Auto) , Lymphocytes (%) (Auto) , Monocytes (%) (Auto) , Eosinophils (%) (Auto) , Basophils (%) (Auto) , Differential Total Cells Counted 100, Neutrophils % ( Manual) 71, Lymphocytes % (Manual) 10L, Monocytes % (Manual) 16H, Eosinophils % (Manual) 0, Basophils % (Manual) 0, Band Neutrophils 3, Platelet Estimate Adequate, Platelet Morphology Normal, Hypochromasia 1+, Anisocytosis 1+, Microcytosis 1+, Sodium Level 138, Potassium Level 3.8, Chloride Level 103, Carbon Dioxide Level 32, Anion Gap 3L, Blood Urea Nitrogen 8, Creatinine 0.5L, Estimat Glomerular Filtration Rate > 60, Glucose Level 89, Calcium Level 9.2 Height (Feet): 5 Height (Inches): 10.00 Weight (Pounds): 229 General Appearance: lethargic EENT: normal ENT inspection Neck: normal alignment Cardiovascular: normal peripheral pulses, normal rate, regular rhythm Respiratory/Chest: decreased breath sounds Abdomen: normal bowel sounds, non tender, soft Extremities: normal inspection Edema: no edema noted Arm (L), no edema noted Arm (R), no edema noted Leg (L), no edema noted Leg (R), no edema noted Pedal (L), no edema noted Pedal (R), no edema noted Generalized Neurologic: motor weakness Skin: normal pigmentation, warm/dry ANNA LIRA May 01, 2017 15:11
--- NOTE | 2017-05-01 15:15 | Progress Note ---
DATE: 05/01/2017 SUBJECTIVE: The patient is a male patient, 62 years old. Still complaining of lot of depression, but the reason why he is in the hospital is because of shortness of breath and generalized weakness. However, he continues to have some depression, mood lability, agitation, and irritability worsened by the stress of his medical illness. That is why his attending physician requested daily psychiatric consultation for this patient. This patient has a history of major depression with psychotic features as far as there is daily psychiatric consultation for this patient. I saw and assessed him at bedside. MENTAL STATUS EXAMINATION: This is a 62-year-old male with psychomotor retardation. Mood is depressed. Affect guarded and restricted. Thought process, disorganized and illogical. Denies any current suicidal or homicidal thoughts. Insight and judgment is poor. DIAGNOSIS: Major depression with psychotic features. PLAN: Treat this patient with a medication regimen consisting of Zoloft 25 mg today to reduce depression and anxiety, but today I am also going to add Zyprexa at a dose of 5 mg at bedtime because per records he was taking that before as a mood stabilizer recently. He says that he believed it helped him when he was taking it to help stabilize his mood, reduced his mood lability. So, I am going to start 5 mg p.o. at bedtime and encouraged him to interact appropriate with staff and other patients. Chart reviewed and discussed with the staff. The patient was seen and assessed in his room and he will continue to be followed by Psychiatry throughout his hospital course. An 18 to 20 minutes of supportive therapy provided. Jazmyn Dahl M.D. DR: RO JOB#: [id number] CC:
[2017-05-01 16:00] VITALS: BP 110/58
[2017-05-01 17:02] LABS: INR 1.2 (0.9-1.1)
--- NOTE | 2017-05-01 17:22 | Diagnostic Imaging Report ---
Indication: Post thoracentesis Technique: One view of the chest Comparison: 04/28/2017 Findings: There is decreased left pleural effusion. No pneumothorax. There is persistent left basilar atelectasis and possibly retrocardiac consolidation. Hazy opacity at the right lung base likely reflects right-sided pleural effusion demonstrated on recent CT scans. The heart remains enlarged Impression: No pneumothorax, status post left thoracentesis Findings as noted
--- NOTE | 2017-05-01 17:43 | Diagnostic Imaging Report ---
Indications: Pleural effusion Technique: Ultrasound used to localize optimal puncture site. Left side appeared to be a larger pleural effusion than the right. Sterile prepping and draping left chest. Local anesthesia with 1% lidocaine. Under real-time ultrasound guidance, puncture pleural space using thoracentesis needle. Stylet removed. Catheter placed to vacuum bottle suction. Total 1400 milliliters of cloudy ponce fluid aspirated. A specimen was sent to the lab. Patient tolerated procedure well, without immediate complication. Findings: Followup sonography demonstrates complete resolution of pleural fluid. Impression: Successful ultrasound-guided thoracentesis, yielding 1400 milliliters of cloudy ponce fluid
[2017-05-01 20:00] VITALS: BP 131/65
[2017-05-01] MEDS: Iron Sucrose 100 MG in NS 55 ML IV SCH (21:00)
[2017-05-02] VITALS: BP 135/63
--- NOTE | 2017-05-02 00:30 | Consultation ---
DATE OF CONSULTATION: 05/01/2017 NEPHROLOGY CONSULTATION CONSULTING PHYSICIAN: Angi Kumar M.D. REFERRING PHYSICIAN: Ameya Fulton D.O. REASON FOR CONSULTATION: Proteinuria and fluid overload. HISTORY OF PRESENT ILLNESS: This is a 62-year-old gentleman with past medical history significant for history of hypertension, history of atrial fibrillation, who was originally brought into [facility] on 04/27/2017 for evaluation of increasing shortness of breath. Upon arrival, the patient was found to be fluid overloaded and hypotensive. The patient had a chest x-ray, which showed cardiomegaly with pulmonary and vascular congestion. The patient consequently was admitted in the hospital, started on diuretic, and over the course of hospital admission, the patient was found to have proteinuria and elevated BNP. I was consulted for management of renal disease and electrolyte imbalance. Unfortunately, the patient is unable to provide meaningful history for me. So, most of my history obtained through reviewing the chart. PAST MEDICAL HISTORY: 1. Hypertension. 2. History of atrial fibrillation. 3. History of psychiatric disease. PAST SURGICAL HISTORY: None. HOME MEDICATIONS: 1. Aspirin 81 mg p.o. daily. 2. Dulcolax 5 mg daily. 3. Cardizem 30 mg p.o. t.i.d. 4. Iron sulfate 325 mg p.o. daily. 5. Hydralazine p.o. q.8 h. 6. Hampton 10/325 mg p.o. daily. 7. Ativan 1 mg p.o. daily. 8. Metoprolol 12.5 mg p.o. daily. 9. Zyprexa 5 mg p.o. daily. 10. Xarelto 20 mg p.o. daily. 11. Desyrel 50 mg at bedtime. ALLERGIES: Allergic to furosemide. SOCIAL HISTORY: He lives at [facility]. There is no history of tobacco, alcohol, or drug use. FAMILY HISTORY: Noncontributory. REVIEW OF SYSTEMS: GENERAL: There was no fever or chills reported. PULMONARY: He had some shortness of breath. CARDIOVASCULAR: Denies any chest pain or palpitations. GASTROINTESTINAL: There is no nausea or vomiting. GENITOURINARY: No dysuria. No frequency or hematuria. PHYSICAL EXAMINATION: VITAL SIGNS: The patient had temperature of 98 degrees, blood pressure of 100/60, pulse rate of 73, and respiratory rate of 18. HEAD AND NECK: No JVP. No LAD. No thyromegaly. Head is atraumatic and normocephalic. Extraocular movements intact. LUNGS: Clear to auscultation. CARDIAC: Regular rate and rhythm. S1 and S2. No murmur. No rub. ABDOMEN: Soft, nontender, and nondistended. EXTREMITIES: No edema. No clubbing. No cyanosis. LABORATORY VALUES: The patient has had UA, which revealed specific gravity of 1.020, pH of 5, protein 1+, wbc 0 to 2, and rbc 0 to 2. Chemistry revealed sodium 138, potassium 3.8, 103 chloride, 32 bicarbonate, BUN of 5, creatinine of 0.5, and glucose of 89. BNP of 1617. CBC revealed WBC count of 13,000, hemoglobin of 7.5, hematocrit of 24, and platelet count of 431,000. ASSESSMENT: 1. Proteinuria. 2. Fluid overload. 3. Hypertension. 4. Atrial fibrillation. PLAN: Plan for the patient is to check the random urine protein-creatinine ratio to calculate the proteinuria and check the I's and O's closely. Obtain daily weights. Monitor renal function and electrolytes closely. Start the patient on Bumex for fluid overload. Avoid any NSAIDs or nephrotoxics. At the end, I would like to thank Dr. Ameya Fulton for allowing me to participate in the care of this patient. Angi Kumar M.D. DR: Saúl JOB#: [id number] CC:
[2017-05-02 04:00] VITALS: BP 130/59
[2017-05-02] MEDS: HydrALAZINE 25mg tab ORAL SCH ×3 (06:29→21:33)
--- NOTE | 2017-05-02 06:30 | Consultation ---
DATE OF CONSULTATION: 05/01/2017 HEMATOLOGY/ONCOLOGY CONSULTATION CONSULTING PHYSICIAN: Chilo Sidhu M.D. REQUESTING PHYSICIAN: Ameya Fulton D.O. REASON FOR CONSULTATION: Evaluation of anemia, leukopenia, and renal cell carcinoma. IDENTIFYING DATA: Dear Dr. Ameya Fulton, The patient is a pleasant 62-year-old male with past medical history significant for COPD, hypertension, and psychiatric disorder, at this time presents from [facility] with the above-mentioned diagnoses of shortness of breath for the past four days, slight coughing, and presented to [facility] with pneumonia and sepsis. The patient apparently has history of renal cell carcinoma. An EKG showed a bundle-branch block. We will need to obtain further history from renal cell carcinoma standpoint. Imaging has been reviewed at this time. He had a CT scan of the abdomen and pelvis, which showed 6.2 x 7.3 complex right lower renal mass and lesion with central necrosis, evidence of multiple osseous metastasis resulted in thoracic compression fracture of T12, low-attenuated 2 cm adrenal mass with enhancing periphery, also suspicious for metastasis, and borderline splenomegaly. PAST MEDICAL HISTORY: Hypertension, paroxysmal atrial fibrillation, and cancer above. PAST SURGICAL HISTORY: None noted. MEDICATIONS: Aspirin, Dulcolax, ferrous sulfate, Raymond, metoprolol, Zyprexa, Xarelto, and Desyrel. ALLERGIES: Lasix. SOCIAL HISTORY: No alcohol, tobacco, or illicit drug use. FAMILY HISTORY: Noncontributory. REVIEW OF SYSTEMS: CONSTITUTIONAL: No fevers, chills, or night sweats. SKIN: No rashes, bumps, or itching. HEENT: No headache, hearing or vision changes. BREASTS: No lumps, pain, or discharge. PULMONARY: No cough, sputum, or shortness of breath. GASTROINTESTINAL: No nausea, vomiting, or diarrhea. GENITOURINARY: No dysuria, frequency, or urgency. MUSCULOSKELETAL: No joint swelling, muscle pain, or trauma. PHYSICAL EXAMINATION: VITAL SIGNS: Reviewed. GENERAL: No acute distress. PULMONARY: Decreased breath sounds. CARDIOVASCULAR: Regular rate. No S3 or S4. ABDOMEN: Soft, nontender, and nondistended. EXTREMITIES: No cyanosis, swelling, or edema noted. LABORATORY DATA: Labs have been reviewed. Hemoglobin 7.5, hematocrit 25, and platelets 436,000. ASSESSMENT AND RECOMMENDATIONS: 1. Renal cell carcinoma with osseous metastasis including T12 vertebral compression fracture. At this time recommend to obtain tumor markers as well as a CT-guided biopsy and the patient may be a candidate for an oral drug such as sunitinib, also sorafenib and recommend to obtain again a CT-guided biopsy with primary doctor . 2. Anemia of chronic disease. Obtain ferritin level. 3. Bilateral pleural effusion, parapneumonic versus versus malignancy. 4. T12 compression fracture. 5. Atrial fibrillation. 6. Hypertension. 7. Colonoscopy pending. I appreciate the consultation. Chilo Sidhu M.D. DR: ROLO JOB#: [id number] CC:
[2017-05-02 08:00] VITALS: BP 135/73
[2017-05-02] MEDS: Metoprolol Tartrate 50mg tab ORAL SCH ×2 (08:45→21:32)
[2017-05-02] MEDS: HYDROcodone/Acetamin 10/325 tab ORAL PRN (08:45)
[2017-05-02] MEDS: Sertraline 50mg tab ORAL SCH (08:46)
[2017-05-02] MEDS: Pantoprazole Inj IVP SCH ×2 (08:46→21:33)
[2017-05-02] MEDS: Heparin 5000 units/ml inj SUBQ SCH ×2 (08:47→21:35)
[2017-05-02] MEDS: Piperacillin/Tazobactam 3.375 GM in NS 110 ML IVPB SCH ×2 (08:50→16:24)
--- NOTE | 2017-05-02 10:48 | GI Progress Note ---
Assessment/Plan Problems: (1) Anemia ICD Codes: D64.9 - Anemia, unspecified SNOMED: 604735804 Qualifiers: Qualified Codes: D64.9 - Anemia, unspecified (2) GI bleed ICD Codes: K92.2 - Gastrointestinal hemorrhage, unspecified SNOMED: 48476600 Status: unchanged Status Narrative Discussed with Dr. Milner. Assessment/Plan s/p EGD fu biopsy results stool ob>>> negative x 2 iv iron fu H&H prn blood transfusion outpatient colonoscopy Subjective Gastrointestinal/Abdominal: Reports: no symptoms Objective Last 24 Hour Vital Signs Date Time Temp Pulse Resp B/P (MAP) Pulse Ox O2 Delivery O2 Flow Rate FiO2 05/02/17 08:45 109 135/73 05/02/17 08:00 93 05/02/17 06:29 112/53 05/02/17 04:00 98.0 81 18 130/59 97 Nasal Cannula 2.0 98.0 05/02/17 04:00 94 05/02/17 00:00 78 05/02/17 00:00 98.2 84 19 135/63 96 Nasal Cannula 2.0 98.2 05/01/17 22:14 113/62 05/01/17 20:50 99 131/65 05/01/17 20:00 96.3 99 20 131/65 96 Nasal Cannula 2.0 96.3 05/01/17 20:00 89 05/01/17 19:18 Nasal Cannula 2.0 28 05/01/17 19:18 74 18 Nasal Cannula 2.0 28 05/01/17 19:18 95 Nasal Cannula 2.0 28 05/01/17 16:00 83 05/01/17 16:00 97.4 79 19 110/58 96 Nasal Cannula 2.0 97.4 05/01/17 15:59 115/68 05/01/17 12:00 97.8 59 19 115/68 98 Nasal Cannula 2.0 97.8 05/01/17 12:00 61 Intake and Output 05/01/17 05/02/17 18:59 06:59 Intake Total 420 ml 110.0 ml Balance 420 ml 110.0 ml Intake Oral 420 ml IV Total 110.0 ml # Voids 3 3 Laboratory Tests Test 05/01/17 14:55 05/01/17 16:00 05/01/17 22:00 05/02/17 04:00 Body Fluid Source Pending Body Fluid Volume Pending Body Fluid pH 8.0 Body Fluid Glucose Pending Body Fluid Total Protein Pending Body Fluid Lactate Dehydrogenase Pending Prothrombin Time 12.9 SEC (9.30-11.50) H Prothromb Time International Ratio 1.2 (0.9-1.1) H Activated Partial Thromboplast Time 39 SEC (23-33) H Urine Total Protein Pending Urine Albumin (%) Pending Urine Ycjbf-3-Ejrdarcuc (%) Pending Urine Stoey-7-Rbimilqkt (%) Pending Urine Beta-Globulin (%) Pending Urine Gamma Globulin (%) Pending Ur Protein Electrophoresis M-Chris Pending Urine Protein Electrophoresis Intrp Pending Total Protein (PEP) Pending Albumin (PEP) Pending Globulin (PEP) Pending Albumin/Globulin Ratio Pending Awbpo-1-Gqrisxpxb Pending Fvdpv-0-Jvgzeqhjx Pending Beta Globulins Pending Beta Gamma Globulin Pending PEP Abnormal Protein Bands Pending Protein Electrophoresis Interpret Pending Microbiology Date/Time Source Procedure Growth Status 05/01/17 14:55 Body Fluid Pleura Gram Stain - Final Resulted 05/01/17 14:55 Body Fluid Pleura Body Fluid Culture - Preliminary NO GROWTH AFTER 24 HOURS Resulted Height (Feet): 5 Height (Inches): 10.00 Weight (Pounds): 229 General Appearance: WD/WN, no apparent distress, alert Cardiovascular: normal rate Respiratory/Chest: normal breath sounds, no respiratory distress Abdominal Exam: normal bowel sounds, non tender, soft Extremities: normal range of motion, non-tender Jammie Cote N.P. May 02, 2017 10:48
[2017-05-02 12:00] VITALS: BP 120/67
--- NOTE | 2017-05-02 14:39 | General Progress Note ---
Assessment/Plan Problem List: (1) HTN (hypertension) ICD Codes: I10 - Essential (primary) hypertension SNOMED: 29055383 (2) Hypoalbuminemia ICD Codes: E88.09 - Other disorders of plasma-protein metabolism, not elsewhere classified SNOMED: 789559886 (3) Anemia ICD Codes: D64.9 - Anemia, unspecified SNOMED: 433983719 Qualifiers: Qualified Codes: D64.9 - Anemia, unspecified (4) Pneumonia ICD Codes: J18.9 - Pneumonia, unspecified organism SNOMED: 947562770 Qualifiers: Qualified Codes: J18.1 - Lobar pneumonia, unspecified organism (5) COPD (chronic obstructive pulmonary disease) ICD Codes: J44.9 - Chronic obstructive pulmonary disease, unspecified SNOMED: 29180072 (6) Urinary tract infection ICD Codes: N39.0 - Urinary tract infection, site not specified SNOMED: 42816449 (7) Shortness of breath ICD Codes: R06.02 - Shortness of breath SNOMED: 637446156 (8) Renal cancer ICD Codes: C64.9 - Malignant neoplasm of unspecified kidney, except renal pelvis SNOMED: 771763954 Status: unchanged Assessment/Plan ot pt diet abx cbc bmp am heme and neph eval ltach eval Subjective Constitutional: Reports: weakness Allergies: Coded Allergies: FUROSEMIDE (Verified Allergy, Unknown, 04/25/17) All Systems: reviewed and negative except above Subjective o2nc calm in bed sl confused Objective Last 24 Hour Vital Signs Date Time Temp Pulse Resp B/P (MAP) Pulse Ox O2 Delivery O2 Flow Rate FiO2 05/02/17 12:00 97.8 70 22 120/67 95 97.8 05/02/17 08:50 76 18 Nasal Cannula 2.0 28 05/02/17 08:50 Nasal Cannula 2.0 28 05/02/17 08:50 96 Nasal Cannula 2.0 28 05/02/17 08:45 109 135/73 05/02/17 08:00 93 05/02/17 08:00 97.8 109 21 135/73 94 97.8 05/02/17 06:29 112/53 05/02/17 04:00 98.0 81 18 130/59 97 Nasal Cannula 2.0 98.0 05/02/17 04:00 94 05/02/17 00:00 78 05/02/17 00:00 98.2 84 19 135/63 96 Nasal Cannula 2.0 98.2 05/01/17 22:14 113/62 05/01/17 20:50 99 131/65 05/01/17 20:00 96.3 99 20 131/65 96 Nasal Cannula 2.0 96.3 05/01/17 20:00 89 05/01/17 19:18 Nasal Cannula 2.0 28 05/01/17 19:18 74 18 Nasal Cannula 2.0 28 05/01/17 19:18 95 Nasal Cannula 2.0 28 05/01/17 16:00 83 05/01/17 16:00 97.4 79 19 110/58 96 Nasal Cannula 2.0 97.4 05/01/17 15:59 115/68 Intake and Output 05/01/17 05/02/17 19:00 07:00 Intake Total 420 ml 110.0 ml Balance 420 ml 110.0 ml Intake Oral 420 ml IV Total 110.0 ml # Voids 3 3 Laboratory Tests 05/01/17 14:55: Body Fluid Source [Pending], Body Fluid Volume [Pending], Body Fluid pH 8.0, Body Fluid Glucose 97, Body Fluid Total Protein 3.6, Body Fluid Albumin [Pending ], Body Fluid Lactate Dehydrogenase [Pending] 05/01/17 16:00: Prothrombin Time 12.9H, Prothromb Time International Ratio 1.2H, Activated Partial Thromboplast Time 39H 05/01/17 22:00: Urine Total Protein [Pending], Urine Albumin (%) [Pending], Urine Alpha-1- Globulins (%) [Pending], Urine Dtdnw-4-Kwscwjebm (%) [Pending], Urine Beta- Globulin (%) [Pending], Urine Gamma Globulin (%) [Pending], Ur Protein Electrophoresis M-Chris [Pending], Urine Protein Electrophoresis Intrp [Pending] 05/02/17 04:00: Total Protein (PEP) [Pending], Albumin (PEP) [Pending], Globulin (PEP) [Pending] , Albumin/Globulin Ratio [Pending], Ufktb-8-Nazhkqsxe [Pending], Alpha-2- Globulins [Pending], Beta Globulins [Pending], Beta Gamma Globulin [Pending], PEP Abnormal Protein Bands [Pending], Protein Electrophoresis Interpret [Pending ] Height (Feet): 5 Height (Inches): 10.00 Weight (Pounds): 229 General Appearance: lethargic EENT: normal ENT inspection Neck: normal alignment Cardiovascular: normal peripheral pulses, normal rate, regular rhythm Respiratory/Chest: decreased breath sounds Abdomen: normal bowel sounds, non tender, soft Extremities: normal inspection Edema: no edema noted Arm (L), no edema noted Arm (R), no edema noted Leg (L), no edema noted Leg (R), no edema noted Pedal (L), no edema noted Pedal (R), no edema noted Generalized Neurologic: motor weakness Skin: normal pigmentation, warm/dry ANNA LIRA May 02, 2017 14:39
--- NOTE | 2017-05-02 14:58 | Pulmonology Progress Note ---
Assessment/Plan Problems: (1) Pneumonia (2) Pleural effusion (3) COPD (chronic obstructive pulmonary disease) (4) Arrhythmia (5) Anemia (6) Urinary tract infection (7) History of smoking Assessment/Plan looks comfortable svt controlled sinus tach with PAC's, cardiology following respiratory treatment US of chest to assess the pleural effusion, reviewed, equal size, iv abx check electrolytes check labs in am all notes reviewed. colnoscopy in am ct reviewed, metastatic renal cancer, social service consult to find family members consider changing code status transfer to med/surg if ok with cardiology Subjective ROS Limited/Unobtainable: No Constitutional: Reports: no symptoms HEENT: Repors: no symptoms Respiratory: Reports: no symptoms Allergies: Coded Allergies: FUROSEMIDE (Verified Allergy, Unknown, 04/25/17) Objective Last 24 Hour Vital Signs Date Time Temp Pulse Resp B/P (MAP) Pulse Ox O2 Delivery O2 Flow Rate FiO2 05/02/17 12:00 97.8 70 22 120/67 95 97.8 05/02/17 08:50 76 18 Nasal Cannula 2.0 28 05/02/17 08:50 Nasal Cannula 2.0 28 05/02/17 08:50 96 Nasal Cannula 2.0 28 05/02/17 08:45 109 135/73 05/02/17 08:00 93 05/02/17 08:00 97.8 109 21 135/73 94 97.8 05/02/17 06:29 112/53 05/02/17 04:00 98.0 81 18 130/59 97 Nasal Cannula 2.0 98.0 05/02/17 04:00 94 05/02/17 00:00 78 05/02/17 00:00 98.2 84 19 135/63 96 Nasal Cannula 2.0 98.2 05/01/17 22:14 113/62 05/01/17 20:50 99 131/65 05/01/17 20:00 96.3 99 20 131/65 96 Nasal Cannula 2.0 96.3 05/01/17 20:00 89 05/01/17 19:18 Nasal Cannula 2.0 28 05/01/17 19:18 74 18 Nasal Cannula 2.0 28 05/01/17 19:18 95 Nasal Cannula 2.0 28 05/01/17 16:00 83 05/01/17 16:00 97.4 79 19 110/58 96 Nasal Cannula 2.0 97.4 05/01/17 15:59 115/68 Intake and Output 05/01/17 05/02/17 19:00 07:00 Intake Total 420 ml 110.0 ml Balance 420 ml 110.0 ml Intake Oral 420 ml IV Total 110.0 ml # Voids 3 3 Objective General Appearance: cachetic HEENT: normocephalic Neck: non-tender, normal alignment Respiratory/Chest: chest wall non-tender, lungs clear Breasts: no masses Cardiovascular/Chest: normal peripheral pulses Abdomen: normal bowel sounds, non tender, no organomegaly Extremities: normal range of motion Skin Exam: normal pigmentation Microbiology Date/Time Source Procedure Growth Status 05/01/17 14:55 Body Fluid Pleura Gram Stain - Final Resulted 05/01/17 14:55 Body Fluid Pleura Body Fluid Culture - Preliminary NO GROWTH AFTER 24 HOURS Resulted Laboratory Tests 05/01/17 16:00: Prothrombin Time 12.9H, Prothromb Time International Ratio 1.2H, Activated Partial Thromboplast Time 39H 05/01/17 22:00: Urine Total Protein [Pending], Urine Albumin (%) [Pending], Urine Alpha-1- Globulins (%) [Pending], Urine Hhxdg-6-Zipsgwyyf (%) [Pending], Urine Beta- Globulin (%) [Pending], Urine Gamma Globulin (%) [Pending], Ur Protein Electrophoresis M-Chris [Pending], Urine Protein Electrophoresis Intrp [Pending] 05/02/17 04:00: Total Protein (PEP) [Pending], Albumin (PEP) [Pending], Globulin (PEP) [Pending] , Albumin/Globulin Ratio [Pending], Jskqn-0-Rlgozfuum [Pending], Alpha-2- Globulins [Pending], Beta Globulins [Pending], Beta Gamma Globulin [Pending], PEP Abnormal Protein Bands [Pending], Protein Electrophoresis Interpret [Pending ] Current Medications Medications (Trade) Dose Ordered Sig/Juan Pablo Route PRN Reason Start Time Stop Time Status Last Admin Dose Admin Acetaminophen (Tylenol) 650 mg Q4H PRN ORAL Mild Pain/Temp > 100.5 04/25/17 18:45 05/25/17 18:44 05/01/17 04:27 Acetaminophen/ Hydrocodone Bitart ([place] 10/325) 1 tab Q6HR PRN ORAL For Pain 04/25/17 22:15 05/02/17 22:14 05/02/17 08:45 Heparin Sodium (Porcine) (Heparin 5000 units/ml) 5,000 units EVERY 12 HOURS SUBQ 04/25/17 21:00 05/25/17 20:59 05/02/17 08:47 Hydralazine HCl (Apresoline) 25 mg Q8HR ORAL 04/27/17 22:30 05/27/17 22:29 05/02/17 06:29 Iron Sucrose 100 mg/Sodium Chloride 60 ml @ 240 mls/hr BEDTIME IV 04/29/17 21:00 05/03/17 21:14 04/30/17 21:00 Metoprolol Tartrate (Lopressor) 50 mg Q12HR ORAL 04/28/17 09:00 05/28/17 08:59 05/02/17 08:45 Pantoprazole (Protonix) 40 mg Q12HR IVP 04/27/17 11:00 05/27/17 10:59 05/02/17 08:46 Piperacillin Sod/ Tazobactam Sod 3.375 gm/Sodium Chloride 110 ml @ 27.5 mls/hr Q8HR@0000,0800,1600 IVPB 04/29/17 16:00 05/03/17 23:59 05/02/17 08:50 Sertraline HCl (Zoloft) 25 mg DAILY ORAL 04/28/17 09:00 05/28/17 08:59 05/02/17 08:46 Iker Avina MD May 02, 2017 14:58
--- NOTE | 2017-05-02 15:43 | Nephrology Progress Note ---
Assessment/Plan Assessment 1. Proteinuria. 2. Fluid overload. 3. Hypertension. 4. Atrial fibrillation. 5.renal mass vs multiple cyst 6.adrenal mass 7.pleural effusion Plan plan fallow up with urine study monitoring renal function MRI of abdomen to evaluate renal mass may need biopsy monitoring electrolyte closely avoid NSAID Subjective Constitutional: Reports: no symptoms HEENT: Reports: no symptoms Genitourinary: Reports: no symptoms Neurologic/Psychiatric: Reports: no symptoms Subjective no acute events no complaints Objective Objective Last 24 Hour Vital Signs Date Time Temp Pulse Resp B/P (MAP) Pulse Ox O2 Delivery O2 Flow Rate FiO2 05/02/17 12:00 97.8 70 22 120/67 95 97.8 05/02/17 08:50 76 18 Nasal Cannula 2.0 28 05/02/17 08:50 Nasal Cannula 2.0 28 05/02/17 08:50 96 Nasal Cannula 2.0 28 05/02/17 08:45 109 135/73 05/02/17 08:00 93 05/02/17 08:00 97.8 109 21 135/73 94 97.8 05/02/17 06:29 112/53 05/02/17 04:00 98.0 81 18 130/59 97 Nasal Cannula 2.0 98.0 05/02/17 04:00 94 05/02/17 00:00 78 05/02/17 00:00 98.2 84 19 135/63 96 Nasal Cannula 2.0 98.2 05/01/17 22:14 113/62 05/01/17 20:50 99 131/65 05/01/17 20:00 96.3 99 20 131/65 96 Nasal Cannula 2.0 96.3 05/01/17 20:00 89 05/01/17 19:18 Nasal Cannula 2.0 28 05/01/17 19:18 74 18 Nasal Cannula 2.0 28 05/01/17 19:18 95 Nasal Cannula 2.0 28 05/01/17 16:00 83 05/01/17 16:00 97.4 79 19 110/58 96 Nasal Cannula 2.0 97.4 05/01/17 15:59 115/68 Intake and Output 05/01/17 05/02/17 19:00 07:00 Intake Total 420 ml 110.0 ml Balance 420 ml 110.0 ml Intake Oral 420 ml IV Total 110.0 ml # Voids 3 3 Laboratory Tests 05/01/17 16:00: Prothrombin Time 12.9H, Prothromb Time International Ratio 1.2H, Activated Partial Thromboplast Time 39H 05/01/17 22:00: Urine Total Protein [Pending], Urine Albumin (%) [Pending], Urine Alpha-1- Globulins (%) [Pending], Urine Roueg-0-Zkvtbipik (%) [Pending], Urine Beta- Globulin (%) [Pending], Urine Gamma Globulin (%) [Pending], Ur Protein Electrophoresis M-Chris [Pending], Urine Protein Electrophoresis Intrp [Pending] 05/02/17 04:00: Total Protein (PEP) [Pending], Albumin (PEP) [Pending], Globulin (PEP) [Pending] , Albumin/Globulin Ratio [Pending], Jhdmi-6-Tfnvtanhi [Pending], Alpha-2- Globulins [Pending], Beta Globulins [Pending], Beta Gamma Globulin [Pending], PEP Abnormal Protein Bands [Pending], Protein Electrophoresis Interpret [Pending ] Height (Feet): 5 Height (Inches): 10.00 Weight (Pounds): 229 Objective HEAD AND NECK: No JVP. No LAD. No thyromegaly. Head is atraumatic and normocephalic. Extraocular movements intact. LUNGS: Clear to auscultation. CARDIAC: Regular rate and rhythm. S1 and S2. No murmur. No rub. ABDOMEN: Soft, nontender, and nondistended. EXTREMITIES: No edema. No clubbing. No cyanosis. PROMISE AZUL May 02, 2017 15:43
[2017-05-02 16:00] VITALS: BP 129/65
[2017-05-02 20:00] VITALS: BP 147/79
[2017-05-02] MEDS: Iron Sucrose 100 MG in NS 55 ML IV SCH (21:32)
--- NOTE | 2017-05-02 23:15 | General Progress Note ---
Assessment/Plan Assessment/Plan Assessment and Recs: 1. Renal cell carcinoma stage IV with osseous metastasis including T12 vertebral compression fracture. At this time recommend to obtain tumor markers as well as a CT-guided biopsy to make a definitive diagnosis --> have discussed with patient and he has refused/declined a ct-guided biopsy at this time, will continue to recommend to make an accurate diagnosis --> most likely is renal cell carcinoma given clinical findings, given very poor performance status, recommend snf placement and palliative services/ comfort care measures, hospice care --> have discussed above with primary doctor 2. Anemia of chronic disease. Obtain ferritin level. 3. Bilateral pleural effusion, parapneumonic versus versus malignancy. 4. T12 compression fracture. 5. Atrial fibrillation. 6. Hypertension. 7. Colonoscopy pending, per gi Subjective HEENT: Denies: no symptoms, eye pain, blurred vision, tearing, double vision, ear pain, ear discharge, nose pain, nose congestion, throat pain, throat swelling, mouth pain, mouth swelling, other Cardiovascular: Denies: no symptoms, chest pain, edema, irregular heart rate, lightheadedness, palpitations, syncope, other Respiratory: Denies: no symptoms, cough, orthopnea, shortness of breath, SOB with excertion, SOB at rest, sputum, stridor, wheezing, other Gastrointestinal/Abdominal: Denies: no symptoms, abdomen distended, abdominal pain, black stools, tarry stools, blood in stool, constipated, diarrhea, difficulty swallowing, nausea, poor appetite, poor fluid intake, rectal bleeding , vomiting, other Genitourinary: Denies: no symptoms, burning, discharge, frequency, flank pain, hematuria, incontinence, pain, urgency, other Hematologic/Lymphatic: Denies: no symptoms, anemia, easy bleeding, easy bruising, other Allergies: Coded Allergies: FUROSEMIDE (Verified Allergy, Unknown, 04/25/17) Subjective no envets, refusing biopsy Objective Last 24 Hour Vital Signs Date Time Temp Pulse Resp B/P (MAP) Pulse Ox O2 Delivery O2 Flow Rate FiO2 05/02/17 21:33 147/79 05/02/17 21:32 98 147/79 05/02/17 20:14 Room Air 05/02/17 20:00 98.6 98 20 147/79 92 98.6 05/02/17 20:00 94 Nasal Cannula 2.0 28 05/02/17 20:00 Nasal Cannula 2.0 28 05/02/17 16:00 97.0 75 21 129/65 92 97.0 05/02/17 12:00 68 05/02/17 12:00 97.8 70 22 120/67 95 97.8 05/02/17 08:50 76 18 Nasal Cannula 2.0 28 05/02/17 08:50 Nasal Cannula 2.0 28 05/02/17 08:50 96 Nasal Cannula 2.0 28 05/02/17 08:45 109 135/73 05/02/17 08:00 93 05/02/17 08:00 97.8 109 21 135/73 94 97.8 05/02/17 06:29 112/53 05/02/17 04:00 98.0 81 18 130/59 97 Nasal Cannula 2.0 98.0 05/02/17 04:00 94 05/02/17 00:00 78 05/02/17 00:00 98.2 84 19 135/63 96 Nasal Cannula 2.0 98.2 Intake and Output 05/01/17 05/02/17 19:00 07:00 Intake Total 420 ml 110.0 ml Balance 420 ml 110.0 ml Intake Oral 420 ml IV Total 110.0 ml # Voids 3 3 Laboratory Tests 05/02/17 04:00: Total Protein (PEP) [Pending], Albumin (PEP) [Pending], Globulin (PEP) [Pending] , Albumin/Globulin Ratio [Pending], Wfiem-3-Drplhhsff [Pending], Alpha-2- Globulins [Pending], Beta Globulins [Pending], Beta Gamma Globulin [Pending], PEP Abnormal Protein Bands [Pending], Protein Electrophoresis Interpret [Pending ] Height (Feet): 5 Height (Inches): 10.00 Weight (Pounds): 229 General Appearance: no apparent distress EENT: PERRL/EOMI Neck: normal alignment Cardiovascular: regular rhythm Respiratory/Chest: lungs clear Abdomen: non tender Extremities: normal range of motion Edema: no edema noted Leg (L), no edema noted Leg (R) Edema: mild edema Neurologic: alert Skin: warm/dry Chilo Sidhu MD May 02, 2017 23:15
[2017-05-03] VITALS: BP 134/82
[2017-05-03] MEDS: Piperacillin/Tazobactam 3.375 GM in NS 110 ML IVPB SCH ×2 (00:05→08:35)
--- NOTE | 2017-05-03 02:31 | Progress Note ---
DATE: 05/02/2017 NOTE: POOR AUDIO SUBJECTIVE: This is a 62-year-old male patient with shortness of breath, has been having slight agitation, irritability, very confused, disorganized, mood labile, confused, also depression. That is why his attending has requested daily psychiatric consultation. MENTAL STATUS EXAMINATION: This is a 62-year-old male with psychomotor retardation. Affect is guarded and restricted. Thought process disorganized and illogical. Denies any current suicidal or homicidal thoughts. Insight and judgment is poor. DIAGNOSIS: Major depression with psychotic features, rule out severe dementia. PLAN: Continue him on Zoloft stabilize his mood. stabilize his mood. Provided 18 to 20 minutes of supportive therapy to stabilize his mood. Continue Zyprexa 5 mg twice a day at bedtime. Seen and assessed at bedside. Chart is reviewed and discussed with staff. Jazmyn Dahl M.D. DR: BECKIE JOB#: [id number] CC:
[2017-05-03 04:00] VITALS: BP 133/74
[2017-05-03] MEDS: HydrALAZINE 25mg tab ORAL SCH ×3 (06:00→21:02)
[2017-05-03 08:00] VITALS: BP 130/68
[2017-05-03] MEDS: Sertraline 50mg tab ORAL SCH (08:36)
[2017-05-03] MEDS: HYDROcodone/Acetamin 10/325 tab ORAL PRN (08:36)
[2017-05-03] MEDS: Metoprolol Tartrate 50mg tab ORAL SCH ×2 (08:36→21:02)
[2017-05-03] MEDS: Pantoprazole Inj IVP SCH ×2 (08:37→21:01)
[2017-05-03] MEDS: Heparin 5000 units/ml inj SUBQ SCH ×2 (08:38→21:04)
[2017-05-03 08:40] LABS: HEMATOCRIT 23.8 % (42.0-52.0); HEMOGLOBIN 7.5 G/DL (14.2-18.0); MEAN CORPUSCULAR VOLUME 71 FL (80-99); PLATELET COUNT 413 K/UL (150-450); RED BLOOD COUNT 3.34 M/UL (4.70-6.10); RED CELL DISTRIBUTION WIDTH 17.3 % (11.6-14.8); WHITE BLOOD COUNT 15.1 K/UL (4.8-10.8)
[2017-05-03 09:20] LABS: ANION GAP 10 mmol/L (5-15); BLOOD UREA NITROGEN 8 mg/dL (7-18); CALCIUM 9.5 MG/DL (8.5-10.1); CARBON DIOXIDE 27 MMOL/L (21-32); CHLORIDE 101 MMOL/L (98-107); CREATININE 0.5 MG/DL (0.55-1.30); POTASSIUM 3.6 MMOL/L (3.5-5.1); SODIUM 138 MMOL/L (136-145)
--- NOTE | 2017-05-03 11:10 | GI Progress Note ---
Assessment/Plan Problems: (1) Anemia ICD Codes: D64.9 - Anemia, unspecified SNOMED: 340400856 Qualifiers: Qualified Codes: D64.9 - Anemia, unspecified (2) GI bleed ICD Codes: K92.2 - Gastrointestinal hemorrhage, unspecified SNOMED: 47010474 Status: unchanged Status Narrative Discussed with Dr. Milner. Assessment/Plan s/p EGD fu biopsy results >> negative for H. Pylori stool ob>>> negative x 2 bioethics consulted for renal CA mets iv iron fu H&H prn blood transfusion outpatient colonoscopy Subjective Subjective limited Objective Last 24 Hour Vital Signs Date Time Temp Pulse Resp B/P (MAP) Pulse Ox O2 Delivery O2 Flow Rate FiO2 05/03/17 09:35 98.8 05/03/17 08:36 85 131/68 05/03/17 08:36 98.8 05/03/17 06:00 134/82 05/03/17 04:00 98.8 79 20 133/74 100 98.8 05/03/17 00:00 98.1 83 18 134/82 100 98.1 05/02/17 21:33 147/79 05/02/17 21:32 98 147/79 05/02/17 20:14 Room Air 05/02/17 20:00 98.6 98 20 147/79 92 98.6 05/02/17 20:00 94 Nasal Cannula 2.0 28 05/02/17 20:00 Nasal Cannula 2.0 28 05/02/17 16:00 97.0 75 21 129/65 92 97.0 05/02/17 12:00 68 05/02/17 12:00 97.8 70 22 120/67 95 97.8 Intake and Output 05/02/17 05/03/17 19:00 07:00 Intake Total 170.0 ml Balance 170.0 ml IV Total 170.0 ml # Voids 1 5 # Bowel Movements 1 Laboratory Tests Test 05/03/17 05:30 05/03/17 07:20 Stool Occult Blood Pending White Blood Count 15.1 K/UL (4.8-10.8) H Red Blood Count 3.34 M/UL (4.70-6.10) L Hemoglobin 7.5 G/DL (14.2-18.0) L Hematocrit 23.8 % (42.0-52.0) L Mean Corpuscular Volume 71 FL (80-99) L Mean Corpuscular Hemoglobin 22.5 PG (27.0-31.0) L Mean Corpuscular Hemoglobin Concent 31.6 G/DL (32.0-36.0) L Red Cell Distribution Width 17.3 % (11.6-14.8) H Platelet Count 413 K/UL (150-450) Mean Platelet Volume 5.0 FL (6.5-10.1) L Neutrophils (%) (Auto) % (45.0-75.0) Lymphocytes (%) (Auto) % (20.0-45.0) Monocytes (%) (Auto) % (1.0-10.0) Eosinophils (%) (Auto) % (0.0-3.0) Basophils (%) (Auto) % (0.0-2.0) Differential Total Cells Counted 100 Neutrophils % (Manual) 79 % (45-75) H Lymphocytes % (Manual) 14 % (20-45) L Monocytes % (Manual) 7 % (1-10) Eosinophils % (Manual) 0 % (0-3) Basophils % (Manual) 0 % (0-2) Band Neutrophils 0 % (0-8) Platelet Estimate Adequate Platelet Morphology Normal Polychromasia 1+ Hypochromasia 1+ Anisocytosis 1+ Microcytosis 1+ Sodium Level 138 MMOL/L (136-145) Potassium Level 3.6 MMOL/L (3.5-5.1) Chloride Level 101 MMOL/L (98-107) Carbon Dioxide Level 27 MMOL/L (21-32) Anion Gap 10 mmol/L (5-15) Blood Urea Nitrogen 8 mg/dL (7-18) Creatinine 0.5 MG/DL (0.55-1.30) L Estimat Glomerular Filtration Rate > 60 mL/min (>60) Glucose Level 78 MG/DL (74-106) Calcium Level 9.5 MG/DL (8.5-10.1) Height (Feet): 5 Height (Inches): 10.00 Weight (Pounds): 229 General Appearance: alert Cardiovascular: normal rate Abdominal Exam: normal bowel sounds, non tender, soft Jammie Cote N.P. May 03, 2017 11:10
[2017-05-03 11:57] VITALS: BP 118/63
--- NOTE | 2017-05-03 12:32 | General Progress Note ---
Progress Note Progress Note Pt has a long standing history psychiatric disease and is not able to make a decisions for his care. He is not competent. He is diagnosed to have metastatic renal cancer with mets to bones specially to spine, causing multiple fractures. At this point the comfort care is the best option to treat patient' s end-of -life needs. Pts sister agree with hospice care and will sign the necessary documents. kIer Avina MD May 03, 2017 12:32
--- NOTE | 2017-05-03 14:39 | Nephrology Progress Note ---
Assessment/Plan Assessment 1. Proteinuria. 2. Fluid overload. 3. Hypertension. 4. Atrial fibrillation. 5.renal mass vs multiple cyst 6.adrenal mass 7.pleural effusion Plan plan fallow up with urine study monitoring renal function MRI of abdomen to evaluate renal mass may need biopsy monitoring electrolyte closely avoid NSAID Subjective Subjective no acute events no complaints Objective Objective Last 24 Hour Vital Signs Date Time Temp Pulse Resp B/P (MAP) Pulse Ox O2 Delivery O2 Flow Rate FiO2 05/03/17 11:57 97.7 75 18 118/63 95 97.7 05/03/17 09:35 98.8 05/03/17 08:36 85 131/68 05/03/17 08:36 98.8 05/03/17 08:00 97.0 88 18 130/68 99 97.0 05/03/17 06:00 134/82 05/03/17 04:00 98.8 79 20 133/74 100 98.8 05/03/17 00:00 98.1 83 18 134/82 100 98.1 05/02/17 21:33 147/79 05/02/17 21:32 98 147/79 05/02/17 20:14 Room Air 05/02/17 20:00 98.6 98 20 147/79 92 98.6 05/02/17 20:00 94 Nasal Cannula 2.0 28 05/02/17 20:00 Nasal Cannula 2.0 28 05/02/17 16:00 97.0 75 21 129/65 92 97.0 Intake and Output 05/02/17 05/03/17 19:00 07:00 Intake Total 170.0 ml Balance 170.0 ml IV Total 170.0 ml # Voids 1 5 # Bowel Movements 1 Laboratory Tests 05/03/17 05:30: Stool Occult Blood Negative 05/03/17 07:20: White Blood Count 15.1H, Red Blood Count 3.34L, Hemoglobin 7.5L, Hematocrit 23.8L, Mean Corpuscular Volume 71L, Mean Corpuscular Hemoglobin 22.5L, Mean Corpuscular Hemoglobin Concent 31.6L, Red Cell Distribution Width 17.3H, Platelet Count 413, Mean Platelet Volume 5.0L, Neutrophils (%) (Auto) , Lymphocytes (%) (Auto) , Monocytes (%) (Auto) , Eosinophils (%) (Auto) , Basophils (%) (Auto) , Differential Total Cells Counted 100, Neutrophils % ( Manual) 79H, Lymphocytes % (Manual) 14L, Monocytes % (Manual) 7, Eosinophils % ( Manual) 0, Basophils % (Manual) 0, Band Neutrophils 0, Platelet Estimate Adequate, Platelet Morphology Normal, Polychromasia 1+, Hypochromasia 1+, Anisocytosis 1+, Microcytosis 1+, Sodium Level 138, Potassium Level 3.6, Chloride Level 101, Carbon Dioxide Level 27, Anion Gap 10, Blood Urea Nitrogen 8 , Creatinine 0.5L, Estimat Glomerular Filtration Rate > 60, Glucose Level 78, Calcium Level 9.5 Height (Feet): 5 Height (Inches): 10.00 Weight (Pounds): 229 Objective HEAD AND NECK: No JVP. No LAD. No thyromegaly. Head is atraumatic and normocephalic. Extraocular movements intact. LUNGS: Clear to auscultation. CARDIAC: Regular rate and rhythm. S1 and S2. No murmur. No rub. ABDOMEN: Soft, nontender, and nondistended. EXTREMITIES: No edema. No clubbing. No cyanosis. PROMISE AZUL May 03, 2017 14:39
--- NOTE | 2017-05-03 14:51 | General Progress Note ---
Assessment/Plan Problem List: (1) HTN (hypertension) ICD Codes: I10 - Essential (primary) hypertension SNOMED: 57722970 (2) Hypoalbuminemia ICD Codes: E88.09 - Other disorders of plasma-protein metabolism, not elsewhere classified SNOMED: 150355784 (3) Anemia ICD Codes: D64.9 - Anemia, unspecified SNOMED: 622370509 Qualifiers: Qualified Codes: D64.9 - Anemia, unspecified (4) Pneumonia ICD Codes: J18.9 - Pneumonia, unspecified organism SNOMED: 668890229 Qualifiers: Qualified Codes: J18.1 - Lobar pneumonia, unspecified organism (5) COPD (chronic obstructive pulmonary disease) ICD Codes: J44.9 - Chronic obstructive pulmonary disease, unspecified SNOMED: 46887545 (6) Urinary tract infection ICD Codes: N39.0 - Urinary tract infection, site not specified SNOMED: 63726161 (7) Shortness of breath ICD Codes: R06.02 - Shortness of breath SNOMED: 027410963 (8) Renal cancer ICD Codes: C64.9 - Malignant neoplasm of unspecified kidney, except renal pelvis SNOMED: 581017911 Status: unchanged Assessment/Plan ot pt diet abx cbc dc w hospice Subjective Constitutional: Reports: weakness Allergies: Coded Allergies: FUROSEMIDE (Verified Allergy, Unknown, 04/25/17) All Systems: reviewed and negative except above Subjective o2nc calm in bed sl confused Objective Last 24 Hour Vital Signs Date Time Temp Pulse Resp B/P (MAP) Pulse Ox O2 Delivery O2 Flow Rate FiO2 05/03/17 14:00 118/63 05/03/17 11:57 97.7 75 18 118/63 95 97.7 05/03/17 09:35 98.8 05/03/17 08:36 85 131/68 05/03/17 08:36 98.8 05/03/17 08:00 97.0 88 18 130/68 99 97.0 05/03/17 06:00 134/82 05/03/17 04:00 98.8 79 20 133/74 100 98.8 05/03/17 00:00 98.1 83 18 134/82 100 98.1 05/02/17 21:33 147/79 05/02/17 21:32 98 147/79 05/02/17 20:14 Room Air 05/02/17 20:00 98.6 98 20 147/79 92 98.6 05/02/17 20:00 94 Nasal Cannula 2.0 28 05/02/17 20:00 Nasal Cannula 2.0 28 05/02/17 16:00 97.0 75 21 129/65 92 97.0 Intake and Output 05/02/17 05/03/17 19:00 07:00 Intake Total 170.0 ml Balance 170.0 ml IV Total 170.0 ml # Voids 1 5 # Bowel Movements 1 Laboratory Tests 05/03/17 05:30: Stool Occult Blood Negative 05/03/17 07:20: White Blood Count 15.1H, Red Blood Count 3.34L, Hemoglobin 7.5L, Hematocrit 23.8L, Mean Corpuscular Volume 71L, Mean Corpuscular Hemoglobin 22.5L, Mean Corpuscular Hemoglobin Concent 31.6L, Red Cell Distribution Width 17.3H, Platelet Count 413, Mean Platelet Volume 5.0L, Neutrophils (%) (Auto) , Lymphocytes (%) (Auto) , Monocytes (%) (Auto) , Eosinophils (%) (Auto) , Basophils (%) (Auto) , Differential Total Cells Counted 100, Neutrophils % ( Manual) 79H, Lymphocytes % (Manual) 14L, Monocytes % (Manual) 7, Eosinophils % ( Manual) 0, Basophils % (Manual) 0, Band Neutrophils 0, Platelet Estimate Adequate, Platelet Morphology Normal, Polychromasia 1+, Hypochromasia 1+, Anisocytosis 1+, Microcytosis 1+, Sodium Level 138, Potassium Level 3.6, Chloride Level 101, Carbon Dioxide Level 27, Anion Gap 10, Blood Urea Nitrogen 8 , Creatinine 0.5L, Estimat Glomerular Filtration Rate > 60, Glucose Level 78, Calcium Level 9.5 Height (Feet): 5 Height (Inches): 10.00 Weight (Pounds): 229 General Appearance: lethargic EENT: normal ENT inspection Neck: non-tender Cardiovascular: normal peripheral pulses, normal rate, regular rhythm Respiratory/Chest: chest wall non-tender, lungs clear, normal breath sounds Abdomen: normal bowel sounds, non tender, soft Extremities: normal inspection Edema: no edema noted Arm (L), no edema noted Arm (R), no edema noted Leg (L), no edema noted Leg (R), no edema noted Pedal (L), no edema noted Pedal (R), no edema noted Generalized Neurologic: motor weakness Skin: normal pigmentation, warm/dry ANNA LIRA May 03, 2017 14:51
[2017-05-03 16:00] VITALS: BP 125/77
--- NOTE | 2017-05-03 16:34 | Infectious Diseases Prog Note ---
Assessment/Plan Assessment/Plan SOB- PNA vs pulmonary edema, s/p rx -CT chest 05/01: Large left greater than right bilateral pleural effusions. Resultant compressive atelectasis of most of both lower lobes. T12 vertebral body compression/burst fracture deformity, as described, with posterior element involvement as well. Suspect that this is a pathologic fracture secondary to underlying osteolytic process. Posterolateral ninth rib deformity. Possibly just a healed fracture deformity, but complex appearance and some internal cortical discontinuity could indicate underlying osteolytic process. There is also a healed lateral left eighth rib fracture deformity -CXR 04/28: Persistent interstitial congestion. Suggestion of slight improvement of bilateral basilar hazy opacities, may indicate decreasing airspace disease or decreasing pleural fluid -CXR: Left-sided pleural effusion. Bibasilar infiltrates or edema. Cardiomegaly -sp cx normal winnie , C. albicans (colonizer) Fever , resolved Leukocytosis, persistent but improved- suspect multifactorial to possible PNA, possible parapneumonic effusion and possible metastatic disease (?RCC) MEtastatic disease per CT findings- suggest possible RCC B/L moderate pleural effusion- ?parapneumonic vs fluid related vs malignant -Chest US: Bilateral moderate-sized pleural effusions are demonstrated, approximately equal in size. Atelectatic right lower lobe is also noted. Probable lower GI bleed, ( tarry stool ) -occult blood neg repeat :neg -CT abd/p w/: 6.2 x 7.3 x 7 cm complex right lower pole renal mass. Multiloculated central low-attenuation components either represent intracystic components or central necrosis. Findings are suspicious for renal cell carcinoma. Evidence of multiple osseous metastases. Resultant pathologic burst/ compression fracture of the T12 vertebral body and posterior elements, as well as pathologic fractures of L4 and L5, bony involvement elsewhere as described. Low attenuation 2 cm left adrenal mass with enhancing periphery. This is also suspicious for metastasis, although could represent an atypical benign adenoma. Mild rectal wall thickening and edema of the presacral fat, suspicious for proctitis.There appears to be mild distention of the rectum by stool, so findings could represent mild fecal impaction with stercoral colitis. Borderline splenomegaly. Subcentimeter low-attenuation right lobe liver lesion, too small to characterize, most likely benign simple cyst or bile hamartoma. No further follow-up necessary Anemia- Multiple rib fractures- ?pathologic , ?MM vs renal CA given CT findings Thoracic compression fracture HTN Afib Plan: -D/c empiric IV Zosyn d# 5/5 and monitor off abx. Patient will be discharged on hospice. -04/29 SP Ceftriaxone/azithromycin #4 -04/26 SP ZOsyn #2 -04/25 SP LEvaquin x1 -f/u cx Discussed with RN. Subjective Allergies: Coded Allergies: FUROSEMIDE (Verified Allergy, Unknown, 04/25/17) Subjective afebrile Cx NTD will be discharged on hospice Objective Vital Signs Last 24 Hour Vital Signs Date Time Temp Pulse Resp B/P (MAP) Pulse Ox O2 Delivery O2 Flow Rate FiO2 05/03/17 16:00 97.2 69 19 125/77 99 Room Air 97.2 05/03/17 14:00 118/63 05/03/17 11:57 97.7 75 18 118/63 95 97.7 05/03/17 09:35 98.8 05/03/17 08:36 85 131/68 05/03/17 08:36 98.8 05/03/17 08:00 97.0 88 18 130/68 99 97.0 05/03/17 06:00 134/82 05/03/17 04:00 98.8 79 20 133/74 100 98.8 05/03/17 00:00 98.1 83 18 134/82 100 98.1 05/02/17 21:33 147/79 05/02/17 21:32 98 147/79 05/02/17 20:14 Room Air 05/02/17 20:00 98.6 98 20 147/79 92 98.6 05/02/17 20:00 94 Nasal Cannula 2.0 28 05/02/17 20:00 Nasal Cannula 2.0 28 Height (Feet): 5 Height (Inches): 10.00 Weight (Pounds): 229 Objective General Appearance: no apparent distress, alert,non-toxic HEENT: normocephalic, atraumatic, normal pharynx, Neck: full range of motion, supple/symm/no masses Respiratory: chest non-tender, lungs clear, normal breath sounds, speaking full sentences Cardiovascular : regular rate, rhythm, no edema Gastrointestinal: normal bowel sounds, non tender, soft, non-distended, no guarding, no rebound Genitourinary: normal inspection, no CVA tenderness Musculoskeletal: back normal, gait/station normal, normal range of motion, non- tender Neurologic: alert, oriented x3, responsive, motor strength/tone normal, sensory intact, speech normal Skin: normal color, no rash, warm/dry, well hydrated Lymphatic: no adenopathy Microbiology Date/Time Source Procedure Growth Status 05/01/17 14:55 Body Fluid Pleura Gram Stain - Final Resulted 05/01/17 14:55 Body Fluid Pleura Body Fluid Culture - Preliminary NO GROWTH AFTER 48 HOURS Resulted Laboratory Tests Test 05/03/17 05:30 05/03/17 07:20 Stool Occult Blood Negative (NEGATIVE) White Blood Count 15.1 K/UL (4.8-10.8) H Red Blood Count 3.34 M/UL (4.70-6.10) L Hemoglobin 7.5 G/DL (14.2-18.0) L Hematocrit 23.8 % (42.0-52.0) L Mean Corpuscular Volume 71 FL (80-99) L Mean Corpuscular Hemoglobin 22.5 PG (27.0-31.0) L Mean Corpuscular Hemoglobin Concent 31.6 G/DL (32.0-36.0) L Red Cell Distribution Width 17.3 % (11.6-14.8) H Platelet Count 413 K/UL (150-450) Mean Platelet Volume 5.0 FL (6.5-10.1) L Neutrophils (%) (Auto) % (45.0-75.0) Lymphocytes (%) (Auto) % (20.0-45.0) Monocytes (%) (Auto) % (1.0-10.0) Eosinophils (%) (Auto) % (0.0-3.0) Basophils (%) (Auto) % (0.0-2.0) Differential Total Cells Counted 100 Neutrophils % (Manual) 79 % (45-75) H Lymphocytes % (Manual) 14 % (20-45) L Monocytes % (Manual) 7 % (1-10) Eosinophils % (Manual) 0 % (0-3) Basophils % (Manual) 0 % (0-2) Band Neutrophils 0 % (0-8) Platelet Estimate Adequate Platelet Morphology Normal Polychromasia 1+ Hypochromasia 1+ Anisocytosis 1+ Microcytosis 1+ Sodium Level 138 MMOL/L (136-145) Potassium Level 3.6 MMOL/L (3.5-5.1) Chloride Level 101 MMOL/L (98-107) Carbon Dioxide Level 27 MMOL/L (21-32) Anion Gap 10 mmol/L (5-15) Blood Urea Nitrogen 8 mg/dL (7-18) Creatinine 0.5 MG/DL (0.55-1.30) L Estimat Glomerular Filtration Rate > 60 mL/min (>60) Glucose Level 78 MG/DL (74-106) Calcium Level 9.5 MG/DL (8.5-10.1) Current Medications Medications (Trade) Dose Ordered Sig/Juan Pablo Route PRN Reason Start Time Stop Time Status Last Admin Dose Admin Acetaminophen (Tylenol) 650 mg Q4H PRN ORAL Mild Pain/Temp > 100.5 05/02/17 18:45 05/25/17 18:44 Acetaminophen/ Hydrocodone Bitart ([place] 10/325) 1 tab Q6H PRN ORAL Moderate to Severe Pain 05/02/17 19:00 05/09/17 18:59 05/03/17 08:36 Heparin Sodium (Porcine) (Heparin 5000 units/ml) 5,000 units EVERY 12 HOURS SUBQ 05/02/17 21:00 05/25/17 20:59 05/03/17 08:38 Hydralazine HCl (Apresoline) 25 mg Q8HR ORAL 05/02/17 22:00 05/27/17 22:29 05/03/17 06:00 Iron Sucrose 100 mg/Sodium Chloride 60 ml @ 240 mls/hr BEDTIME IV 05/02/17 21:00 05/04/17 21:01 05/02/17 21:32 Metoprolol Tartrate (Lopressor) 50 mg Q12HR ORAL 05/02/17 21:00 05/28/17 08:59 05/03/17 08:36 Pantoprazole (Protonix) 40 mg Q12HR IVP 05/02/17 21:00 05/27/17 10:59 05/03/17 08:37 Piperacillin Sod/ Tazobactam Sod 3.375 gm/Sodium Chloride 110 ml @ 27.5 mls/hr Q8HR@0000,0800,1600 IVPB 05/03/17 00:00 05/07/17 07:59 05/03/17 08:35 Sertraline HCl (Zoloft) 25 mg DAILY ORAL 05/03/17 09:00 05/28/17 08:59 05/03/17 08:36 Ofelia Mak M.D. May 03, 2017 16:34
--- NOTE | 2017-05-03 19:46 | Progress Note ---
DATE: 05/03/2017 SUBJECTIVE: The patient is a 62-year-old male patient with shortness of breath. He does have some confusion and disorganized thought process and poor cognition secondary to stress of his medical illness so his attending physician has requested daily psychiatric consultation. MENTAL STATUS EXAMINATION: This is a 62-year-old male with psychomotor agitation. Mood is irritable and agitated. Affect guarded and restricted. Thought process, disorganized and illogical. Denies any current suicidal or homicidal thoughts. Insight and judgment is poor. DIAGNOSIS: Major depression with psychotic features, rule out paranoid schizophrenia, rule out pseudodementia PLAN: Treat with Zyprexa 5 mg at bedtime and Zoloft 25 mg daily. Provided 18-20 minutes supportive therapy and encourage him to interact appropriate with staff. Chart reviewed and discussed with staff. Seen and assessed at bedside. Jazmyn Dahl M.D. DR: NEVA JOB#: [id number] CC:
[2017-05-03 20:00] VITALS: BP 149/84
[2017-05-03] MEDS: Iron Sucrose 100 MG in NS 55 ML IV SCH (21:01)
--- NOTE | 2017-05-03 22:05 | Pulmonology Progress Note ---
Assessment/Plan Problems: (1) Metastatic renal cell carcinoma (2) Pathologic compression fracture of spine (3) Pneumonia (4) Pleural effusion (5) COPD (chronic obstructive pulmonary disease) (6) Arrhythmia (7) Anemia Assessment/Plan looks comfortable svt controlled sinus tach with PAC's, cardiology following respiratory treatment US of chest to assess the pleural effusion, reviewed, equal size, iv abx check electrolytes check labs in am all notes reviewed. daughter singed for hospice Subjective ROS Limited/Unobtainable: No Interval Events: pain is better controlled Constitutional: Reports: no symptoms HEENT: Repors: no symptoms Respiratory: Reports: no symptoms Allergies: Coded Allergies: FUROSEMIDE (Verified Allergy, Unknown, 04/25/17) Objective Last 24 Hour Vital Signs Date Time Temp Pulse Resp B/P (MAP) Pulse Ox O2 Delivery O2 Flow Rate FiO2 05/03/17 21:02 86 149/84 05/03/17 21:02 149/84 05/03/17 20:00 99.0 86 18 149/84 91 99.0 05/03/17 16:00 97.2 69 19 125/77 99 Room Air 97.2 05/03/17 14:00 118/63 05/03/17 11:57 97.7 75 18 118/63 95 97.7 05/03/17 09:35 98.8 05/03/17 08:36 85 131/68 05/03/17 08:36 98.8 05/03/17 08:00 97.0 88 18 130/68 99 97.0 05/03/17 06:00 134/82 05/03/17 04:00 98.8 79 20 133/74 100 98.8 05/03/17 00:00 98.1 83 18 134/82 100 98.1 Intake and Output 05/02/17 05/03/17 19:00 07:00 Intake Total 170.0 ml Balance 170.0 ml IV Total 170.0 ml # Voids 1 5 # Bowel Movements 1 Objective General Appearance: cachetic HEENT: normocephalic Neck: non-tender, normal alignment Respiratory/Chest: chest wall non-tender, lungs clear Breasts: no masses Cardiovascular/Chest: normal peripheral pulses Abdomen: normal bowel sounds, non tender, no organomegaly Extremities: normal range of motion Skin Exam: normal pigmentation Microbiology Date/Time Source Procedure Growth Status 05/01/17 14:55 Body Fluid Pleura Gram Stain - Final Resulted 05/01/17 14:55 Body Fluid Pleura Body Fluid Culture - Preliminary NO GROWTH AFTER 48 HOURS Resulted Laboratory Tests 05/03/17 05:30: Stool Occult Blood Negative 05/03/17 07:20: White Blood Count 15.1H, Red Blood Count 3.34L, Hemoglobin 7.5L, Hematocrit 23.8L, Mean Corpuscular Volume 71L, Mean Corpuscular Hemoglobin 22.5L, Mean Corpuscular Hemoglobin Concent 31.6L, Red Cell Distribution Width 17.3H, Platelet Count 413, Mean Platelet Volume 5.0L, Neutrophils (%) (Auto) , Lymphocytes (%) (Auto) , Monocytes (%) (Auto) , Eosinophils (%) (Auto) , Basophils (%) (Auto) , Differential Total Cells Counted 100, Neutrophils % ( Manual) 79H, Lymphocytes % (Manual) 14L, Monocytes % (Manual) 7, Eosinophils % ( Manual) 0, Basophils % (Manual) 0, Band Neutrophils 0, Platelet Estimate Adequate, Platelet Morphology Normal, Polychromasia 1+, Hypochromasia 1+, Anisocytosis 1+, Microcytosis 1+, Sodium Level 138, Potassium Level 3.6, Chloride Level 101, Carbon Dioxide Level 27, Anion Gap 10, Blood Urea Nitrogen 8 , Creatinine 0.5L, Estimat Glomerular Filtration Rate > 60, Glucose Level 78, Calcium Level 9.5 Current Medications Medications (Trade) Dose Ordered Sig/Juan Pablo Route PRN Reason Start Time Stop Time Status Last Admin Dose Admin Acetaminophen (Tylenol) 650 mg Q4H PRN ORAL Mild Pain/Temp > 100.5 05/02/17 18:45 05/25/17 18:44 05/03/17 21:02 Acetaminophen/ Hydrocodone Bitart ([place] 10/325) 1 tab Q6H PRN ORAL Moderate to Severe Pain 05/02/17 19:00 05/09/17 18:59 05/03/17 08:36 Heparin Sodium (Porcine) (Heparin 5000 units/ml) 5,000 units EVERY 12 HOURS SUBQ 05/02/17 21:00 05/25/17 20:59 05/03/17 21:04 Hydralazine HCl (Apresoline) 25 mg Q8HR ORAL 05/02/17 22:00 05/27/17 22:29 05/03/17 21:02 Iron Sucrose 100 mg/Sodium Chloride 60 ml @ 240 mls/hr BEDTIME IV 05/02/17 21:00 05/04/17 21:01 05/03/17 21:01 Metoprolol Tartrate (Lopressor) 50 mg Q12HR ORAL 05/02/17 21:00 05/28/17 08:59 05/03/17 21:02 Pantoprazole (Protonix) 40 mg Q12HR IVP 05/02/17 21:00 05/27/17 10:59 05/03/17 21:01 Sertraline HCl (Zoloft) 25 mg DAILY ORAL 05/03/17 09:00 05/28/17 08:59 05/03/17 08:36 Iker Avina MD May 03, 2017 22:04
[2017-05-04] VITALS: BP 142/74
[2017-05-04 04:00] VITALS: BP 149/76
[2017-05-04] MEDS: HydrALAZINE 25mg tab ORAL SCH ×3 (06:00→22:32)
[2017-05-04 10:11] LABS: HEMATOCRIT 25.9 % (42.0-52.0); HEMOGLOBIN 7.8 G/DL (14.2-18.0); MEAN CORPUSCULAR VOLUME 72 FL (80-99); PLATELET COUNT 400 K/UL (150-450); RED BLOOD COUNT 3.63 M/UL (4.70-6.10); RED CELL DISTRIBUTION WIDTH 17.8 % (11.6-14.8); WHITE BLOOD COUNT 14.2 K/UL (4.8-10.8)
[2017-05-04] MEDS: Pantoprazole Inj IVP SCH ×2 (10:16→21:00)
[2017-05-04] MEDS: Metoprolol Tartrate 50mg tab ORAL SCH ×2 (10:16→22:32)
[2017-05-04] MEDS: Sertraline 50mg tab ORAL SCH (10:16)
[2017-05-04] MEDS: Heparin 5000 units/ml inj SUBQ SCH ×2 (10:18→22:34)
[2017-05-04 10:32] LABS: ANION GAP 4 mmol/L (5-15); BLOOD UREA NITROGEN 7 mg/dL (7-18); CALCIUM 9.1 MG/DL (8.5-10.1); CARBON DIOXIDE 31 MMOL/L (21-32); CHLORIDE 101 MMOL/L (98-107); CREATININE 0.6 MG/DL (0.55-1.30); POTASSIUM 3.4 MMOL/L (3.5-5.1); SODIUM 136 MMOL/L (136-145)
--- NOTE | 2017-05-04 11:00 | GI Progress Note ---
Assessment/Plan Problems: (1) Anemia ICD Codes: D64.9 - Anemia, unspecified SNOMED: 492582668 Qualifiers: Qualified Codes: D64.9 - Anemia, unspecified (2) GI bleed ICD Codes: K92.2 - Gastrointestinal hemorrhage, unspecified SNOMED: 63346872 Status: unchanged Status Narrative Discussed with Dr. Milner. Assessment/Plan s/p EGD fu biopsy results >> negative for H. Pylori stool ob>>> negative x 2 symptomatic treatment iv iron fu H&H prn blood transfusion outpatient colonoscopy Subjective Subjective limited Objective Last 24 Hour Vital Signs Date Time Temp Pulse Resp B/P (MAP) Pulse Ox O2 Delivery O2 Flow Rate FiO2 05/04/17 10:16 78 149/76 05/04/17 04:00 98.4 78 19 149/76 93 98.4 05/04/17 00:00 98.4 64 18 142/74 95 98.4 05/03/17 21:02 86 149/84 05/03/17 21:02 149/84 05/03/17 20:00 99.0 86 18 149/84 91 99.0 05/03/17 16:00 97.2 69 19 125/77 99 Room Air 97.2 05/03/17 14:00 118/63 05/03/17 11:57 97.7 75 18 118/63 95 97.7 Intake and Output 05/03/17 05/04/17 19:00 07:00 Intake Total 720 ml 80 ml Balance 720 ml 80 ml Intake Oral 720 ml 20 ml IV Total 60 ml # Voids 2 2 # Bowel Movements 1 Laboratory Tests Test 05/04/17 09:50 White Blood Count 14.2 K/UL (4.8-10.8) H Red Blood Count 3.63 M/UL (4.70-6.10) L Hemoglobin 7.8 G/DL (14.2-18.0) L Hematocrit 25.9 % (42.0-52.0) L Mean Corpuscular Volume 72 FL (80-99) L Mean Corpuscular Hemoglobin 21.6 PG (27.0-31.0) L Mean Corpuscular Hemoglobin Concent 30.2 G/DL (32.0-36.0) L Red Cell Distribution Width 17.8 % (11.6-14.8) H Platelet Count 400 K/UL (150-450) Mean Platelet Volume 5.3 FL (6.5-10.1) L Neutrophils (%) (Auto) % (45.0-75.0) Lymphocytes (%) (Auto) % (20.0-45.0) Monocytes (%) (Auto) % (1.0-10.0) Eosinophils (%) (Auto) % (0.0-3.0) Basophils (%) (Auto) % (0.0-2.0) Neutrophils % (Manual) Pending Lymphocytes % (Manual) Pending Platelet Estimate Pending Platelet Morphology Pending Sodium Level 136 MMOL/L (136-145) Potassium Level 3.4 MMOL/L (3.5-5.1) L Chloride Level 101 MMOL/L (98-107) Carbon Dioxide Level 31 MMOL/L (21-32) Anion Gap 4 mmol/L (5-15) L Blood Urea Nitrogen 7 mg/dL (7-18) Creatinine 0.6 MG/DL (0.55-1.30) Estimat Glomerular Filtration Rate > 60 mL/min (>60) Glucose Level 132 MG/DL (74-106) H Calcium Level 9.1 MG/DL (8.5-10.1) Height (Feet): 5 Height (Inches): 10.00 Weight (Pounds): 229 General Appearance: WD/WN, no apparent distress, alert Cardiovascular: normal rate Respiratory/Chest: normal breath sounds, no respiratory distress Abdominal Exam: normal bowel sounds, non tender, soft Jammie Cote N.P. May 04, 2017 11:00
--- NOTE | 2017-05-04 13:22 | General Progress Note ---
Assessment/Plan Assessment/Plan Assessment and Recs: 1. Renal cell carcinoma stage IV with osseous metastasis including T12 vertebral compression fracture. reviewed tumor markers, have discussed with other consultants --> have discussed with patient and he has refused/declined a ct-guided biopsy at this time, clinical picture represents RCC. Recommend biopsy as outpatient for definitive diagnosis --> most likely is renal cell carcinoma given clinical findings, given very poor performance status, recommend snf placement and palliative services/ comfort care measures, hospice care --> have discussed above with primary doctor, recommended hospice care 2. Anemia of chronic disease. ferritin 1617 --> Transfuse if hgb <7 3. Bilateral pleural effusion, parapneumonic versus versus malignancy. 4. T12 compression fracture. 5. Atrial fibrillation. 6. Hypertension. Subjective Date patient seen: May 03, 2017 Constitutional: Denies: no symptoms, chills, diaphoresis, fever, malaise, weakness, other HEENT: Denies: no symptoms, eye pain, blurred vision, tearing, double vision, ear pain, ear discharge, nose pain, nose congestion, throat pain, throat swelling, mouth pain, mouth swelling, other Cardiovascular: Denies: no symptoms, chest pain, edema, irregular heart rate, lightheadedness, palpitations, syncope, other Respiratory: Denies: no symptoms, cough, orthopnea, shortness of breath, SOB with excertion, SOB at rest, sputum, stridor, wheezing, other Gastrointestinal/Abdominal: Denies: no symptoms, abdomen distended, abdominal pain, black stools, tarry stools, blood in stool, constipated, diarrhea, difficulty swallowing, nausea, poor appetite, poor fluid intake, rectal bleeding , vomiting, other Genitourinary: Denies: no symptoms, burning, discharge, frequency, flank pain, hematuria, incontinence, pain, urgency, other Neurologic/Psychiatric: Denies: no symptoms, anxiety, depressed, emotional problems, headache, numbness, paresthesia, pre-existing deficit, seizure, tingling, tremors, weakness, other Allergies: Coded Allergies: FUROSEMIDE (Verified Allergy, Unknown, 04/25/17) Subjective Encephalopathic. Refuses biopsy. No new events Objective Last 24 Hour Vital Signs Date Time Temp Pulse Resp B/P (MAP) Pulse Ox O2 Delivery O2 Flow Rate FiO2 05/04/17 10:16 78 149/76 05/04/17 04:00 98.4 78 19 149/76 93 98.4 05/04/17 00:00 98.4 64 18 142/74 95 98.4 05/03/17 21:02 86 149/84 05/03/17 21:02 149/84 05/03/17 20:00 99.0 86 18 149/84 91 99.0 05/03/17 16:00 97.2 69 19 125/77 99 Room Air 97.2 05/03/17 14:00 118/63 Intake and Output 05/03/17 05/04/17 19:00 07:00 Intake Total 720 ml 80 ml Balance 720 ml 80 ml Intake Oral 720 ml 20 ml IV Total 60 ml # Voids 2 2 # Bowel Movements 1 Laboratory Tests 05/04/17 09:50: White Blood Count 14.2H, Red Blood Count 3.63L, Hemoglobin 7.8L, Hematocrit 25.9L, Mean Corpuscular Volume 72L, Mean Corpuscular Hemoglobin 21.6L, Mean Corpuscular Hemoglobin Concent 30.2L, Red Cell Distribution Width 17.8H, Platelet Count 400, Mean Platelet Volume 5.3L, Neutrophils (%) (Auto) , Lymphocytes (%) (Auto) , Monocytes (%) (Auto) , Eosinophils (%) (Auto) , Basophils (%) (Auto) , Differential Total Cells Counted 100, Neutrophils % ( Manual) 78H, Lymphocytes % (Manual) 10L, Monocytes % (Manual) 9, Eosinophils % ( Manual) 2, Basophils % (Manual) 0, Band Neutrophils 1, Platelet Estimate Adequate, Platelet Morphology Normal, Hypochromasia 1+, Microcytosis 1+, Sodium Level 136, Potassium Level 3.4L, Chloride Level 101, Carbon Dioxide Level 31, Anion Gap 4L, Blood Urea Nitrogen 7, Creatinine 0.6, Estimat Glomerular Filtration Rate > 60, Glucose Level 132H, Calcium Level 9.1 Height (Feet): 5 Height (Inches): 10.00 Weight (Pounds): 229 General Appearance: confused, agitated Chilo Sidhu MD May 04, 2017 13:22
[2017-05-04] MEDS: HYDROcodone/Acetamin 10/325 tab ORAL PRN ×2 (13:39→22:44)
--- NOTE | 2017-05-04 14:10 | Nephrology Progress Note ---
Assessment/Plan Assessment 1. renal cell carcinoma 2. hypokalemia 3. Hypertension. 4. Atrial fibrillation. 5.malnutrition 6.adrenal mass 7.pleural effusion Plan plan fallow up with urine study monitoring renal function MRI of abdomen to evaluate renal mass may need biopsy monitoring electrolyte closely avoid NSAID Subjective Constitutional: Reports: no symptoms HEENT: Reports: no symptoms Genitourinary: Reports: no symptoms Neurologic/Psychiatric: Reports: no symptoms Subjective no acute events no complaints Objective Objective Last 24 Hour Vital Signs Date Time Temp Pulse Resp B/P (MAP) Pulse Ox O2 Delivery O2 Flow Rate FiO2 05/04/17 13:43 149/76 05/04/17 13:39 98.4 05/04/17 10:16 78 149/76 05/04/17 04:00 98.4 78 19 149/76 93 98.4 05/04/17 00:00 98.4 64 18 142/74 95 98.4 05/03/17 21:02 86 149/84 05/03/17 21:02 149/84 05/03/17 20:00 99.0 86 18 149/84 91 99.0 05/03/17 16:00 97.2 69 19 125/77 99 Room Air 97.2 Intake and Output 05/03/17 05/04/17 19:00 07:00 Intake Total 720 ml 80 ml Balance 720 ml 80 ml Intake Oral 720 ml 20 ml IV Total 60 ml # Voids 2 2 # Bowel Movements 1 Laboratory Tests 05/04/17 09:50: White Blood Count 14.2H, Red Blood Count 3.63L, Hemoglobin 7.8L, Hematocrit 25.9L, Mean Corpuscular Volume 72L, Mean Corpuscular Hemoglobin 21.6L, Mean Corpuscular Hemoglobin Concent 30.2L, Red Cell Distribution Width 17.8H, Platelet Count 400, Mean Platelet Volume 5.3L, Neutrophils (%) (Auto) , Lymphocytes (%) (Auto) , Monocytes (%) (Auto) , Eosinophils (%) (Auto) , Basophils (%) (Auto) , Differential Total Cells Counted 100, Neutrophils % ( Manual) 78H, Lymphocytes % (Manual) 10L, Monocytes % (Manual) 9, Eosinophils % ( Manual) 2, Basophils % (Manual) 0, Band Neutrophils 1, Platelet Estimate Adequate, Platelet Morphology Normal, Hypochromasia 1+, Microcytosis 1+, Sodium Level 136, Potassium Level 3.4L, Chloride Level 101, Carbon Dioxide Level 31, Anion Gap 4L, Blood Urea Nitrogen 7, Creatinine 0.6, Estimat Glomerular Filtration Rate > 60, Glucose Level 132H, Calcium Level 9.1 Height (Feet): 5 Height (Inches): 10.00 Weight (Pounds): 229 Objective HEAD AND NECK: No JVP. No LAD. No thyromegaly. Head is atraumatic and normocephalic. Extraocular movements intact. LUNGS: Clear to auscultation. CARDIAC: Regular rate and rhythm. S1 and S2. No murmur. No rub. ABDOMEN: Soft, nontender, and nondistended. EXTREMITIES: No edema. No clubbing. No cyanosis. PROMISE AZUL May 04, 2017 14:10
--- NOTE | 2017-05-04 14:38 | General Progress Note ---
Assessment/Plan Problem List: (1) HTN (hypertension) ICD Codes: I10 - Essential (primary) hypertension SNOMED: 04571688 (2) Hypoalbuminemia ICD Codes: E88.09 - Other disorders of plasma-protein metabolism, not elsewhere classified SNOMED: 362786738 (3) Anemia ICD Codes: D64.9 - Anemia, unspecified SNOMED: 188434063 Qualifiers: Qualified Codes: D64.9 - Anemia, unspecified (4) Pneumonia ICD Codes: J18.9 - Pneumonia, unspecified organism SNOMED: 724642791 Qualifiers: Qualified Codes: J18.1 - Lobar pneumonia, unspecified organism (5) COPD (chronic obstructive pulmonary disease) ICD Codes: J44.9 - Chronic obstructive pulmonary disease, unspecified SNOMED: 66110898 (6) Urinary tract infection ICD Codes: N39.0 - Urinary tract infection, site not specified SNOMED: 95043281 (7) Shortness of breath ICD Codes: R06.02 - Shortness of breath SNOMED: 195202728 (8) Renal cancer ICD Codes: C64.9 - Malignant neoplasm of unspecified kidney, except renal pelvis SNOMED: 989731878 Status: unchanged Assessment/Plan ot pt diet abx cbc bmp am dc w hospice Subjective Constitutional: Reports: weakness Allergies: Coded Allergies: FUROSEMIDE (Verified Allergy, Unknown, 04/25/17) All Systems: reviewed and negative except above Subjective o2nc calm in bed sl confused Objective Last 24 Hour Vital Signs Date Time Temp Pulse Resp B/P (MAP) Pulse Ox O2 Delivery O2 Flow Rate FiO2 05/04/17 13:43 149/76 05/04/17 13:39 98.4 05/04/17 10:16 78 149/76 05/04/17 04:00 98.4 78 19 149/76 93 98.4 05/04/17 00:00 98.4 64 18 142/74 95 98.4 05/03/17 21:02 86 149/84 05/03/17 21:02 149/84 05/03/17 20:00 99.0 86 18 149/84 91 99.0 05/03/17 16:00 97.2 69 19 125/77 99 Room Air 97.2 Intake and Output 05/03/17 05/04/17 19:00 07:00 Intake Total 720 ml 80 ml Balance 720 ml 80 ml Intake Oral 720 ml 20 ml IV Total 60 ml # Voids 2 2 # Bowel Movements 1 Laboratory Tests 05/04/17 09:50: White Blood Count 14.2H, Red Blood Count 3.63L, Hemoglobin 7.8L, Hematocrit 25.9L, Mean Corpuscular Volume 72L, Mean Corpuscular Hemoglobin 21.6L, Mean Corpuscular Hemoglobin Concent 30.2L, Red Cell Distribution Width 17.8H, Platelet Count 400, Mean Platelet Volume 5.3L, Neutrophils (%) (Auto) , Lymphocytes (%) (Auto) , Monocytes (%) (Auto) , Eosinophils (%) (Auto) , Basophils (%) (Auto) , Differential Total Cells Counted 100, Neutrophils % ( Manual) 78H, Lymphocytes % (Manual) 10L, Monocytes % (Manual) 9, Eosinophils % ( Manual) 2, Basophils % (Manual) 0, Band Neutrophils 1, Platelet Estimate Adequate, Platelet Morphology Normal, Hypochromasia 1+, Microcytosis 1+, Sodium Level 136, Potassium Level 3.4L, Chloride Level 101, Carbon Dioxide Level 31, Anion Gap 4L, Blood Urea Nitrogen 7, Creatinine 0.6, Estimat Glomerular Filtration Rate > 60, Glucose Level 132H, Calcium Level 9.1 Height (Feet): 5 Height (Inches): 10.00 Weight (Pounds): 229 General Appearance: lethargic EENT: normal ENT inspection Neck: normal alignment Cardiovascular: normal peripheral pulses, normal rate, regular rhythm Respiratory/Chest: chest wall non-tender, decreased breath sounds Abdomen: normal bowel sounds, non tender, soft Extremities: normal inspection Edema: no edema noted Arm (L), no edema noted Arm (R), no edema noted Leg (L), no edema noted Leg (R), no edema noted Pedal (L), no edema noted Pedal (R), no edema noted Generalized Neurologic: motor weakness Skin: normal pigmentation, warm/dry ANNA LIRA May 04, 2017 14:38
[2017-05-04 15:57] VITALS: BP 135/74
--- NOTE | 2017-05-04 16:55 | Pulmonology Progress Note ---
Assessment/Plan Problems: (1) Metastatic renal cell carcinoma (2) Pathologic compression fracture of spine (3) Pneumonia (4) Pleural effusion (5) COPD (chronic obstructive pulmonary disease) (6) Arrhythmia (7) Anemia Assessment/Plan looks comfortable svt controlled sinus tach with PAC's, cardiology following respiratory treatment all notes reviewed. daughter singed for hospice dc planning in progress Subjective ROS Limited/Unobtainable: No Allergies: Coded Allergies: FUROSEMIDE (Verified Allergy, Unknown, 04/25/17) Objective Last 24 Hour Vital Signs Date Time Temp Pulse Resp B/P (MAP) Pulse Ox O2 Delivery O2 Flow Rate FiO2 05/04/17 15:57 98.7 75 21 135/74 99 Room Air 98.7 05/04/17 14:38 98.4 05/04/17 13:43 149/76 05/04/17 13:39 98.4 05/04/17 10:16 78 149/76 05/04/17 04:00 98.4 78 19 149/76 93 98.4 05/04/17 00:00 98.4 64 18 142/74 95 98.4 05/03/17 21:02 86 149/84 05/03/17 21:02 149/84 05/03/17 20:00 99.0 86 18 149/84 91 99.0 Intake and Output 05/03/17 05/04/17 19:00 07:00 Intake Total 720 ml 80 ml Balance 720 ml 80 ml Intake Oral 720 ml 20 ml IV Total 60 ml # Voids 2 2 # Bowel Movements 1 Objective General Appearance: cachetic HEENT: normocephalic Neck: non-tender, normal alignment Respiratory/Chest: chest wall non-tender, lungs clear Breasts: no masses Cardiovascular/Chest: normal peripheral pulses Abdomen: normal bowel sounds, non tender, no organomegaly Extremities: normal range of motion Skin Exam: normal pigmentation Laboratory Tests 05/04/17 09:50: White Blood Count 14.2H, Red Blood Count 3.63L, Hemoglobin 7.8L, Hematocrit 25.9L, Mean Corpuscular Volume 72L, Mean Corpuscular Hemoglobin 21.6L, Mean Corpuscular Hemoglobin Concent 30.2L, Red Cell Distribution Width 17.8H, Platelet Count 400, Mean Platelet Volume 5.3L, Neutrophils (%) (Auto) , Lymphocytes (%) (Auto) , Monocytes (%) (Auto) , Eosinophils (%) (Auto) , Basophils (%) (Auto) , Differential Total Cells Counted 100, Neutrophils % ( Manual) 78H, Lymphocytes % (Manual) 10L, Monocytes % (Manual) 9, Eosinophils % ( Manual) 2, Basophils % (Manual) 0, Band Neutrophils 1, Platelet Estimate Adequate, Platelet Morphology Normal, Hypochromasia 1+, Microcytosis 1+, Sodium Level 136, Potassium Level 3.4L, Chloride Level 101, Carbon Dioxide Level 31, Anion Gap 4L, Blood Urea Nitrogen 7, Creatinine 0.6, Estimat Glomerular Filtration Rate > 60, Glucose Level 132H, Calcium Level 9.1 Current Medications Medications (Trade) Dose Ordered Sig/Juan Pablo Route PRN Reason Start Time Stop Time Status Last Admin Dose Admin Acetaminophen (Tylenol) 650 mg Q4H PRN ORAL Mild Pain/Temp > 100.5 05/02/17 18:45 05/25/17 18:44 05/03/17 21:02 Acetaminophen/ Hydrocodone Bitart ([place] 10/325) 1 tab Q6H PRN ORAL Moderate to Severe Pain 05/02/17 19:00 05/09/17 18:59 05/04/17 13:39 Heparin Sodium (Porcine) (Heparin 5000 units/ml) 5,000 units EVERY 12 HOURS SUBQ 05/02/17 21:00 05/25/17 20:59 05/04/17 10:18 Hydralazine HCl (Apresoline) 25 mg Q8HR ORAL 05/02/17 22:00 05/27/17 22:29 05/04/17 13:43 Iron Sucrose 100 mg/Sodium Chloride 60 ml @ 240 mls/hr BEDTIME IV 05/02/17 21:00 05/04/17 21:01 05/03/17 21:01 Metoprolol Tartrate (Lopressor) 50 mg Q12HR ORAL 05/02/17 21:00 05/28/17 08:59 05/04/17 10:16 Pantoprazole (Protonix) 40 mg Q12HR IVP 05/02/17 21:00 05/27/17 10:59 05/04/17 10:16 Sertraline HCl (Zoloft) 25 mg DAILY ORAL 05/03/17 09:00 05/28/17 08:59 05/04/17 10:16 Iker Avina MD May 04, 2017 16:54
[2017-05-04] MEDS ORDERED: HYDROcodone/Acetamin 10/325 ORAL (17:43)
[2017-05-04] MEDS ORDERED: HYDRALAZINE HCL25 M1 ORAL (17:43)
[2017-05-04] MEDS ORDERED: METOPROLOL TART50 MG ORAL (17:43)
[2017-05-04] MEDS ORDERED: MORPHINE S10 MG/5 ML ORAL (17:44)
--- NOTE | 2017-05-04 19:46 | Progress Note ---
DATE: 05/04/2017 SUBJECTIVE: The patient is 62-year-old male patient with shortness of breath. He has some confusion, disorganized thought process. He mood lability, agitation, irritability and confusion. MENTAL STATUS EXAMINATION: This is a 62-year-old male with psychomotor retardation. Mood is depressed. Affect guarded and restricted. Thought process, disorganized and illogical. Denies any current suicidal or homicidal thoughts of ideation. Insight and judgment is poor. DIAGNOSES: Major depressive disorder with psychotic features, rule out rule out pseudodementia. PLAN: Treat him with Zyprexa 5 mg at bedtime, Zoloft 25 mg daily. 18 to 20 minutes of supportive care provided. Chart reviewed and discussed with staff. Jazmyn Dahl M.D. DR: NIMA JOB#: [id number] CC:
[2017-05-04 20:00] VITALS: BP 138/76
[2017-05-04] MEDS: Iron Sucrose 100 MG in NS 55 ML IV SCH (21:00)
--- NOTE | 2017-05-04 23:41 | Cardiology Progress Note ---
Assessment/Plan Assessment/Plan 1. Paroxysmal atrial fibrillation, in sinus rhythm, continue metoprolol, consider Xarelto as she is high risk per CHADS-Vasc scoring system. 2. History of hypertension, will monitor the patient's blood pressure as he was hypotensive on admission, left ventricular ejection fraction is ~75%. 3. Large left pleural effusion. 4. History of anemia. 5. History of psychiatric disorder. 6. Metastatic renal call carcinoma. Subjective Subjective No cardiac events. Denies chest pain or SOB. Off the telemetry unit. Objective Last 24 Hour Vital Signs Date Time Temp Pulse Resp B/P (MAP) Pulse Ox O2 Delivery O2 Flow Rate FiO2 05/04/17 22:32 77 138/76 05/04/17 22:32 138/76 05/04/17 20:00 98.2 77 20 138/76 97 98.2 05/04/17 15:57 98.7 75 21 135/74 99 Room Air 98.7 05/04/17 14:38 98.4 05/04/17 13:43 149/76 05/04/17 13:39 98.4 05/04/17 10:16 78 149/76 05/04/17 04:00 98.4 78 19 149/76 93 98.4 05/04/17 00:00 98.4 64 18 142/74 95 98.4 Intake and Output 05/03/17 05/04/17 19:00 07:00 Intake Total 720 ml 80 ml Balance 720 ml 80 ml Intake Oral 720 ml 20 ml IV Total 60 ml # Voids 2 2 # Bowel Movements 1 2D Echo: EF 60%,Mod LVH,Grade I LVDD,mild MR,Pleural eff.,RVSP 41, Small Pericar Eff Laboratory Tests Test 05/04/17 09:50 White Blood Count 14.2 K/UL (4.8-10.8) H Red Blood Count 3.63 M/UL (4.70-6.10) L Hemoglobin 7.8 G/DL (14.2-18.0) L Hematocrit 25.9 % (42.0-52.0) L Mean Corpuscular Volume 72 FL (80-99) L Mean Corpuscular Hemoglobin 21.6 PG (27.0-31.0) L Mean Corpuscular Hemoglobin Concent 30.2 G/DL (32.0-36.0) L Red Cell Distribution Width 17.8 % (11.6-14.8) H Platelet Count 400 K/UL (150-450) Mean Platelet Volume 5.3 FL (6.5-10.1) L Neutrophils (%) (Auto) % (45.0-75.0) Lymphocytes (%) (Auto) % (20.0-45.0) Monocytes (%) (Auto) % (1.0-10.0) Eosinophils (%) (Auto) % (0.0-3.0) Basophils (%) (Auto) % (0.0-2.0) Differential Total Cells Counted 100 Neutrophils % (Manual) 78 % (45-75) H Lymphocytes % (Manual) 10 % (20-45) L Monocytes % (Manual) 9 % (1-10) Eosinophils % (Manual) 2 % (0-3) Basophils % (Manual) 0 % (0-2) Band Neutrophils 1 % (0-8) Platelet Estimate Adequate Platelet Morphology Normal Hypochromasia 1+ Microcytosis 1+ Sodium Level 136 MMOL/L (136-145) Potassium Level 3.4 MMOL/L (3.5-5.1) L Chloride Level 101 MMOL/L (98-107) Carbon Dioxide Level 31 MMOL/L (21-32) Anion Gap 4 mmol/L (5-15) L Blood Urea Nitrogen 7 mg/dL (7-18) Creatinine 0.6 MG/DL (0.55-1.30) Estimat Glomerular Filtration Rate > 60 mL/min (>60) Glucose Level 132 MG/DL (74-106) H Calcium Level 9.1 MG/DL (8.5-10.1) Objective HEENT: Atraumatic and normocephalic. Anicteric. Pupils are equal, round, and reactive to light and accommodation. Extraocular muscles intact. There is poor dentition. NECK: JVP less than 5 centimeter. No carotid bruit. Carotid upstrokes 2+ bilaterally. CARDIOVASCULAR: Normal S1 and S2. Regular rate and rhythm. No murmurs, gallops, or rubs. PMI is at fourth intercostal space in the midclavicular line. LUNGS: Diminished breath sounds in both bases. ABDOMEN: Soft, nontender, and nondistended. No hepatosplenomegaly. Positive bowel sounds. EXTREMITIES: No evidence of edema, clubbing, or cyanosis. ELISABETH CONTE May 04, 2017 23:41
[2017-05-05] VITALS: BP 128/79
[2017-05-05 04:00] VITALS: BP 135/89
[2017-05-05] MEDS: HYDROcodone/Acetamin 10/325 tab ORAL PRN ×2 (05:40→15:00)
[2017-05-05] MEDS: HydrALAZINE 25mg tab ORAL SCH ×2 (05:41→14:21)
[2017-05-05 07:52] LABS: HEMATOCRIT 24.9 % (42.0-52.0); HEMOGLOBIN 7.6 G/DL (14.2-18.0); MEAN CORPUSCULAR VOLUME 72 FL (80-99); PLATELET COUNT 383 K/UL (150-450); RED BLOOD COUNT 3.46 M/UL (4.70-6.10); WHITE BLOOD COUNT 13.5 K/UL (4.8-10.8)
[2017-05-05 08:00] VITALS: BP 133/69
[2017-05-05 08:13] LABS: ANION GAP 7 mmol/L (5-15); BLOOD UREA NITROGEN 7 mg/dL (7-18); CARBON DIOXIDE 30 MMOL/L (21-32); CHLORIDE 100 MMOL/L (98-107); CREATININE 0.5 MG/DL (0.55-1.30); POTASSIUM 3.5 MMOL/L (3.5-5.1); SODIUM 137 MMOL/L (136-145)
[2017-05-05] MEDS: Pantoprazole Inj IVP SCH (09:00)
[2017-05-05] MEDS: Metoprolol Tartrate 50mg tab ORAL SCH (11:20)
[2017-05-05] MEDS: Sertraline 50mg tab ORAL SCH (11:20)
[2017-05-05] MEDS: Heparin 5000 units/ml inj SUBQ SCH (11:24)
--- NOTE | 2017-05-05 11:31 | GI Progress Note ---
Assessment/Plan Problems: (1) Anemia ICD Codes: D64.9 - Anemia, unspecified SNOMED: 031347366 Qualifiers: Qualified Codes: D64.9 - Anemia, unspecified (2) GI bleed ICD Codes: K92.2 - Gastrointestinal hemorrhage, unspecified SNOMED: 03516200 Status: unchanged Status Narrative Discussed with Dr. Milner. Assessment/Plan s/p EGD fu biopsy results >> negative for H. Pylori stool ob>>> negative x 2 symptomatic treatment iv iron fu H&H prn blood transfusion outpatient colonoscopy The patient was seen and examined at bedside and all new and available data was reviewed in the patients chart. I agree with the above findings, impression and plan. (Patient seen earlier today. Signature stamp does not reflect patient encounter time.). - Connie Milner MD Subjective Subjective limited Objective Last 24 Hour Vital Signs Date Time Temp Pulse Resp B/P (MAP) Pulse Ox O2 Delivery O2 Flow Rate FiO2 05/05/17 11:20 76 135/89 05/05/17 05:41 135/89 05/05/17 04:00 97.5 76 20 135/89 93 97.5 05/05/17 00:00 98.6 62 20 128/79 94 98.6 05/04/17 22:32 77 138/76 05/04/17 22:32 138/76 05/04/17 20:00 98.2 77 20 138/76 97 98.2 05/04/17 15:57 98.7 75 21 135/74 99 Room Air 98.7 05/04/17 14:38 98.4 05/04/17 13:43 149/76 05/04/17 13:39 98.4 Intake and Output 05/04/17 05/05/17 19:00 07:00 Intake Total 1040 ml 500 ml Balance 1040 ml 500 ml Intake Oral 1040 ml 500 ml # Voids 3 7 Laboratory Tests Test 05/05/17 05:10 White Blood Count 13.5 K/UL (4.8-10.8) H Red Blood Count 3.46 M/UL (4.70-6.10) L Hemoglobin 7.6 G/DL (14.2-18.0) L Hematocrit 24.9 % (42.0-52.0) L Mean Corpuscular Volume 72 FL (80-99) L Mean Corpuscular Hemoglobin 22.0 PG (27.0-31.0) L Mean Corpuscular Hemoglobin Concent 30.6 G/DL (32.0-36.0) L Red Cell Distribution Width 18.0 % (11.6-14.8) H Platelet Count 383 K/UL (150-450) Mean Platelet Volume 5.2 FL (6.5-10.1) L Neutrophils (%) (Auto) % (45.0-75.0) Lymphocytes (%) (Auto) % (20.0-45.0) Monocytes (%) (Auto) % (1.0-10.0) Eosinophils (%) (Auto) % (0.0-3.0) Basophils (%) (Auto) % (0.0-2.0) Differential Total Cells Counted 100 Neutrophils % (Manual) 81 % (45-75) H Lymphocytes % (Manual) 8 % (20-45) L Monocytes % (Manual) 10 % (1-10) Eosinophils % (Manual) 1 % (0-3) Basophils % (Manual) 0 % (0-2) Band Neutrophils 0 % (0-8) Platelet Estimate Adequate Platelet Morphology Normal Hypochromasia 1+ Microcytosis 2+ Sodium Level 137 MMOL/L (136-145) Potassium Level 3.5 MMOL/L (3.5-5.1) Chloride Level 100 MMOL/L (98-107) Carbon Dioxide Level 30 MMOL/L (21-32) Anion Gap 7 mmol/L (5-15) Blood Urea Nitrogen 7 mg/dL (7-18) Creatinine 0.5 MG/DL (0.55-1.30) L Estimat Glomerular Filtration Rate > 60 mL/min (>60) Glucose Level 75 MG/DL (74-106) Calcium Level 9.0 MG/DL (8.5-10.1) Height (Feet): 5 Height (Inches): 10.00 Weight (Pounds): 229 General Appearance: WD/WN, no apparent distress, alert Cardiovascular: normal rate Respiratory/Chest: normal breath sounds, no respiratory distress Abdominal Exam: normal bowel sounds, non tender, soft Extremities: normal range of motion, non-tender Jammie Cote N.P. May 05, 2017 11:31 JUANITA MILNER May 09, 2017 07:15
--- NOTE | 2017-05-05 11:36 | Nephrology Progress Note ---
Assessment/Plan Assessment 1. renal cell carcinoma 2. hypokalemia 3. Hypertension. 4. Atrial fibrillation. 5.malnutrition 6.adrenal mass 7.pleural effusion Plan plan fallow up with urine study monitoring renal function MRI of abdomen to evaluate renal mass may need biopsy monitoring electrolyte closely avoid NSAID Subjective Constitutional: Reports: no symptoms HEENT: Reports: no symptoms Genitourinary: Reports: no symptoms Neurologic/Psychiatric: Reports: no symptoms Subjective no acute events no complaints Objective Objective Last 24 Hour Vital Signs Date Time Temp Pulse Resp B/P (MAP) Pulse Ox O2 Delivery O2 Flow Rate FiO2 05/05/17 11:20 76 135/89 05/05/17 05:41 135/89 05/05/17 04:00 97.5 76 20 135/89 93 97.5 05/05/17 00:00 98.6 62 20 128/79 94 98.6 05/04/17 22:32 77 138/76 05/04/17 22:32 138/76 05/04/17 20:00 98.2 77 20 138/76 97 98.2 05/04/17 15:57 98.7 75 21 135/74 99 Room Air 98.7 05/04/17 14:38 98.4 05/04/17 13:43 149/76 05/04/17 13:39 98.4 Intake and Output 05/04/17 05/05/17 19:00 07:00 Intake Total 1040 ml 500 ml Balance 1040 ml 500 ml Intake Oral 1040 ml 500 ml # Voids 3 7 Laboratory Tests 05/05/17 05:10: White Blood Count 13.5H, Red Blood Count 3.46L, Hemoglobin 7.6L, Hematocrit 24.9L, Mean Corpuscular Volume 72L, Mean Corpuscular Hemoglobin 22.0L, Mean Corpuscular Hemoglobin Concent 30.6L, Red Cell Distribution Width 18.0H, Platelet Count 383, Mean Platelet Volume 5.2L, Neutrophils (%) (Auto) , Lymphocytes (%) (Auto) , Monocytes (%) (Auto) , Eosinophils (%) (Auto) , Basophils (%) (Auto) , Differential Total Cells Counted 100, Neutrophils % ( Manual) 81H, Lymphocytes % (Manual) 8L, Monocytes % (Manual) 10, Eosinophils % ( Manual) 1, Basophils % (Manual) 0, Band Neutrophils 0, Platelet Estimate Adequate, Platelet Morphology Normal, Hypochromasia 1+, Microcytosis 2+, Sodium Level 137, Potassium Level 3.5, Chloride Level 100, Carbon Dioxide Level 30, Anion Gap 7, Blood Urea Nitrogen 7, Creatinine 0.5L, Estimat Glomerular Filtration Rate > 60, Glucose Level 75, Calcium Level 9.0 Height (Feet): 5 Height (Inches): 10.00 Weight (Pounds): 229 Objective HEAD AND NECK: No JVP. No LAD. No thyromegaly. Head is atraumatic and normocephalic. Extraocular movements intact. LUNGS: Clear to auscultation. CARDIAC: Regular rate and rhythm. S1 and S2. No murmur. No rub. ABDOMEN: Soft, nontender, and nondistended. EXTREMITIES: No edema. No clubbing. No cyanosis. PROMISE AZUL May 05, 2017 11:36
[2017-05-05 12:00] VITALS: BP 129/73
--- NOTE | 2017-05-05 13:51 | General Progress Note ---
Assessment/Plan Problem List: (1) HTN (hypertension) ICD Codes: I10 - Essential (primary) hypertension SNOMED: 07247587 (2) Hypoalbuminemia ICD Codes: E88.09 - Other disorders of plasma-protein metabolism, not elsewhere classified SNOMED: 442418305 (3) Anemia ICD Codes: D64.9 - Anemia, unspecified SNOMED: 637522779 Qualifiers: Qualified Codes: D64.9 - Anemia, unspecified (4) Pneumonia ICD Codes: J18.9 - Pneumonia, unspecified organism SNOMED: 808557669 Qualifiers: Qualified Codes: J18.1 - Lobar pneumonia, unspecified organism (5) COPD (chronic obstructive pulmonary disease) ICD Codes: J44.9 - Chronic obstructive pulmonary disease, unspecified SNOMED: 74891318 (6) Urinary tract infection ICD Codes: N39.0 - Urinary tract infection, site not specified SNOMED: 28101178 (7) Shortness of breath ICD Codes: R06.02 - Shortness of breath SNOMED: 996965750 (8) Renal cancer ICD Codes: C64.9 - Malignant neoplasm of unspecified kidney, except renal pelvis SNOMED: 493523148 Status: unchanged Assessment/Plan ot pt diet abx dc w hospice Subjective Constitutional: Reports: weakness Allergies: Coded Allergies: FUROSEMIDE (Verified Allergy, Unknown, 04/25/17) All Systems: reviewed and negative except above Subjective calm in bed sl confused Objective Last 24 Hour Vital Signs Date Time Temp Pulse Resp B/P (MAP) Pulse Ox O2 Delivery O2 Flow Rate FiO2 05/05/17 12:00 98.0 70 18 129/73 97 Room Air 98.0 05/05/17 11:20 76 135/89 05/05/17 08:00 97.2 72 18 133/69 95 Room Air 97.2 05/05/17 05:41 135/89 05/05/17 04:00 97.5 76 20 135/89 93 97.5 05/05/17 00:00 98.6 62 20 128/79 94 98.6 05/04/17 22:32 77 138/76 05/04/17 22:32 138/76 05/04/17 20:00 98.2 77 20 138/76 97 98.2 05/04/17 15:57 98.7 75 21 135/74 99 Room Air 98.7 05/04/17 14:38 98.4 Intake and Output 05/04/17 05/05/17 19:00 07:00 Intake Total 1040 ml 500 ml Balance 1040 ml 500 ml Intake Oral 1040 ml 500 ml # Voids 3 7 Laboratory Tests 05/05/17 05:10: White Blood Count 13.5H, Red Blood Count 3.46L, Hemoglobin 7.6L, Hematocrit 24.9L, Mean Corpuscular Volume 72L, Mean Corpuscular Hemoglobin 22.0L, Mean Corpuscular Hemoglobin Concent 30.6L, Red Cell Distribution Width 18.0H, Platelet Count 383, Mean Platelet Volume 5.2L, Neutrophils (%) (Auto) , Lymphocytes (%) (Auto) , Monocytes (%) (Auto) , Eosinophils (%) (Auto) , Basophils (%) (Auto) , Differential Total Cells Counted 100, Neutrophils % ( Manual) 81H, Lymphocytes % (Manual) 8L, Monocytes % (Manual) 10, Eosinophils % ( Manual) 1, Basophils % (Manual) 0, Band Neutrophils 0, Platelet Estimate Adequate, Platelet Morphology Normal, Hypochromasia 1+, Microcytosis 2+, Sodium Level 137, Potassium Level 3.5, Chloride Level 100, Carbon Dioxide Level 30, Anion Gap 7, Blood Urea Nitrogen 7, Creatinine 0.5L, Estimat Glomerular Filtration Rate > 60, Glucose Level 75, Calcium Level 9.0 Height (Feet): 5 Height (Inches): 10.00 Weight (Pounds): 229 General Appearance: lethargic EENT: normal ENT inspection Neck: normal alignment Cardiovascular: normal peripheral pulses, normal rate, regular rhythm Respiratory/Chest: decreased breath sounds Abdomen: normal bowel sounds, non tender, soft Extremities: normal inspection Edema: no edema noted Arm (L), no edema noted Arm (R), no edema noted Leg (L), no edema noted Leg (R), no edema noted Pedal (L), no edema noted Pedal (R), no edema noted Generalized Neurologic: motor weakness Skin: normal pigmentation, warm/dry ANNA LIRA May 05, 2017 13:51
--- NOTE | 2017-05-05 15:21 | Pulmonology Progress Note ---
Assessment/Plan Assessment/Plan ASSESSMENT Metastatic renal cell carcinoma with mets to bone Pathologic compression fracture of spine Pneumonia Bilateral Pleural effusion L>R s/p thoracentesis 05/01-1400 ml COPD (chronic obstructive pulmonary disease) PAF HTN anemia s/p EGD gastritis MDD PLAN OF CARE MS floor O2 HHN prn CXR left pleural effusion; bilateral infiltrates, US chest bilateral pleural effusion, moderate CT chest Large left greater than right bilateral pleural effusions. Resultant compressive atelectasis of most of both lower lobes. Noted T12 vertebral body compression/burst fracture s/p thoracentesis-1400ml clear ponce fluid fup with cytology CXR after tap- no PNT, decrease in size of L pleural effusion CT A/P: 6.2 x 7.3 x 7 cm complex right lower pole renal mass. Multiloculated central low-attenuation components either represent intracystic components or central necrosis. Findings are suspicious for renal cell carcinoma Evidence of multiple osseous metastases. Resultant pathologic burst/compression fracture of the T12 vertebral body and posterior elements, as well as pathologic fractures of L4 and L5, bony involvement elsewhere as described Low attenuation 2 cm left adrenal mass with enhancing periphery. This is also suspicious for metastasis, although could represent an atypical benign adenoma anemia w/up c/w anemia fo chronic disease, stool OB negative HH at baseline, keep Hgb above 7 GI follows s/p EGD + gastritis biopsy + chronic gastritis, no H pylori outpt colonoscopy if desired influenza screen, blood cx and pleural fluid cx all negative s/p Rx with abx for possible PNA ID follwos keep off abx and observe, afebrile persistent leucocytosis, probably at least partially due to metastatic disease cardio follows BB, no a/coagulation due to anemia spont converted to SR BP management with BB and Hydralazine DVT GI prophylaxis PT/OT nephro follows monitor renal parameters, correct lytes as needed and avoid nephrotoxic psych follows diagnosed with MDD, psych med regimen optimized DNR/DNI sttaus dc to SNF with hospice per family agreement case discussed and evaluated by supervising physician Subjective Allergies: Coded Allergies: FUROSEMIDE (Verified Allergy, Unknown, 04/25/17) Subjective denies chest pain, SOB Objective Last 24 Hour Vital Signs Date Time Temp Pulse Resp B/P (MAP) Pulse Ox O2 Delivery O2 Flow Rate FiO2 05/05/17 15:00 98.0 05/05/17 14:21 129/73 05/05/17 12:00 98.0 70 18 129/73 97 Room Air 98.0 05/05/17 11:20 76 135/89 05/05/17 08:00 97.2 72 18 133/69 95 Room Air 97.2 05/05/17 05:41 135/89 05/05/17 04:00 97.5 76 20 135/89 93 97.5 05/05/17 00:00 98.6 62 20 128/79 94 98.6 05/04/17 22:32 77 138/76 05/04/17 22:32 138/76 05/04/17 20:00 98.2 77 20 138/76 97 98.2 05/04/17 15:57 98.7 75 21 135/74 99 Room Air 98.7 Intake and Output 05/04/17 05/05/17 19:00 07:00 Intake Total 1040 ml 500 ml Balance 1040 ml 500 ml Intake Oral 1040 ml 500 ml # Voids 3 7 General Appearance: no acute distress, other - awake, alert, weak male HEENT: normocephalic, atraumatic, anicteric Respiratory/Chest: decreased breath sounds Cardiovascular: normal rate Abdomen: soft, non tender Extremities: no edema Neurologic/Psychiatric: abnormal gait, alert, responsive Musculoskeletal: atrophy - BLE Laboratory Tests 05/05/17 05:10: White Blood Count 13.5H, Red Blood Count 3.46L, Hemoglobin 7.6L, Hematocrit 24.9L, Mean Corpuscular Volume 72L, Mean Corpuscular Hemoglobin 22.0L, Mean Corpuscular Hemoglobin Concent 30.6L, Red Cell Distribution Width 18.0H, Platelet Count 383, Mean Platelet Volume 5.2L, Neutrophils (%) (Auto) , Lymphocytes (%) (Auto) , Monocytes (%) (Auto) , Eosinophils (%) (Auto) , Basophils (%) (Auto) , Differential Total Cells Counted 100, Neutrophils % ( Manual) 81H, Lymphocytes % (Manual) 8L, Monocytes % (Manual) 10, Eosinophils % ( Manual) 1, Basophils % (Manual) 0, Band Neutrophils 0, Platelet Estimate Adequate, Platelet Morphology Normal, Hypochromasia 1+, Microcytosis 2+, Sodium Level 137, Potassium Level 3.5, Chloride Level 100, Carbon Dioxide Level 30, Anion Gap 7, Blood Urea Nitrogen 7, Creatinine 0.5L, Estimat Glomerular Filtration Rate > 60, Glucose Level 75, Calcium Level 9.0 Current Medications Medications (Trade) Dose Ordered Sig/Juan Pablo Route PRN Reason Start Time Stop Time Status Last Admin Dose Admin Acetaminophen (Tylenol) 650 mg Q4H PRN ORAL Mild Pain/Temp > 100.5 05/02/17 18:45 05/25/17 18:44 05/03/17 21:02 Acetaminophen/ Hydrocodone Bitart (Weed 10/325) 1 tab Q6H PRN ORAL Moderate to Severe Pain 05/02/17 19:00 05/09/17 18:59 05/05/17 15:00 Heparin Sodium (Porcine) (Heparin 5000 units/ml) 5,000 units EVERY 12 HOURS SUBQ 05/02/17 21:00 05/25/17 20:59 05/05/17 11:24 Hydralazine HCl (Apresoline) 25 mg Q8HR ORAL 05/02/17 22:00 05/27/17 22:29 05/05/17 14:21 Metoprolol Tartrate (Lopressor) 50 mg Q12HR ORAL 05/02/17 21:00 05/28/17 08:59 05/05/17 11:20 Pantoprazole (Protonix) 40 mg Q12HR IVP 05/02/17 21:00 05/27/17 10:59 05/04/17 10:16 Sertraline HCl (Zoloft) 25 mg DAILY ORAL 05/03/17 09:00 05/28/17 08:59 05/05/17 11:20 Anival CesarYaa mendoza NP May 05, 2017 15:21
--- NOTE | 2017-05-05 15:56 | Infectious Diseases Prog Note ---
Assessment/Plan Assessment/Plan SOB- PNA vs pulmonary edema, s/p rx -CT chest 05/01: Large left greater than right bilateral pleural effusions. Resultant compressive atelectasis of most of both lower lobes. T12 vertebral body compression/burst fracture deformity, as described, with posterior element involvement as well. Suspect that this is a pathologic fracture secondary to underlying osteolytic process. Posterolateral ninth rib deformity. Possibly just a healed fracture deformity, but complex appearance and some internal cortical discontinuity could indicate underlying osteolytic process. There is also a healed lateral left eighth rib fracture deformity -CXR 04/28: Persistent interstitial congestion. Suggestion of slight improvement of bilateral basilar hazy opacities, may indicate decreasing airspace disease or decreasing pleural fluid -CXR: Left-sided pleural effusion. Bibasilar infiltrates or edema. Cardiomegaly -sp cx normal winnie , C. albicans (colonizer) Fever , resolved Leukocytosis, persistent but improved- suspect multifactorial to possible PNA, possible parapneumonic effusion and possible metastatic disease (?RCC) MEtastatic disease per CT findings- suggest possible RCC B/L moderate pleural effusion- ?parapneumonic vs fluid related vs malignant -Chest US: Bilateral moderate-sized pleural effusions are demonstrated, approximately equal in size. Atelectatic right lower lobe is also noted. Probable lower GI bleed, ( tarry stool ) -occult blood neg repeat :neg -CT abd/p w/: 6.2 x 7.3 x 7 cm complex right lower pole renal mass. Multiloculated central low-attenuation components either represent intracystic components or central necrosis. Findings are suspicious for renal cell carcinoma. Evidence of multiple osseous metastases. Resultant pathologic burst/ compression fracture of the T12 vertebral body and posterior elements, as well as pathologic fractures of L4 and L5, bony involvement elsewhere as described. Low attenuation 2 cm left adrenal mass with enhancing periphery. This is also suspicious for metastasis, although could represent an atypical benign adenoma. Mild rectal wall thickening and edema of the presacral fat, suspicious for proctitis.There appears to be mild distention of the rectum by stool, so findings could represent mild fecal impaction with stercoral colitis. Borderline splenomegaly. Subcentimeter low-attenuation right lobe liver lesion, too small to characterize, most likely benign simple cyst or bile hamartoma. No further follow-up necessary Anemia- Multiple rib fractures- ?pathologic , ?MM vs renal CA given CT findings Thoracic compression fracture HTN Afib Plan: -Continue to monitor off abx. Patient will be discharged on hospice. 05/03 SP Zosyn #5 -04/29 SP Ceftriaxone/azithromycin #4 -04/26 SP ZOsyn #2 -04/25 SP LEvaquin x1 -f/u cx Discussed with RN. Subjective Allergies: Coded Allergies: FUROSEMIDE (Verified Allergy, Unknown, 04/25/17) Subjective afebrile leukocytosis improving cx NTD Objective Vital Signs Last 24 Hour Vital Signs Date Time Temp Pulse Resp B/P (MAP) Pulse Ox O2 Delivery O2 Flow Rate FiO2 05/05/17 15:00 98.0 05/05/17 14:21 129/73 05/05/17 12:00 98.0 70 18 129/73 97 Room Air 98.0 05/05/17 11:20 76 135/89 05/05/17 08:00 97.2 72 18 133/69 95 Room Air 97.2 05/05/17 05:41 135/89 05/05/17 04:00 97.5 76 20 135/89 93 97.5 05/05/17 00:00 98.6 62 20 128/79 94 98.6 05/04/17 22:32 77 138/76 05/04/17 22:32 138/76 05/04/17 20:00 98.2 77 20 138/76 97 98.2 05/04/17 15:57 98.7 75 21 135/74 99 Room Air 98.7 Height (Feet): 5 Height (Inches): 10.00 Weight (Pounds): 229 Objective General Appearance: no apparent distress, alert,non-toxic HEENT: normocephalic, atraumatic, normal pharynx, Neck: full range of motion, supple/symm/no masses Respiratory: chest non-tender, lungs clear, normal breath sounds, speaking full sentences Cardiovascular : regular rate, rhythm, no edema Gastrointestinal: normal bowel sounds, non tender, soft, non-distended, no guarding, no rebound Genitourinary: normal inspection, no CVA tenderness Musculoskeletal: back normal, gait/station normal, normal range of motion, non- tender Neurologic: alert, oriented x3, responsive, motor strength/tone normal, sensory intact, speech normal Skin: normal color, no rash, warm/dry, well hydrated Lymphatic: no adenopathy Laboratory Tests Test 05/05/17 05:10 White Blood Count 13.5 K/UL (4.8-10.8) H Red Blood Count 3.46 M/UL (4.70-6.10) L Hemoglobin 7.6 G/DL (14.2-18.0) L Hematocrit 24.9 % (42.0-52.0) L Mean Corpuscular Volume 72 FL (80-99) L Mean Corpuscular Hemoglobin 22.0 PG (27.0-31.0) L Mean Corpuscular Hemoglobin Concent 30.6 G/DL (32.0-36.0) L Red Cell Distribution Width 18.0 % (11.6-14.8) H Platelet Count 383 K/UL (150-450) Mean Platelet Volume 5.2 FL (6.5-10.1) L Neutrophils (%) (Auto) % (45.0-75.0) Lymphocytes (%) (Auto) % (20.0-45.0) Monocytes (%) (Auto) % (1.0-10.0) Eosinophils (%) (Auto) % (0.0-3.0) Basophils (%) (Auto) % (0.0-2.0) Differential Total Cells Counted 100 Neutrophils % (Manual) 81 % (45-75) H Lymphocytes % (Manual) 8 % (20-45) L Monocytes % (Manual) 10 % (1-10) Eosinophils % (Manual) 1 % (0-3) Basophils % (Manual) 0 % (0-2) Band Neutrophils 0 % (0-8) Platelet Estimate Adequate Platelet Morphology Normal Hypochromasia 1+ Microcytosis 2+ Sodium Level 137 MMOL/L (136-145) Potassium Level 3.5 MMOL/L (3.5-5.1) Chloride Level 100 MMOL/L (98-107) Carbon Dioxide Level 30 MMOL/L (21-32) Anion Gap 7 mmol/L (5-15) Blood Urea Nitrogen 7 mg/dL (7-18) Creatinine 0.5 MG/DL (0.55-1.30) L Estimat Glomerular Filtration Rate > 60 mL/min (>60) Glucose Level 75 MG/DL (74-106) Calcium Level 9.0 MG/DL (8.5-10.1) Current Medications Medications (Trade) Dose Ordered Sig/Juan Pablo Route PRN Reason Start Time Stop Time Status Last Admin Dose Admin Acetaminophen (Tylenol) 650 mg Q4H PRN ORAL Mild Pain/Temp > 100.5 05/02/17 18:45 05/25/17 18:44 05/03/17 21:02 Acetaminophen/ Hydrocodone Bitart (Liberal 10/325) 1 tab Q6H PRN ORAL Moderate to Severe Pain 05/02/17 19:00 05/09/17 18:59 05/05/17 15:00 Heparin Sodium (Porcine) (Heparin 5000 units/ml) 5,000 units EVERY 12 HOURS SUBQ 05/02/17 21:00 05/25/17 20:59 05/05/17 11:24 Hydralazine HCl (Apresoline) 25 mg Q8HR ORAL 05/02/17 22:00 05/27/17 22:29 05/05/17 14:21 Metoprolol Tartrate (Lopressor) 50 mg Q12HR ORAL 05/02/17 21:00 05/28/17 08:59 05/05/17 11:20 Pantoprazole (Protonix) 40 mg Q12HR IVP 05/02/17 21:00 05/27/17 10:59 05/04/17 10:16 Sertraline HCl (Zoloft) 25 mg DAILY ORAL 05/03/17 09:00 05/28/17 08:59 05/05/17 11:20 Ofelia Mak M.D. May 05, 2017 15:56
[2017-05-05 16:00] VITALS: BP 135/85
--- NOTE | 2017-05-05 17:21 | Cardiology Progress Note ---
Assessment/Plan Assessment/Plan 1. Paroxysmal atrial fibrillation, in sinus rhythm, continue metoprolol, recommend Xarelto as she is high risk per CHADS-Vasc scoring system. 2. History of hypertension, well controlled, left ventricular ejection fraction is ~75%. 3. Large left pleural effusion. 4. History of anemia. 5. History of psychiatric disorder. 6. Metastatic renal call carcinoma. Subjective Subjective No cardiac events. Denies chest pain or SOB. Objective Last 24 Hour Vital Signs Date Time Temp Pulse Resp B/P (MAP) Pulse Ox O2 Delivery O2 Flow Rate FiO2 05/05/17 15:59 98.0 05/05/17 15:00 98.0 05/05/17 14:21 129/73 05/05/17 12:00 98.0 70 18 129/73 97 Room Air 98.0 05/05/17 11:20 76 135/89 05/05/17 08:00 97.2 72 18 133/69 95 Room Air 97.2 05/05/17 05:41 135/89 05/05/17 04:00 97.5 76 20 135/89 93 97.5 05/05/17 00:00 98.6 62 20 128/79 94 98.6 05/04/17 22:32 77 138/76 05/04/17 22:32 138/76 05/04/17 20:00 98.2 77 20 138/76 97 98.2 Intake and Output 05/04/17 05/05/17 19:00 07:00 Intake Total 1040 ml 500 ml Balance 1040 ml 500 ml Intake Oral 1040 ml 500 ml # Voids 3 7 2D Echo: EF 60%,Mod LVH,Grade I LVDD,mild MR,Pleural eff.,RVSP 41, Small Pericar Eff Laboratory Tests Test 05/05/17 05:10 White Blood Count 13.5 K/UL (4.8-10.8) H Red Blood Count 3.46 M/UL (4.70-6.10) L Hemoglobin 7.6 G/DL (14.2-18.0) L Hematocrit 24.9 % (42.0-52.0) L Mean Corpuscular Volume 72 FL (80-99) L Mean Corpuscular Hemoglobin 22.0 PG (27.0-31.0) L Mean Corpuscular Hemoglobin Concent 30.6 G/DL (32.0-36.0) L Red Cell Distribution Width 18.0 % (11.6-14.8) H Platelet Count 383 K/UL (150-450) Mean Platelet Volume 5.2 FL (6.5-10.1) L Neutrophils (%) (Auto) % (45.0-75.0) Lymphocytes (%) (Auto) % (20.0-45.0) Monocytes (%) (Auto) % (1.0-10.0) Eosinophils (%) (Auto) % (0.0-3.0) Basophils (%) (Auto) % (0.0-2.0) Differential Total Cells Counted 100 Neutrophils % (Manual) 81 % (45-75) H Lymphocytes % (Manual) 8 % (20-45) L Monocytes % (Manual) 10 % (1-10) Eosinophils % (Manual) 1 % (0-3) Basophils % (Manual) 0 % (0-2) Band Neutrophils 0 % (0-8) Platelet Estimate Adequate Platelet Morphology Normal Hypochromasia 1+ Microcytosis 2+ Sodium Level 137 MMOL/L (136-145) Potassium Level 3.5 MMOL/L (3.5-5.1) Chloride Level 100 MMOL/L (98-107) Carbon Dioxide Level 30 MMOL/L (21-32) Anion Gap 7 mmol/L (5-15) Blood Urea Nitrogen 7 mg/dL (7-18) Creatinine 0.5 MG/DL (0.55-1.30) L Estimat Glomerular Filtration Rate > 60 mL/min (>60) Glucose Level 75 MG/DL (74-106) Calcium Level 9.0 MG/DL (8.5-10.1) Objective HEENT: Atraumatic and normocephalic. Anicteric. Pupils are equal, round, and reactive to light and accommodation. Extraocular muscles intact. There is poor dentition. NECK: JVP less than 5 centimeter. No carotid bruit. Carotid upstrokes 2+ bilaterally. CARDIOVASCULAR: Normal S1 and S2. Regular rate and rhythm. No murmurs, gallops, or rubs. PMI is at fourth intercostal space in the midclavicular line. LUNGS: Diminished breath sounds in both bases. ABDOMEN: Soft, nontender, and nondistended. No hepatosplenomegaly. Positive bowel sounds. EXTREMITIES: No evidence of edema, clubbing, or cyanosis. ELISABETH CONTE May 05, 2017 17:21
[2017-05-05 20:00] VITALS: BP 134/83
[2017-05-05] MEDS ORDERED: NS 275ml ONE (20:39)
--- NOTE | 2017-05-05 22:15 | Consultation ---
DATE OF CONSULTATION: 05/05/2017 UROLOGY CONSULTATION CONSULTING PHYSICIAN: Storm Faust M.D. ATTENDING/CONSULTING PHYSICIAN: Ameya Fulton M.D. CHIEF COMPLAINT/HISTORY OF PRESENT ILLNESS: I was asked by Dr. Fulton to evaluate this 62-year-old gentleman regarding history of likely renal cell carcinoma with bony metastasis. Briefly, the patient was in [facility]. He has history of psychiatric illness. He presented to the hospital shortness of breath for two days duration and some coughing, he was diagnosed with pneumonia and sepsis. Workup with imaging revealed evidence of a bony lytic lesions and a renal mass, which is likely the source of same. Given the above, I was asked to evaluate the patient. PAST MEDICAL HISTORY: 1. COPD. 2. Hypertension. 3. Psychiatric illness. 4. Pneumonia. PAST SURGICAL HISTORY: Unknown. MEDICATIONS: Please see chart for current medication administration details. Briefly, the patient is receiving levofloxacin for antibiotic coverage. ALLERGIES: Lasix. SOCIAL HISTORY: Unremarkable for tobacco, alcohol, or drug use. FAMILY HISTORY: Noncontributory. REVIEW OF SYSTEMS: A 12-system review of systems essentially unremarkable outside of what is described above. PHYSICAL EXAMINATION: GENERAL: The patient is a older gentleman, awake and alert, somewhat oriented, no obvious distress. HEENT: NC/AT. EOMI. NECK: Supple. Oropharynx clear. CHEST: Within normal limits. ABDOMEN: Soft, flat, nontender and nondistended. EXTREMITIES: Warm and well-perfused. No cyanosis, clubbing or edema. LABORATORY AND DIAGNOSTIC DATA: White blood cell count 13.5, hematocrit 24.9, platelets 383. PT 12.9, INR 1.2 and PTT 39. Sodium 137, potassium 3.5, chloride 100, bicarbonate 30, BUN 7, creatinine 0.5 and glucose 75. Calcium 9.0. Urinalysis specific gravity 1.020, pH 5.0, dip test of 1+ protein, 1+ ketones, 1+ leukocyte esterase and microanalysis essentially unremarkable. Diagnostic imaging, CT scan of the abdomen and pelvis reveals a 6 x 7 x 7 cm complex mass coming off the lower pole of the right kidney with enhancement of the periphery and multiple septations. The left kidney is unremarkable. There is a fracture of the T12 vertebral body, which appears to have pathologic elements to it. There is also considerable osteolysis. There is evidence of multiple osseous metastases. ASSESSMENT AND PLAN: In summary, the patient is a 62-year-old gentleman with a history of pneumonia. He presented to the hospital with a history of the same and workup including chest CT and abdominal CT revealed a large right kidney mass consistent with malignancy. Unfortunately, there is also evidence of bony metastasis. Physical exam is essentially unremarkable outside of some confusion. Unfortunately, the patient appears to have renal cell carcinoma, which has spread into his bones as such there is no role for surgical extirpation for treatment of his kidney. I would suggest medical oncology evaluation for consideration of alternative therapies given his bony metastases. Thank you for allowing me to participate in the care this unfortunate gentleman. Please do not hesitate to contact me for any questions that you may further have regarding his care. I will see him with you as needed. Storm Faust M.D. DR: BARRY JOB#: [id number] CC:
--- NOTE | 2017-05-05 23:46 | General Progress Note ---
Assessment/Plan Assessment/Plan Assessment and Recs: 1. Renal cell carcinoma stage IV with osseous metastasis including T12 vertebral compression fracture. reviewed tumor markers, have discussed with other consultants --> have discussed with patient and he has refused/declined a ct-guided biopsy at this time, clinical picture represents RCC. Recommend biopsy as outpatient for definitive diagnosis --> most likely is renal cell carcinoma given clinical findings, given very poor performance status, recommend snf placement and palliative services/ comfort care measures, hospice care --> have discussed above with primary doctor, recommended hospice care 2. Anemia of chronic disease. ferritin 1617 --> Transfuse if hgb <7 --> Monitor closely and trend cbc. 3. Bilateral pleural effusion, parapneumonic versus versus malignancy. 4. T12 compression fracture. 5. Atrial fibrillation. 6. Hypertension. --> Monitor BP, improved at this time Subjective Date patient seen: May 04, 2017 Constitutional: Denies: no symptoms, chills, diaphoresis, fever, malaise, weakness, other HEENT: Denies: no symptoms, eye pain, blurred vision, tearing, double vision, ear pain, ear discharge, nose pain, nose congestion, throat pain, throat swelling, mouth pain, mouth swelling, other Cardiovascular: Denies: no symptoms, chest pain, edema, irregular heart rate, lightheadedness, palpitations, syncope, other Respiratory: Denies: no symptoms, cough, orthopnea, shortness of breath, SOB with excertion, SOB at rest, sputum, stridor, wheezing, other Gastrointestinal/Abdominal: Denies: no symptoms, abdomen distended, abdominal pain, black stools, tarry stools, blood in stool, constipated, diarrhea, difficulty swallowing, nausea, poor appetite, poor fluid intake, rectal bleeding , vomiting, other Genitourinary: Denies: no symptoms, burning, discharge, frequency, flank pain, hematuria, incontinence, pain, urgency, other Neurologic/Psychiatric: Denies: no symptoms, anxiety, depressed, emotional problems, headache, numbness, paresthesia, pre-existing deficit, seizure, tingling, tremors, weakness, other Allergies: Coded Allergies: FUROSEMIDE (Verified Allergy, Unknown, 04/25/17) Subjective Encephalopathic. No fever. Resting in bed Objective Last 24 Hour Vital Signs Date Time Temp Pulse Resp B/P (MAP) Pulse Ox O2 Delivery O2 Flow Rate FiO2 3/23/18 20:00 97.2 95 19 134/83 94 Room Air 97.2 05/05/17 16:00 98.4 89 19 135/85 95 Room Air 98.4 05/05/17 15:59 98.0 05/05/17 15:00 98.0 05/05/17 14:21 129/73 05/05/17 12:00 98.0 70 18 129/73 97 Room Air 98.0 05/05/17 11:20 76 135/89 05/05/17 08:00 97.2 72 18 133/69 95 Room Air 97.2 05/05/17 05:41 135/89 05/05/17 04:00 97.5 76 20 135/89 93 97.5 05/05/17 00:00 98.6 62 20 128/79 94 98.6 Intake and Output 05/04/17 05/05/17 19:00 07:00 Intake Total 1040 ml 500 ml Balance 1040 ml 500 ml Intake Oral 1040 ml 500 ml # Voids 3 7 Laboratory Tests 05/05/17 05:10: White Blood Count 13.5H, Red Blood Count 3.46L, Hemoglobin 7.6L, Hematocrit 24.9L, Mean Corpuscular Volume 72L, Mean Corpuscular Hemoglobin 22.0L, Mean Corpuscular Hemoglobin Concent 30.6L, Red Cell Distribution Width 18.0H, Platelet Count 383, Mean Platelet Volume 5.2L, Neutrophils (%) (Auto) , Lymphocytes (%) (Auto) , Monocytes (%) (Auto) , Eosinophils (%) (Auto) , Basophils (%) (Auto) , Differential Total Cells Counted 100, Neutrophils % ( Manual) 81H, Lymphocytes % (Manual) 8L, Monocytes % (Manual) 10, Eosinophils % ( Manual) 1, Basophils % (Manual) 0, Band Neutrophils 0, Platelet Estimate Adequate, Platelet Morphology Normal, Hypochromasia 1+, Microcytosis 2+, Sodium Level 137, Potassium Level 3.5, Chloride Level 100, Carbon Dioxide Level 30, Anion Gap 7, Blood Urea Nitrogen 7, Creatinine 0.5L, Estimat Glomerular Filtration Rate > 60, Glucose Level 75, Calcium Level 9.0 Height (Feet): 5 Height (Inches): 10.00 Weight (Pounds): 229 Respiratory/Chest: decreased breath sounds Abdomen: soft Chilo Sidhu MD May 05, 2017 23:46
--- NOTE | 2017-05-05 23:48 | General Progress Note ---
Assessment/Plan Assessment/Plan Assessment and Recs: 1. Renal cell carcinoma stage IV with osseous metastasis including T12 vertebral compression fracture. reviewed tumor markers, have discussed with other consultants --> have discussed with patient and he has refused/declined a ct-guided biopsy at this time, clinical picture represents RCC. Recommend biopsy as outpatient for definitive diagnosis --> most likely is renal cell carcinoma given clinical findings, given very poor performance status, recommend snf placement and palliative services/ comfort care measures, hospice care --> have discussed above with primary doctor, recommended hospice care 2. Anemia of chronic disease. ferritin 1617 --> Transfuse if hgb <7 --> Monitor closely and trend cbc. --> Hemoglobin has been within 7-8, will need prbc if levels drop below goal 3. Bilateral pleural effusion, parapneumonic versus versus malignancy. 4. T12 compression fracture. 5. Atrial fibrillation. 6. Hypertension. --> Monitor BP, improved at this time 7. Leukocytosis. --> Improving Subjective Date patient seen: May 05, 2017 Constitutional: Denies: no symptoms, chills, diaphoresis, fever, malaise, weakness, other HEENT: Denies: no symptoms, eye pain, blurred vision, tearing, double vision, ear pain, ear discharge, nose pain, nose congestion, throat pain, throat swelling, mouth pain, mouth swelling, other Cardiovascular: Denies: no symptoms, chest pain, edema, irregular heart rate, lightheadedness, palpitations, syncope, other Respiratory: Denies: no symptoms, cough, orthopnea, shortness of breath, SOB with excertion, SOB at rest, sputum, stridor, wheezing, other Gastrointestinal/Abdominal: Denies: no symptoms, abdomen distended, abdominal pain, black stools, tarry stools, blood in stool, constipated, diarrhea, difficulty swallowing, nausea, poor appetite, poor fluid intake, rectal bleeding , vomiting, other Genitourinary: Denies: no symptoms, burning, discharge, frequency, flank pain, hematuria, incontinence, pain, urgency, other Neurologic/Psychiatric: Denies: no symptoms, anxiety, depressed, emotional problems, headache, numbness, paresthesia, pre-existing deficit, seizure, tingling, tremors, weakness, other Endocrine: Denies: no symptoms, excessive sweating, flushing, intolerance to cold, intolerance to heat, increased hunger, increased thirst, increased urine, unexplained weight gain, unexplained weight loss, other Hematologic/Lymphatic: Reports: anemia Allergies: Coded Allergies: FUROSEMIDE (Verified Allergy, Unknown, 04/25/17) Subjective Confused. NAD. Leukocytosis improved. Objective Last 24 Hour Vital Signs Date Time Temp Pulse Resp B/P (MAP) Pulse Ox O2 Delivery O2 Flow Rate FiO2 05/05/17 20:00 97.2 95 19 134/83 94 Room Air 97.2 05/05/17 16:00 98.4 89 19 135/85 95 Room Air 98.4 05/05/17 15:59 98.0 05/05/17 15:00 98.0 05/05/17 14:21 129/73 05/05/17 12:00 98.0 70 18 129/73 97 Room Air 98.0 05/05/17 11:20 76 135/89 05/05/17 08:00 97.2 72 18 133/69 95 Room Air 97.2 05/05/17 05:41 135/89 05/05/17 04:00 97.5 76 20 135/89 93 97.5 05/05/17 00:00 98.6 62 20 128/79 94 98.6 Intake and Output 05/04/17 05/05/17 19:00 07:00 Intake Total 1040 ml 500 ml Balance 1040 ml 500 ml Intake Oral 1040 ml 500 ml # Voids 3 7 Laboratory Tests 05/05/17 05:10: White Blood Count 13.5H, Red Blood Count 3.46L, Hemoglobin 7.6L, Hematocrit 24.9L, Mean Corpuscular Volume 72L, Mean Corpuscular Hemoglobin 22.0L, Mean Corpuscular Hemoglobin Concent 30.6L, Red Cell Distribution Width 18.0H, Platelet Count 383, Mean Platelet Volume 5.2L, Neutrophils (%) (Auto) , Lymphocytes (%) (Auto) , Monocytes (%) (Auto) , Eosinophils (%) (Auto) , Basophils (%) (Auto) , Differential Total Cells Counted 100, Neutrophils % ( Manual) 81H, Lymphocytes % (Manual) 8L, Monocytes % (Manual) 10, Eosinophils % ( Manual) 1, Basophils % (Manual) 0, Band Neutrophils 0, Platelet Estimate Adequate, Platelet Morphology Normal, Hypochromasia 1+, Microcytosis 2+, Sodium Level 137, Potassium Level 3.5, Chloride Level 100, Carbon Dioxide Level 30, Anion Gap 7, Blood Urea Nitrogen 7, Creatinine 0.5L, Estimat Glomerular Filtration Rate > 60, Glucose Level 75, Calcium Level 9.0 Height (Feet): 5 Height (Inches): 10.00 Weight (Pounds): 229 General Appearance: no apparent distress Respiratory/Chest: decreased breath sounds Abdomen: soft Chilo Sidhu MD May 05, 2017 23:48
--- NOTE | 2017-05-08 13:52 | Discharge Summary ---
Discharge Summary Hospital Course Date of Admission Apr 25, 2017 at 15:50 Date of Discharge May 05, 2017 at 20:40 Admitting Diagnosis SOB,WEAKNESS HPI Jethro Olivares is a 62 year old male who was admitted on Apr 25, 2017 at 15:50 for Short Of Breath,Weakness Hospital Course dc summary #[id number] Discharge Discharge Disposition Patient was discharged to Hospice Facility (51) [facility] (Lemueljohan)Yaa NP May 08, 2017 13:52
--- NOTE | 2017-05-09 04:31 | Discharge Summary 2 SIG ---
DATE OF ADMISSION: 04/25/2017 DATE OF DISCHARGE: 05/05/2017 REASON FOR ADMISSION: The patient is a 62-year-old male with past medical history of chronic obstructive pulmonary disease and hypertension, presented to emergency room from long-term facility for anemia. The patient also complained of shortness of breath. He denied chest pain. Denied cough, fever, chills, or blood in the stool. In the emergency department, vital signs were stable. The patient was placed on supplemental oxygen 3 liters via nasal cannula with saturation of 97%. Laboratory workup revealed hemoglobin 8.1. Electrolytes stable. Troponin negative. Chest x-ray showed bilateral interstitial edema versus infiltrates. Leukocytosis of 12.7. The patient was pancultured and started on empiric antibiotics and admitted for further management with diagnoses of bilateral pleural effusion versus pneumonia, anemia, shortness of breath, and chronic obstructive pulmonary disease. HOSPITAL COURSE: The patient was admitted. Pulmonology, ID specialist, and GI consult initially were requested. The patient was initially admitted to telemetry floor. The patient was provided with supplemental oxygen and pulmonary toilet. Supplemental oxygen titrated to keep pulse oximetry above 92%. Pulmonary toilet consisted of handheld nebulizing and chest physical therapy. The patient was started on empiric antibiotics. ID closely followed. Influenza screen test was negative. Blood cultures were negative. Sputum culture showed Malu likely colonized as per Infectious Disease recommendation. The patient undergone CT of the head, which was negative for acute intracranial bleeding or mass effect, but showed mild chronic and age related changes. Due to the finding of bilateral pleural effusion, the patient had a chest ultrasound to evaluate for possibility of draining the pleural effusion. Chest ultrasound shows bilateral pleural effusion, left more than the right and chest x-ray next day showed persistent interstitial congestion. The patient subsequently undergone thoracentesis of left pleural effusion, which yielded 1.4 mm of cloudy ponce fluid. Chest x-ray after thoracentesis revealed no evidence of pneumothorax and decrease in size of left pleural effusion. CT of the abdomen and pelvis revealed 6.2 x 7.3 x 7 cm complex right lower pole renal mass. Findings were suspicious for renal cell carcinoma, evidence of multiple osseous metastasis. Resultant pathological /compression fracture of the T12 vertebral body and posterior elements as well as a pathological fracture of L4-L5 bony involvement elsewhere. Noted low attenuation 2 cm left adrenal mass with enhancing periphery, which was also suspicious for metastasis although could represent just a typical benign adenoma. Neurology consult was requested for possible surgical intervention. Per Urology, the patient had advanced renal cell carcinoma with the osseus metastasis and there is no role for surgical intervention given spread to the bone. He recommended Oncology evaluation. Oncologist seen and evaluated the patient. Subsequently cancer tumor markers were done, which were within normal limits, alpha-fetoprotein, CA-15-3, CA-125, and prostate specific antigen. Oncologist stated that the patient may be a candidate for oral chemotherapy, but needs initially a CT-guided biopsy of the kidney mass. Structures Engineer closely followed the patient. Per cartographic drafter, the patient exhibited paroxysmal atrial fibrillation. He recommended heart rate controlled with beta-noemi and start on Xarelto because the patient had high risk according to the CORETTA vascular score. However, the patient was anemic and Xarelto was not started. Anemia workup was consistent with anemia of chronic disease. The patient did not require any transfusion. Hemoglobin and hematocrit were closely monitored. Blood pressure was stable. GI followed. The patient undergone esophagogastroduodenoscopy, which showed gastritis status post biopsy as well as hemorrhoids and multiple gastric polyps. Pathology showed no evidence of malignancy, gastritis, and no evidence of H. pylori infection. He recommended outpatient colonoscopy. Could not do it at this time since the preparation was poor. ID closely followed. Influenza screen test, blood culture, and pleural fluid culture were all negative. The patient is status post treatment with antibiotics for possible pneumonia. ID followed and recommended to keep the patient off antibiotics and observe closely. The patient is afebrile, persistent leukocytosis, but trending down and multifactorial as suggested by ID at least partially due to the metastatic disease. Structures Engineer closely followed. The patient was on beta-noemi for rate control and blood pressure management. No anticoagulation due to anemia and the patient spontaneously converted to sinus rhythm. Blood pressure was managed with beta-noemi and hydralazine. DVT and GI prophylaxis provided. Physical and occupational therapy services were requested. Tank Hoop Bender closely followed. Renal parameters were closely monitored. Electrolytes were corrected as needed and nephrotoxics were avoided. Psychiatrist followed the patient and diagnosed the patient with major depressive disorder and optimized psychiatric medication regimen. The patient was DNR/DNI status. After discussing with family plan of care, family agreed to palliative care/hospice services. The patient was stable for discharge back to long-term facility with hospice services. FINAL DIAGNOSES: 1. Metastatic renal cell carcinoma with osseous metastasis. 2. Pathological compression fracture of spine. 3. Pneumonia. 4. Bilateral pleural effusion, left more than right. 5. Status post thoracentesis on 05/01/2017 with 1400 mL of fluid removed. 6. Chronic obstructive pulmonary disease. 7. Paroxysmal atrial fibrillation. 8. Hypertension. 9. Anemia of chronic disease. 10. Status post esophagogastroduodenoscopy. 11. Gastritis. 12. Major depression disorder with psychiatric features. 13. Malnutrition. Of note, dietary recommendations were implemented. DISCHARGE MEDICATIONS: See medication reconciliation list. DISCHARGE INSTRUCTIONS: The patient was discharged to long-term facility with hospice services. Ameya Fulton D.O. I have been assigned to dictate discharge summary on this account and I was not involved in the patient's management. Yaa Medellinbertrand chaffee hospitalkelly N.PAmy DR: BE JOB#: [id number] CC:
== END 2017-05-05 20:40 | DRG 186 ==
LOC: EDBD 14:02 → EMR 14:50 → 2E 15:50 → EDBEDREQ 16:05 → 2E 16:44 → 4E 05-02 18:30
PROC: 0DB78ZX Excision of Stomach, Pylorus, Via Natural or Artificial Opening Endoscopic, Diagnostic (ICD-10-PCS; principal; 2017-04-28 11:40)
PROC: 0DJD8ZZ Inspection of Lower Intestinal Tract, Via Natural or Artificial Opening Endoscopic (ICD-10-PCS; principal; 2017-04-28 11:40)
PROC: 0W9B3ZZ Drainage of Left Pleural Cavity, Percutaneous Approach (ICD-10-PCS; 2017-05-01)
DX: J90 Pleural effusion, not elsewhere classified (principal); J18.9 Pneumonia, unspecified organism; C79.51 Secondary malignant neoplasm of bone; F32.3 Major depressive disorder, single episode, severe with psychotic features; E46 Unspecified protein-calorie malnutrition; E27.8 Other specified disorders of adrenal gland; C64.1 Malignant neoplasm of right kidney, except renal pelvis; K92.2 Gastrointestinal hemorrhage, unspecified; J44.0 Chronic obstructive pulmonary disease with (acute) lower respiratory infection; I47.1 Supraventricular tachycardia; I48.92 Unspecified atrial flutter; M84.58XA Pathological fracture in neoplastic disease, other specified site, initial encounter for fracture; N39.0 Urinary tract infection, site not specified; I48.0 Paroxysmal atrial fibrillation; I10 Essential (primary) hypertension; Z72.0 Tobacco use; D64.89 Other specified anemias; E88.09 Other disorders of plasma-protein metabolism, not elsewhere classified; Z79.01 Long term (current) use of anticoagulants; I45.81 Long QT syndrome; E87.6 Hypokalemia; Z68.32 Body mass index [BMI] 32.0-32.9, adult; K31.7 Polyp of stomach and duodenum; K29.50 Unspecified chronic gastritis without bleeding; K64.8 Other hemorrhoids; Z66 Do not resuscitate
CPT/HCPCS: 36415; 70450; 71045; 71260; 74177; 76604; 76942; 80048; 80053; 81003; 82105; 82270; 82378; 82550; 82553; 82570; 82728; 83540; 83550; 83605; 83615; 83880; 83986; 84153; 84165; 84300; 84484; 85007; 85025; 85044; 85610; 85730; 86300; 86304; 86710; 86850; 86900; 86901; 87040; 87070; 87081; 87116; 87205; 88104; 89051; 93005; 93306; 94003; 94150; 94640; 94664; 94760; 97803; 99285; J7620